=== PATIENT | male | born 1955 | race African-American/Black ===

== ENCOUNTER 2016-07-21 15:50 | Inpatient (IN) | payer OTHER ==
[~2016-07-21] VITALS: Ht 165.1 cm; Wt 71.5 kg
[~2016-07-21 15:50] MED LIST: ASPI-1093 PO; AUD NEB; BECL8.7A5 IH; BISA10S PR; CHOL400D8 PO; DEXT15SY3 PO; ESCI10TA PO; FOLI1 PO; HEPA500015 SQ; IPRA0.2S54 NEB; LEVE500T53 PO; LISI-662 PO; MOM30 PO; MULT-1203 PO; OMEP20CA4 PO; PHEN32.43 PO; THIA100 PO; TIOT185 IH
[2016-07-21] MEDS ORDERED: KETOROLAC TROMETHAMINE 30 MG/ML VIAL IVP ONE (17:30)
[2016-07-21] MEDS ORDERED: SODIUM CHLORIDE 0.9% 1,000 ML IV ONE ×2 (17:30→21:15)
[2016-07-21 17:58] LABS: BASOPHILS % (AUTO) 0.2 % (0.0-2.0); EOSINOPHILS % (AUTO) 0.2 % (1.0-6.0); HEMATOCRIT 45.1 % (41-53); HEMOGLOBIN 14.9 g/dL (13.5-17.5); LYMPHOCYTES # (AUTO) 5.6 K/uL (1.0-4.8); LYMPHOCYTES % (AUTO) 46.1 % (22.0-44.0); MEAN CORPUSCULAR HEMOGLOBIN 30.8 pg (26.0-34.0); MEAN CORPUSCULAR HGB CONC 33.1 G/dL (31.0-37.0); MEAN CORPUSCULAR VOLUME 93 fL (80-100); MONOCYTES # (AUTO) 0.9 K/uL (0.1-1.0); MONOCYTES % (AUTO) 7.7 % (2.0-9.0); NEUTROPHILS # (AUTO) 5.6 K/uL (1.8-7.7); NEUTROPHILS % (AUTO) 45.8 % (40.0-70.0); PLATELET COUNT (AUTO) 174 K/uL (150-450); RED BLOOD CELL COUNT(AUTO) 4.84 MIL/uL (4.50-5.90); RED CELL DISTRIBUTION WIDTH 15.8 % (11.5-14.5); WHITE BLOOD COUNT (AUTO) 12.2 K/uL (4.5-11.0)
[2016-07-21 18:17] LABS: ANION GAP 15 mmol/L (8-16); CALCIUM, TOTAL 8.7 mg/dL (8.8-10.5); CARBON DIOXIDE 22 mmol/L (22-29); CHLORIDE 102 mmol/L (98-107); CREATININE 1.66 mg/dL (0.60-1.30); GLOMERULAR FILTR. RATE CALC 52 mL/min (>60); POTASSIUM 4.3 mmol/L (3.5-5.1); SODIUM SERUM 139 mmol/L (136-145); UREA NITROGEN, BLOOD 42 mg/dL (7-18)
[2016-07-21 18:24] LABS: ALANINE AMINOTRANSFERASE 63 U/L (12-78); ALBUMIN 3.7 g/dL (3.4-5.0); ASPARTATE AMINOTRANSFERASE 64 U/L (15-37); BILIRUBIN,TOTAL 0.4 mg/dL (0.1-1.0); CREATINE KINASE, TOTAL 160 U/L (39-308); TOTAL PROTEIN, SERUM 9.1 g/dL (6.4-8.2)
[2016-07-21 18:45] LABS: CREATINE KINASE MB 1.9 ng/mL (0-5)
[2016-07-21] MEDS ORDERED: MORPHINE SULFATE 4 MG/ML SYRINGE IVP ONE (22:30)
[2016-07-21 23:20] VITALS: BP 130/76
[2016-07-22] VITALS (7 sets, daily range): BP systolic 90–128; BP diastolic 52–83
[2016-07-22] MEDS ORDERED: SODIUM CHLORIDE 0.9% 1,000 ML IV SCH ×2 (00:54→17:30)
[2016-07-22] MEDS ORDERED: ONDANSETRON HCL 4 MG/2 ML VIAL IVP PRN ×3 (01:00→10:15)
[2016-07-22] MEDS ORDERED: ChlordiazePOXIDE HCL 25 MG CAPSULE PO PRN (01:00)
[2016-07-22] MEDS ORDERED: 0.9% SODIUM CHLORIDE 10 ML SYRINGE IVP PRN (01:00)
[2016-07-22] MEDS: BECLOMETHASONE DIPR 80 MCG/PUFF 8.7 GM INHALER IH SCH ×3 (01:00→21:06)
[2016-07-22] MEDS ORDERED: MORPHINE SULFATE 4 MG/ML SYRINGE IVP PRN ×2 (01:30→10:15)
[2016-07-22] MEDS: DOCUSATE SODIUM 100 MG CAPSULE PO SCH ×3 (01:32→21:04)
[2016-07-22] MEDS: LevETIRAcetam 500 MG TABLET PO SCH ×3 (01:32→21:04)
[2016-07-22] MEDS: THIAMINE HCL 100 MG TABLET PO SCH ×3 (01:32→21:04)
[2016-07-22] MEDS: ChlordiazePOXIDE HCL 25 MG CAPSULE PO PRN ×4 (01:32→09:16)
[2016-07-22] MEDS: PHENobarbital 30 MG TABLET PO SCH ×3 (01:32→21:04)
[2016-07-22] MEDS: SODIUM CHLORIDE 0.9% 1,000 ML IV SCH ×3 (01:59→21:05)
[2016-07-22] MEDS: ALBUTEROL SULFATE 2.5 MG/0.5 ML NEB SOLUTION NEB SCH ×4 (02:00→20:45)
[2016-07-22] MEDS: OxyCODONE HCL/ACETAMINOPHEN 5-325 MG TABLET PO PRN ×2 (05:56→12:14)
[2016-07-22 06:06] LABS: BASOPHILS % (AUTO) 0.6 % (0.0-2.0); EOSINOPHILS % (AUTO) 3.6 % (1.0-6.0); HEMATOCRIT 37.6 % (41-53); HEMOGLOBIN 12.3 g/dL (13.5-17.5); LYMPHOCYTES # (AUTO) 3.6 K/uL (1.0-4.8); LYMPHOCYTES % (AUTO) 46.3 % (22.0-44.0); MEAN CORPUSCULAR HEMOGLOBIN 30.6 pg (26.0-34.0); MEAN CORPUSCULAR HGB CONC 32.7 G/dL (31.0-37.0); MEAN CORPUSCULAR VOLUME 94 fL (80-100); MONOCYTES # (AUTO) 0.8 K/uL (0.1-1.0); MONOCYTES % (AUTO) 9.6 % (2.0-9.0); NEUTROPHILS # (AUTO) 3.1 K/uL (1.8-7.7); NEUTROPHILS % (AUTO) 39.9 % (40.0-70.0); PLATELET COUNT (AUTO) 136 K/uL (150-450); RED BLOOD CELL COUNT(AUTO) 4.01 MIL/uL (4.50-5.90); WHITE BLOOD COUNT (AUTO) 7.8 K/uL (4.5-11.0)
[2016-07-22 06:23] LABS: ANION GAP 9 mmol/L (8-16); CALCIUM, TOTAL 7.7 mg/dL (8.8-10.5); CARBON DIOXIDE 24 mmol/L (22-29); CHLORIDE 108 mmol/L (98-107); CREATININE 0.97 mg/dL (0.60-1.30); GLOMERULAR FILTR. RATE CALC > 60 mL/min (>60); POTASSIUM 4.4 mmol/L (3.5-5.1); SODIUM SERUM 141 mmol/L (136-145); UREA NITROGEN, BLOOD 32 mg/dL (7-18)
[2016-07-22] MEDS ORDERED: KETOROLAC TROMETHAMINE 30 MG/ML VIAL IVP ONE (07:30)
[2016-07-22] MEDS ORDERED: ONDANSETRON HCL 4 MG/2 ML VIAL IVP ONE (07:30)
[2016-07-22] MEDS ORDERED: SODIUM CHLORIDE 0.9% 1,000 ML IV ONE ×2 (07:30→10:15)
[2016-07-22] MEDS ORDERED: PANTOPRAZOLE SODIUM 40 MG/VIAL IVP SCH (09:00)
[2016-07-22] MEDS ORDERED: MULTIVITAMINS, THERAPEUTIC TABLET PO SCH (09:00)
[2016-07-22] MEDS ORDERED: FOLIC ACID 1 MG TABLET PO SCH (09:00)
[2016-07-22] MEDS ORDERED: BISACODYL 10 MG RECTAL RECTAL SUPPOSITORY PR SCH (09:00)
[2016-07-22] MEDS ORDERED: LISINOPRIL 20 MG TABLET PO SCH (09:00)
[2016-07-22] MEDS ORDERED: THIAMINE HCL 100 MG/ML 2ML VIAL IM SCH (09:00)
[2016-07-22] MEDS ORDERED: CALCIUM GLUCONATE 1,000 MG in DEXTROSE 5%-WATER 50 ML IV ONE (09:15)
[2016-07-22] MEDS: ASPIRIN 81 MG EC TABLET PO SCH (09:16)
[2016-07-22] MEDS: FOLIC ACID 1 MG TABLET PO SCH (09:17)
[2016-07-22] MEDS: PANTOPRAZOLE SODIUM 40 MG/VIAL IVP SCH (09:17)
[2016-07-22] MEDS: MULTIVITAMINS, THERAPEUTIC TABLET PO SCH (09:17)
[2016-07-22] MEDS: CHOLECALCIFEROL (VIT D3) 1,000 UNITS TABLET PO SCH (09:17)
[2016-07-22] MEDS: TIOTROPIUM BROMIDE 18 MCG/INH HANDIHALER [5] IH SCH (09:18)
[2016-07-22] MEDS ORDERED: 0.9% SODIUM CHLORIDE 5 ML NEB SOLUTION NEB ONE ×4 (09:26→20:45)
[2016-07-22] MEDS ORDERED: LORazepam 2 MG/ML VIAL IVP PRN (11:00)
[2016-07-22] MEDS ORDERED: MAGNESIUM SULFATE 2 GM in DEXTROSE 5%-WATER 50 ML IV PRN (11:00)
[2016-07-22] MEDS ORDERED: MAGNESIUM OXIDE 400 MG TABLET PO PRN (11:00)
[2016-07-22] MEDS ORDERED: MAGNESIUM SULFATE 4 GM/WATER 100 ML IV PRN (11:00)
[2016-07-22 11:10] LABS: ALBUMIN 2.9 g/dL (3.4-5.0)
[2016-07-22] MEDS ORDERED: SODIUM CHLORIDE 0.9% 500 ML IV ONE ×3 (15:45→20:00)
[2016-07-22] MEDS ORDERED: VITAD1000 PO (15:45)
[2016-07-22] MEDS: ESCITALOPRAM OXALATE 10 MG TABLET PO SCH (16:39)
[2016-07-22] MEDS ORDERED: INFLUENZA VIRUS VACCINE QVS 2016-17 (3YR+)/PF 60 MCG/0.5 ML SYRINGE IM ONE (18:30)
[2016-07-22] MEDS ORDERED: ACETAMINOPHEN 325 MG TABLET PO PRN (20:00)
[2016-07-23] MEDS: ALBUTEROL SULFATE 2.5 MG/0.5 ML NEB SOLUTION NEB SCH ×2 (02:16→09:23)
[2016-07-23] MEDS ORDERED: 0.9% SODIUM CHLORIDE 5 ML NEB SOLUTION NEB ONE ×3 (02:17→14:09)
[2016-07-23] MEDS: OxyCODONE HCL/ACETAMINOPHEN 5-325 MG TABLET PO PRN ×3 (05:09→13:10)
[2016-07-23 05:12] VITALS: BP 143/96
[2016-07-23 06:13] LABS: BASOPHILS % (AUTO) 0.4 % (0.0-2.0); EOSINOPHILS % (AUTO) 3.3 % (1.0-6.0); HEMATOCRIT 43.2 % (41-53); HEMOGLOBIN 13.9 g/dL (13.5-17.5); LYMPHOCYTES # (AUTO) 2.5 K/uL (1.0-4.8); LYMPHOCYTES % (AUTO) 51.7 % (22.0-44.0); MEAN CORPUSCULAR HEMOGLOBIN 30.8 pg (26.0-34.0); MEAN CORPUSCULAR HGB CONC 32.3 G/dL (31.0-37.0); MEAN CORPUSCULAR VOLUME 95 fL (80-100); MONOCYTES # (AUTO) 0.5 K/uL (0.1-1.0); MONOCYTES % (AUTO) 9.7 % (2.0-9.0); NEUTROPHILS # (AUTO) 1.7 K/uL (1.8-7.7); NEUTROPHILS % (AUTO) 34.9 % (40.0-70.0); PLATELET COUNT (AUTO) 123 K/uL (150-450); RED BLOOD CELL COUNT(AUTO) 4.53 MIL/uL (4.50-5.90); RED CELL DISTRIBUTION WIDTH 16.2 % (11.5-14.5); WHITE BLOOD COUNT (AUTO) 4.8 K/uL (4.5-11.0)
[2016-07-23 06:29] LABS: ANION GAP 6 mmol/L (8-16); CALCIUM, TOTAL 7.8 mg/dL (8.8-10.5); CARBON DIOXIDE 25 mmol/L (22-29); CHLORIDE 111 mmol/L (98-107); CREATININE 0.75 mg/dL (0.60-1.30); GLOMERULAR FILTR. RATE CALC > 60 mL/min (>60); POTASSIUM 4.4 mmol/L (3.5-5.1); SODIUM SERUM 142 mmol/L (136-145); UREA NITROGEN, BLOOD 16 mg/dL (7-18)
[2016-07-23] MEDS ORDERED: ChlordiazePOXIDE HCL 25 MG CAPSULE PO PRN ×2 (07:00)
[2016-07-23] MEDS: SODIUM CHLORIDE 0.9% 1,000 ML IV SCH (07:07)
[2016-07-23 07:20] VITALS: BP 142/87
[2016-07-23] MEDS: LevETIRAcetam 500 MG TABLET PO SCH (08:41)
[2016-07-23] MEDS: CHOLECALCIFEROL (VIT D3) 1,000 UNITS TABLET PO SCH (08:41)
[2016-07-23] MEDS: PANTOPRAZOLE SODIUM 40 MG/VIAL IVP SCH (08:41)
[2016-07-23] MEDS: FOLIC ACID 1 MG TABLET PO SCH (08:41)
[2016-07-23] MEDS: THIAMINE HCL 100 MG TABLET PO SCH (08:41)
[2016-07-23] MEDS: PHENobarbital 30 MG TABLET PO SCH (08:41)
[2016-07-23] MEDS: DOCUSATE SODIUM 100 MG CAPSULE PO SCH (08:42)
[2016-07-23] MEDS: ASPIRIN 81 MG EC TABLET PO SCH (08:42)
[2016-07-23] MEDS: MULTIVITAMINS, THERAPEUTIC TABLET PO SCH (08:42)
[2016-07-23] MEDS: ESCITALOPRAM OXALATE 10 MG TABLET PO SCH (08:43)
[2016-07-23] MEDS: TIOTROPIUM BROMIDE 18 MCG/INH HANDIHALER [5] IH SCH (08:43)
[2016-07-23] MEDS: BECLOMETHASONE DIPR 80 MCG/PUFF 8.7 GM INHALER IH SCH (08:43)
[2016-07-23] MEDS ORDERED: ChlordiazePOXIDE HCL 25 MG CAPSULE PO SCH ×2 (09:00)
[2016-07-23 11:52] VITALS: BP 123/72
[2016-07-25] MEDS ORDERED: ChlordiazePOXIDE HCL 10 MG CAPSULE PO PRN ×2 (07:00)
[2016-07-25] MEDS ORDERED: ChlordiazePOXIDE HCL 10 MG CAPSULE PO SCH ×2 (09:00)
[2016-07-26] MEDS ORDERED: ChlordiazePOXIDE HCL 10 MG CAPSULE PO PRN ×2 (07:00)
== END 2016-07-23 14:15 | disposition home or self-care (01) | DRG 775 ==
LOC: EMS 15:52 → 6N 22:09
PROVIDERS: ADMIT Internal Medicine; ATTEND Internal Medicine
PROC: 3E0234Z Introduction of Serum, Toxoid and Vaccine into Muscle, Percutaneous Approach (ICD-10-PCS; principal; 2016-07-22)
DX: F10.229 Alcohol dependence with intoxication, unspecified (principal); N17.9 Acute kidney failure, unspecified; E44.0 Moderate protein-calorie malnutrition; J44.9 Chronic obstructive pulmonary disease, unspecified; I10 Essential (primary) hypertension; E11.9 Type 2 diabetes mellitus without complications; E78.5 Hyperlipidemia, unspecified; G40.909 Epilepsy, unspecified, not intractable, without status epilepticus; B19.20 Unspecified viral hepatitis C without hepatic coma; F17.200 Nicotine dependence, unspecified, uncomplicated; E86.0 Dehydration; Z53.29 Procedure and treatment not carried out because of patient's decision for other reasons; M19.011 Primary osteoarthritis, right shoulder; F19.10 Other psychoactive substance abuse, uncomplicated; Y90.6 Blood alcohol level of 120-199 mg/100 ml; Z68.26 Body mass index [BMI] 26.0-26.9, adult; Z79.82 Long term (current) use of aspirin; Z91.19 Patient's noncompliance with other medical treatment and regimen; Z79.899 Other long term (current) drug therapy; Z23 Encounter for immunization
CPT/HCPCS: 83735; 94640; 96361; 96374; 96375; 99285; C9113; G0480; J1885; J2270; J3535; J7030; J7040

== ENCOUNTER 2016-07-24 03:17 | Emergency (ER) | payer OTHER ==
[~2016-07-24] VITALS: Ht 177.8 cm; Wt 76.0 kg
[~2016-07-24 03:17] MED LIST changes: -CHOL400D8 PO; -DEXT15SY3 PO; -HEPA500015 SQ; -IPRA0.2S54 NEB; -LISI-662 PO; -MOM30 PO; -OMEP20CA4 PO; +VITAD1000 PO
[2016-07-24 04:43] LABS: BASOPHILS # (AUTO) 0.18 K/uL (0.00-0.20); BASOPHILS % (AUTO) 2.4 % (0.0-2.0); EOSINOPHILS # (AUTO) 0.18 K/uL (0.00-0.70); EOSINOPHILS % (AUTO) 2.36 % (1.0-6.0); HEMATOCRIT 36.6 % (41-53); HEMOGLOBIN 12.3 g/dL (13.5-17.5); LYMPHOCYTES % (AUTO) 39.5 % (22.0-44.0); MEAN CORPUSCULAR HEMOGLOBIN 31.3 pg (26.0-34.0); MEAN CORPUSCULAR HGB CONC 33.7 G/dL (31.0-37.0); MEAN CORPUSCULAR VOLUME 93 fL (80-100); MONOCYTES # (AUTO) 0.8 K/uL (0.1-1.0); NEUTROPHILS # (AUTO) 3.4 K/uL (1.8-7.7); NEUTROPHILS % (AUTO) 44.8 % (40.0-70.0); PLATELET COUNT (AUTO) 130 K/uL (150-450); RED BLOOD CELL COUNT(AUTO) 3.94 MIL/uL (4.50-5.90); RED CELL DISTRIBUTION WIDTH 16.9 % (11.5-14.5); WHITE BLOOD COUNT (AUTO) 7.5 K/uL (4.5-11.0)
[2016-07-24 04:48] LABS: ANION GAP 10 mmol/L (8-16); CALCIUM, TOTAL 8.2 mg/dL (8.8-10.5); CARBON DIOXIDE 23 mmol/L (22-29); CHLORIDE 110 mmol/L (98-107); CREATININE 0.76 mg/dL (0.60-1.30); GLOMERULAR FILTR. RATE CALC > 60 mL/min (>60); POTASSIUM 4.1 mmol/L (3.5-5.1); SODIUM SERUM 143 mmol/L (136-145); UREA NITROGEN, BLOOD 10 mg/dL (7-18)
[2016-07-24 04:53] LABS: ALANINE AMINOTRANSFERASE 73 U/L (12-78); ASPARTATE AMINOTRANSFERASE 82 U/L (15-37); BILIRUBIN,TOTAL 0.2 mg/dL (0.1-1.0); TOTAL PROTEIN, SERUM 7.4 g/dL (6.4-8.2)
[2016-07-24 06:14] VITALS: BP 125/88
== END 2016-07-24 06:28 | disposition home or self-care (01) ==
LOC: EMS 03:20
DX: F10.229 Alcohol dependence with intoxication, unspecified (principal); E78.00 Pure hypercholesterolemia, unspecified; J44.9 Chronic obstructive pulmonary disease, unspecified; I10 Essential (primary) hypertension; E11.9 Type 2 diabetes mellitus without complications; Z79.82 Long term (current) use of aspirin; Y90.6 Blood alcohol level of 120-199 mg/100 ml
CPT/HCPCS: 36415; 80053; 80307; 84484; 85025; 99284; G0480

== ENCOUNTER 2016-10-29 03:48 | Emergency (ER) | payer OTHER ==
[~2016-10-29] VITALS: Ht 165.1 cm; Wt 75.0 kg
[2016-10-29] MEDS ORDERED: ACETAMINOPHEN 500 MG TABLET PO ONE (04:30)
[2016-10-29 04:55] LABS: BASOPHILS % (AUTO) 0.3 % (0.0-2.0); HEMATOCRIT 39.6 % (41-53); HEMOGLOBIN 13.2 g/dL (13.5-17.5); LYMPHOCYTES # (AUTO) 3.5 K/uL (1.0-4.8); LYMPHOCYTES % (AUTO) 54.3 % (22.0-44.0); MEAN CORPUSCULAR HEMOGLOBIN 30.8 pg (26.0-34.0); MEAN CORPUSCULAR HGB CONC 33.5 G/dL (31.0-37.0); MEAN CORPUSCULAR VOLUME 92 fL (80-100); MONOCYTES # (AUTO) 0.5 K/uL (0.1-1.0); MONOCYTES % (AUTO) 7.5 % (2.0-9.0); NEUTROPHILS # (AUTO) 2.2 K/uL (1.8-7.7); NEUTROPHILS % (AUTO) 33.9 % (40.0-70.0); PLATELET COUNT (AUTO) 192 K/uL (150-450); RED BLOOD CELL COUNT(AUTO) 4.31 MIL/uL (4.50-5.90); RED CELL DISTRIBUTION WIDTH 14.7 % (11.5-14.5); WHITE BLOOD COUNT (AUTO) 6.4 K/uL (4.5-11.0)
[2016-10-29 05:05] LABS: ANION GAP 13 mmol/L (8-16); CALCIUM, TOTAL 8.6 mg/dL (8.8-10.5); CARBON DIOXIDE 28 mmol/L (22-29); CHLORIDE 104 mmol/L (98-107); CREATININE 0.93 mg/dL (0.60-1.30); GLOMERULAR FILTR. RATE CALC > 60 mL/min (>60); POTASSIUM 3.4 mmol/L (3.5-5.1); SODIUM SERUM 145 mmol/L (136-145); UREA NITROGEN, BLOOD 9 mg/dL (7-18)
[2016-10-29 05:11] LABS: ALANINE AMINOTRANSFERASE 165 U/L (12-78); ALBUMIN 3.7 g/dL (3.4-5.0); ASPARTATE AMINOTRANSFERASE 221 U/L (15-37); BILIRUBIN,TOTAL 0.7 mg/dL (0.1-1.0); PHENOBARBITAL 1 mcg/mL (15-40); TOTAL PROTEIN, SERUM 8.5 g/dL (6.4-8.2)
[2016-10-29] MEDS ORDERED: ASPIRIN 81 MG CHEWABLE TABLET PO ONE (06:00)
[2016-10-29] MEDS ORDERED: LORazepam 1 MG TABLET PO ONE (08:45)
[2016-10-29 11:04] VITALS: BP 136/80
== END 2016-10-29 11:34 | disposition home or self-care (01) ==
LOC: EMS 03:49
DX: G40.909 Epilepsy, unspecified, not intractable, without status epilepticus (principal); K70.10 Alcoholic hepatitis without ascites; R07.89 Other chest pain; Z76.5 Malingerer [conscious simulation]; J44.9 Chronic obstructive pulmonary disease, unspecified; E11.9 Type 2 diabetes mellitus without complications; E78.00 Pure hypercholesterolemia, unspecified; I10 Essential (primary) hypertension; B19.20 Unspecified viral hepatitis C without hepatic coma
CPT/HCPCS: 36415; 70450; 80053; 80184; 80307; 83880; 84484; 85025; 93005; 99285; G0480

== ENCOUNTER 2016-11-06 05:26 | Emergency (ER) | payer OTHER ==
[~2016-11-06] VITALS: Ht 172.7 cm; Wt 100.0 kg
[2016-11-06] MEDS ORDERED: LORazepam 1 MG TABLET PO ONE (06:30)
[2016-11-06] MEDS ORDERED: KETOROLAC TROMETHAMINE 60 MG/2 ML VIAL IM ONE (06:30)
[2016-11-06 07:04] VITALS: BP 125/78
== END 2016-11-06 07:52 | disposition home or self-care (01) ==
LOC: EMS 05:28
DX: K62.3 Rectal prolapse (principal); F10.229 Alcohol dependence with intoxication, unspecified; B19.20 Unspecified viral hepatitis C without hepatic coma; E11.9 Type 2 diabetes mellitus without complications; E78.00 Pure hypercholesterolemia, unspecified; I10 Essential (primary) hypertension; J44.9 Chronic obstructive pulmonary disease, unspecified; R56.9 Unspecified convulsions; K76.9 Liver disease, unspecified
CPT/HCPCS: 96372; 99283; J1885

== ENCOUNTER 2016-12-03 00:56 | Emergency (ER) | payer OTHER ==
[~2016-12-03] VITALS: Ht 167.6 cm; Wt 72.6 kg
[2016-12-03] MEDS ORDERED: AMIT10TA6 PO (01:11)
[2016-12-03] MEDS ORDERED: LEVE250T55 PO (01:11)
[2016-12-03] MEDS ORDERED: ALBU8HFA IH (01:11)
[2016-12-03] MEDS ORDERED: BECL8.7A7 IH (01:11)
[2016-12-03] MEDS ORDERED: AMLO-343 PO (01:11)
[2016-12-03] MEDS ORDERED: ASPI-556 PO (01:11)
[2016-12-03] MEDS ORDERED: MULT-1203 PO (01:11)
[2016-12-03] MEDS ORDERED: VIT1TABL95 PO (01:11)
[2016-12-03] MEDS ORDERED: THIA100 PO (01:11)
[2016-12-03] MEDS ORDERED: LIDO700A30 TP (01:11)
[2016-12-03] MEDS ORDERED: IBUP-1506 PO (01:11)
[2016-12-03] MEDS ORDERED: FOLI1 PO (01:11)
[2016-12-03] MEDS ORDERED: LevETIRAcetam 1,000 MG in DEXTROSE 5%-WATER 100 ML IV ONE (01:45)
[2016-12-03] MEDS ORDERED: SODIUM CHLORIDE 0.9% 1,000 ML IV ONE (02:00)
[2016-12-03 02:04] LABS: BASOPHILS % (AUTO) 0.4 % (0.0-2.0); EOSINOPHILS % (AUTO) 3.5 % (1.0-6.0); HEMATOCRIT 35.1 % (41-53); HEMOGLOBIN 11.5 g/dL (13.5-17.5); LYMPHOCYTES # (AUTO) 4.8 K/uL (1.0-4.8); LYMPHOCYTES % (AUTO) 50.6 % (22.0-44.0); MEAN CORPUSCULAR HEMOGLOBIN 30.5 pg (26.0-34.0); MEAN CORPUSCULAR HGB CONC 32.7 G/dL (31.0-37.0); MEAN CORPUSCULAR VOLUME 93 fL (80-100); MONOCYTES # (AUTO) 0.7 K/uL (0.1-1.0); MONOCYTES % (AUTO) 7.1 % (2.0-9.0); NEUTROPHILS # (AUTO) 3.6 K/uL (1.8-7.7); NEUTROPHILS % (AUTO) 38.4 % (40.0-70.0); PLATELET COUNT (AUTO) 223 K/uL (150-450); RED BLOOD CELL COUNT(AUTO) 3.78 MIL/uL (4.50-5.90); RED CELL DISTRIBUTION WIDTH 16.5 % (11.5-14.5); WHITE BLOOD COUNT (AUTO) 9.5 K/uL (4.5-11.0)
[2016-12-03 02:11] LABS: ANION GAP 9 mmol/L (8-16); CALCIUM, TOTAL 8.5 mg/dL (8.8-10.5); CARBON DIOXIDE 28 mmol/L (22-29); CHLORIDE 106 mmol/L (98-107); CREATININE 1.13 mg/dL (0.60-1.30); GLOMERULAR FILTR. RATE CALC > 60 mL/min (>60); POTASSIUM 4.1 mmol/L (3.5-5.1); SODIUM SERUM 143 mmol/L (136-145); UREA NITROGEN, BLOOD 24 mg/dL (7-18)
[2016-12-03 02:17] LABS: ALANINE AMINOTRANSFERASE 237 U/L (12-78); ALBUMIN 3.2 g/dL (3.4-5.0); ASPARTATE AMINOTRANSFERASE 205 U/L (15-37); BILIRUBIN,TOTAL 0.6 mg/dL (0.1-1.0); TOTAL PROTEIN, SERUM 8.3 g/dL (6.4-8.2)
[2016-12-03 09:14] VITALS: BP 133/79
== END 2016-12-03 09:50 | disposition home or self-care (01) ==
LOC: EMS 00:57
DX: T51.91XA Toxic effect of unspecified alcohol, accidental (unintentional), initial encounter (principal); G40.909 Epilepsy, unspecified, not intractable, without status epilepticus; D64.9 Anemia, unspecified; F10.229 Alcohol dependence with intoxication, unspecified; J44.9 Chronic obstructive pulmonary disease, unspecified; E11.9 Type 2 diabetes mellitus without complications; I10 Essential (primary) hypertension; E78.00 Pure hypercholesterolemia, unspecified; Z79.82 Long term (current) use of aspirin; Y90.8 Blood alcohol level of 240 mg/100 ml or more; Y92.89 Other specified places as the place of occurrence of the external cause
CPT/HCPCS: 36415; 70450; 71010; 80053; 80307; 85025; 93005; 96365; 99291; G0480; J0712; J7030; J7060; 99285

== ENCOUNTER 2016-12-08 21:50 | Emergency (ER) | payer OTHER ==
[~2016-12-08] VITALS: Ht 175.3 cm; Wt 95.0 kg
[~2016-12-08 21:50] MED LIST changes: +ALBU8HFA IH; +AMIT10TA6 PO; -ASPI-1093 PO; +ASPI-556 PO; -AUD NEB; -BISA10S PR; -ESCI10TA PO; +IBUP-1546 PO; +LEVE250T55 PO; -LEVE500T53 PO; +LIDO700A30 TP; -PHEN32.43 PO; -TIOT185 IH; +VIT1TABL95 PO; -VITAD1000 PO; +[UNRECOGNIZED DRUG - CODE] PO
[2016-12-08 22:26] LABS: BASOPHILS % (AUTO) 1.1 % (0.0-2.0); EOSINOPHILS % (AUTO) 3.4 % (1.0-6.0); HEMATOCRIT 34.7 % (41-53); HEMOGLOBIN 11.6 g/dL (13.5-17.5); LYMPHOCYTES # (AUTO) 5.3 K/uL (1.0-4.8); LYMPHOCYTES % (AUTO) 58.3 % (22.0-44.0); MEAN CORPUSCULAR HEMOGLOBIN 30.2 pg (26.0-34.0); MEAN CORPUSCULAR HGB CONC 33.3 G/dL (31.0-37.0); MEAN CORPUSCULAR VOLUME 91 fL (80-100); MONOCYTES # (AUTO) 0.6 K/uL (0.1-1.0); MONOCYTES % (AUTO) 6.3 % (2.0-9.0); NEUTROPHILS # (AUTO) 2.8 K/uL (1.8-7.7); NEUTROPHILS % (AUTO) 30.9 % (40.0-70.0); PLATELET COUNT (AUTO) 192 K/uL (150-450); RED BLOOD CELL COUNT(AUTO) 3.83 MIL/uL (4.50-5.90); RED CELL DISTRIBUTION WIDTH 16.8 % (11.5-14.5); WHITE BLOOD COUNT (AUTO) 9.1 K/uL (4.5-11.0)
[2016-12-08 22:37] LABS: ANION GAP 12 mmol/L (8-16); CALCIUM, TOTAL 8.7 mg/dL (8.8-10.5); CARBON DIOXIDE 24 mmol/L (22-29); CHLORIDE 108 mmol/L (98-107); CREATININE 1.19 mg/dL (0.60-1.30); GLOMERULAR FILTR. RATE CALC > 60 mL/min (>60); POTASSIUM 3.1 mmol/L (3.5-5.1); SODIUM SERUM 144 mmol/L (136-145); UREA NITROGEN, BLOOD 16 mg/dL (7-18)
[2016-12-08 22:43] LABS: ALANINE AMINOTRANSFERASE 217 U/L (12-78); ALBUMIN 3.5 g/dL (3.4-5.0); ASPARTATE AMINOTRANSFERASE 302 U/L (15-37); BILIRUBIN,TOTAL 0.6 mg/dL (0.1-1.0); TOTAL PROTEIN, SERUM 8.6 g/dL (6.4-8.2)
[2016-12-08] MEDS ORDERED: ALBUTEROL SULFATE 2.5 MG/0.5 ML NEB SOLUTION NEB ONE (23:45)
[2016-12-08] MEDS ORDERED: ALBUTEROL SULFATE 5 MG/ML 20 ML NEB SOLN [BULK] NEB ONE (23:45)
[2016-12-08] MEDS ORDERED: IPRATROPIUM BROMIDE 0.5 MG/2.5 ML NEB SOLUTION NEB ONE (23:45)
[2016-12-09] MEDS ORDERED: POTASSIUM CHLORIDE 20 MEQ ER TABLET PO ONE
[2016-12-09] MEDS ORDERED: IPRATROPIUM BROMIDE 0.5 MG/2.5 ML NEB SOLUTION NEB ONE (01:15)
[2016-12-09] MEDS ORDERED: ALBUTEROL SULFATE 5 MG/ML 20 ML NEB SOLN [BULK] NEB ONE (01:15)
[2016-12-09] MEDS ORDERED: 0.9% SODIUM CHLORIDE 15 ML NEB SOLUTION NEB ONE (01:37)
[2016-12-09 02:58] VITALS: BP 138/88
== END 2016-12-09 03:00 | disposition home or self-care (01) ==
LOC: EMS 22:02
DX: J44.1 Chronic obstructive pulmonary disease with (acute) exacerbation (principal); E11.9 Type 2 diabetes mellitus without complications; I10 Essential (primary) hypertension; E78.00 Pure hypercholesterolemia, unspecified; Z88.5 Allergy status to narcotic agent
CPT/HCPCS: 93005; 94644; 94645; 99285

== ENCOUNTER 2017-01-31 03:19 | Inpatient (IN) | payer OTHER ==
[~2017-01-31] VITALS: Ht 167.6 cm; Wt 72.6 kg
[~2017-01-31 03:19] MED LIST changes: +AMLO-343 PO; -BECL8.7A5 IH; +BECL8.7A7 IH; +IBUP-1506 PO; -IBUP-1546 PO; -[UNRECOGNIZED DRUG - CODE] PO
[2017-01-31] MEDS ORDERED: NALOXONE HCL 1 MG/ML 2 ML SYG IVP ONE (03:30)
[2017-01-31] MEDS ORDERED: PROPOFOL 1000 MG/ISO-OSM 100 ML IV ONE ×2 (03:43→15:50)
[2017-01-31] MEDS ORDERED: LACTULOSE 20 GM/30 ML SOLUTION UDCUP NG ONE (03:45)
[2017-01-31] MEDS ORDERED: VECURONIUM BROMIDE 10 MG/VIAL IVP ONE (03:45)
[2017-01-31] MEDS: PROPOFOL 1000 MG/ISO-OSM 100 ML IV PRN ×4 (03:45→21:23)
[2017-01-31 04:19] LABS: INFLUENZA TYPE A NEGATIVE FOR TYPE A (NEGATIVE)
[2017-01-31 04:20] LABS: INFLUENZA TYPE B NEGATIVE FOR TYPE B (NEGATIVE)
[2017-01-31 04:37] LABS: HEMATOCRIT 34.7 % (41-53); HEMOGLOBIN 11.2 g/dL (13.5-17.5); MEAN CORPUSCULAR HEMOGLOBIN 29.4 pg (26.0-34.0); MEAN CORPUSCULAR HGB CONC 32.4 G/dL (31.0-37.0); MEAN CORPUSCULAR VOLUME 91 fL (80-100); PLATELET COUNT (AUTO) 131 K/uL (150-450); RED BLOOD CELL COUNT(AUTO) 3.82 MIL/uL (4.50-5.90); RED CELL DISTRIBUTION WIDTH 19.8 % (11.5-14.5)
[2017-01-31 04:46] LABS: INR 1.2 (0.9-1.1); PROTHROMBIN TIME 12.6 SEC (9.4-11.6)
[2017-01-31 04:52] LABS: AMMONIA 57 umol/L (11-32); LACTIC ACID 1.4 mmol/L (0.4-2.0)
[2017-01-31 05:01] LABS: TROPONIN I < 0.02 ng/mL (0.00-0.05)
[2017-01-31 05:10] LABS: ALANINE AMINOTRANSFERASE 263 U/L (12-78); ALBUMIN 3.5 g/dL (3.4-5.0); ALKALINE PHOSPHATASE 125 U/L (46-116); ANION GAP 9 mmol/L (8-16); ASPARTATE AMINOTRANSFERASE 387 U/L (15-37); BILIRUBIN,TOTAL 1.6 mg/dL (0.1-1.0); CALCIUM, TOTAL 8.5 mg/dL (8.8-10.5); CARBON DIOXIDE 28 mmol/L (22-29); CHLORIDE 103 mmol/L (98-107); CREATINE KINASE, TOTAL 101 U/L (39-308); CREATININE 0.67 mg/dL (0.60-1.30); GLOMERULAR FILTR. RATE CALC > 60 mL/min (>60); GLUCOSE,RANDOM 130 mg/dL (70-110); LIPASE 139 U/L (73-393); SODIUM SERUM 140 mmol/L (136-145); TOTAL PROTEIN, SERUM 8.2 g/dL (6.4-8.2); UREA NITROGEN, BLOOD 10 mg/dL (7-18)
[2017-01-31 05:14] LABS: POTASSIUM 2.9 mmol/L (3.5-5.1)
[2017-01-31 05:15] LABS: B-TYPE NATRIURETIC PEPTIDE 28 pg/mL (0-100)
[2017-01-31 05:16] LABS: ACETAMINOPHEN < 2 mcg/mL (10-30); PHENYTOIN (DILANTIN) < 0.5 mcg/mL (10.0-20.0)
[2017-01-31 05:18] LABS: EOSINOPHILS % (MANUAL) 4 % (1-6); LYMPHOCYTES % (MANUAL) 61 % (22-44); MONOCYTES % (MANUAL) 2 % (2-9); SEGMENTED NEUTROPHILS % 33 % (40-70)
[2017-01-31 05:22] LABS: ABG A-A DIFF O2 155.9 mmHg (10-20.0); ABG BASE EXCESS 1.8 mmol/L (-2.0-3.0); ABG CARBOXYHEMOGLOBIN 1.3 % (0.0-1.5); ABG HCO3 25.6 mmol/L (22.0-26.0); ABG METHEMOGLOBIN 0.4 % (0.0-1.5); ABG OXYGEN CONTENT 18.9 mL/dL (15.0-23.0); ABG OXYGEN SATURATION 99.7 % (95.0-98.0); ABG PCO2 46 mmHg (35-45); ABG PH 7.382 (7.35-7.450); ABG TOTAL HEMOGLOBIN 12.7 G/dL (12.0-18.0); PO2, ARTERIAL BG 514.1 mmHg (79.0-87.0); SOURCE, BLOOD GAS ARTERIAL; TEMPERATURE, FAHRENHEIT, BG 96.5 FAHREN (96.0-98.6)
[2017-01-31 05:23] LABS: O2 DEVICE,BLOOD GAS VENTILATOR (ROOM AIR); PEEP,BG 5 cm H2O; SITE, BLOOD GAS RT RADIAL; SPONTANEOUS VT, BG 596 ml; VT, ABG 600 ml
[2017-01-31] MEDS ORDERED: 0.9% SODIUM CHLORIDE 10 ML SYRINGE IVP PRN ×2 (05:30→20:00)
[2017-01-31] MEDS ORDERED: ONDANSETRON HCL 4 MG/2 ML VIAL IVP PRN (05:30)
[2017-01-31] MEDS ORDERED: POTASSIUM CHL 10 MEQ/WATER 50 ML IV ONE (05:45)
[2017-01-31] MEDS ORDERED: SODIUM CHLORIDE 0.9% 250 ML IV ONE (05:59)
[2017-01-31 06:27] LABS: APPEARANCE,URINE CLOUDY (CLEAR); BILIRUBIN,URINE NEGATIVE (NEGATIVE); GLUCOSE, URINE (UA) NEGATIVE (NEGATIVE); KETONES,URINE NEGATIVE (NEGATIVE); LEUKOCYTE ESTERASE ,URINE NEGATIVE (NEGATIVE); NITRATE,URINE NEGATIVE (NEGATIVE); OCCULT BLOOD,URINE TRACE (NEGATIVE); PROTEIN,URINE NEGATIVE (NEGATIVE)
[2017-01-31 06:35] LABS: AMPHET/METH SCREEN,URINE NEGATIVE (NEGATIVE); BARBITURATE SCREEN, URINE NEGATIVE (NEGATIVE); BENZODIAZEPINES SCREEN,URINE NEGATIVE (NEGATIVE); CANNABINOID SCREEN,URINE NEGATIVE (NEGATIVE); COCAINE SCREEN,URINE NEGATIVE (NEGATIVE); METHADONE SCREEN, URINE NEGATIVE (NEGATIVE); OPIATE SCREEN,URINE NEGATIVE (NEGATIVE)
[2017-01-31 06:47] LABS: BACTERIA,URINE Rare /HPF (None Seen); SQUAMOUS EPITHELIAL CELL,UR Rare /LPF (None Seen); WBC,URINE 0-2 /HPF (0-5)
[2017-01-31 06:49] LABS: PHENCYCLIDINE SCREEN,URINE NEGATIVE (NEGATIVE)
[2017-01-31] MEDS: LORazepam 2 MG/ML VIAL IVP PRN ×8 (08:00→22:57)
[2017-01-31] MEDS: LevETIRAcetam 500 MG in DEXTROSE 5%-WATER 100 ML IV SCH ×3 (08:30→20:52)
[2017-01-31 09:17] LABS: GLUCOSE,POINT OF CARE 103 MG/DL (70-110)
[2017-01-31 12:18] LABS: GLUCOSE,POINT OF CARE 102 MG/DL (70-110)
[2017-01-31 17:23] LABS: GLUCOSE,POINT OF CARE 89 MG/DL (70-110)
[2017-01-31] MEDS: PANTOPRAZOLE SODIUM 40 MG/VIAL IVP SCH (20:03)
[2017-02-01] VITALS (13 sets, daily range): BP systolic 111–187; BP diastolic 72–105
[2017-02-01] MEDS: LORazepam 2 MG/ML VIAL IVP PRN ×6 (00:13→16:55)
[2017-02-01] MEDS: PROPOFOL 1000 MG/ISO-OSM 100 ML IV PRN ×4 (02:19→20:04)
[2017-02-01 07:20] LABS: ANION GAP 8 mmol/L (8-16); CALCIUM, TOTAL 8.4 mg/dL (8.8-10.5); CARBON DIOXIDE 27 mmol/L (22-29); CHLORIDE 106 mmol/L (98-107); CREATININE 0.69 mg/dL (0.60-1.30); GLOMERULAR FILTR. RATE CALC > 60 mL/min (>60); GLUCOSE,RANDOM 106 mg/dL (70-110); SODIUM SERUM 141 mmol/L (136-145); UREA NITROGEN, BLOOD 9 mg/dL (7-18)
[2017-02-01 07:41] LABS: HEMATOCRIT 35.2 % (41-53); HEMOGLOBIN 11.6 g/dL (13.5-17.5); MEAN CORPUSCULAR HEMOGLOBIN 30.3 pg (26.0-34.0); MEAN CORPUSCULAR VOLUME 92 fL (80-100); PLATELET COUNT (AUTO) 110 K/uL (150-450); RED BLOOD CELL COUNT(AUTO) 3.84 MIL/uL (4.50-5.90); RED CELL DISTRIBUTION WIDTH 19.5 % (11.5-14.5)
[2017-02-01 09:32] LABS: EOSINOPHILS % (MANUAL) 7 % (1-6); LYMPHOCYTES % (MANUAL) 42 % (22-44); MONOCYTES % (MANUAL) 2 % (2-9); SEGMENTED NEUTROPHILS % 49 % (40-70)
[2017-02-01] MEDS: LevETIRAcetam 500 MG in DEXTROSE 5%-WATER 100 ML IV SCH ×2 (09:44→20:54)
[2017-02-01] MEDS: PANTOPRAZOLE SODIUM 40 MG/VIAL IVP SCH (09:48)
[2017-02-01] MEDS ORDERED: INFLUENZA VIRUS VACCINE QVS 2017-18 (3YR+)/PF 60 MCG/0.5 ML SYRINGE IM ONE (10:45)
[2017-02-01] MEDS ORDERED: POTASSIUM CHLORIDE 20 MEQ ER TABLET PO PRN (19:30)
[2017-02-01] MEDS: ACETAMINOPHEN 325 MG TABLET PO PRN (20:05)
[2017-02-01] MEDS ORDERED: SODIUM CHLORIDE 0.9% 250 ML IV ONE (20:26)
[2017-02-02] VITALS: BP 109/73
[2017-02-02] MEDS: POTASSIUM CHL 10 MEQ/WATER 50 ML IV PRN ×3 (01:00→03:07)
[2017-02-02] MEDS: PROPOFOL 1000 MG/ISO-OSM 100 ML IV PRN ×6 (01:26→23:55)
[2017-02-02] MEDS: ACETAMINOPHEN 325 MG TABLET PO PRN ×2 (02:23→11:46)
[2017-02-02 04:00] VITALS: BP 107/70
[2017-02-02] MEDS: LORazepam 2 MG/ML VIAL IVP PRN ×3 (04:45→22:56)
[2017-02-02 05:44] LABS: BASOPHILS % (AUTO) 0.5 % (0.0-2.0); EOSINOPHILS % (AUTO) 2.5 % (1.0-6.0); HEMATOCRIT 34.9 % (41-53); HEMOGLOBIN 11.6 g/dL (13.5-17.5); LYMPHOCYTES # (AUTO) 1.9 K/uL (1.0-4.8); LYMPHOCYTES % (AUTO) 24.7 % (22.0-44.0); MEAN CORPUSCULAR HEMOGLOBIN 30.2 pg (26.0-34.0); MEAN CORPUSCULAR HGB CONC 33.2 G/dL (31.0-37.0); MEAN CORPUSCULAR VOLUME 91 fL (80-100); MONOCYTES # (AUTO) 1.4 K/uL (0.1-1.0); NEUTROPHILS # (AUTO) 4.1 K/uL (1.8-7.7); NEUTROPHILS % (AUTO) 54.3 % (40.0-70.0); RED BLOOD CELL COUNT(AUTO) 3.83 MIL/uL (4.50-5.90); RED CELL DISTRIBUTION WIDTH 20.1 % (11.5-14.5)
[2017-02-02 06:00] LABS: ANION GAP 7 mmol/L (8-16); CALCIUM, TOTAL 8.3 mg/dL (8.8-10.5); CARBON DIOXIDE 27 mmol/L (22-29); CHLORIDE 103 mmol/L (98-107); CREATININE 0.81 mg/dL (0.60-1.30); GLOMERULAR FILTR. RATE CALC > 60 mL/min (>60); GLUCOSE,RANDOM 116 mg/dL (70-110); SODIUM SERUM 137 mmol/L (136-145); UREA NITROGEN, BLOOD 8 mg/dL (7-18)
[2017-02-02 08:00] VITALS: BP 147/72
[2017-02-02] MEDS: PANTOPRAZOLE SODIUM 40 MG/VIAL IVP SCH (08:27)
[2017-02-02] MEDS: LevETIRAcetam 500 MG in DEXTROSE 5%-WATER 100 ML IV SCH ×2 (08:27→20:44)
[2017-02-02 09:46] LABS: PLATELET COUNT (AUTO) 112 K/uL (150-450)
[2017-02-02 09:51] LABS: PLATELET MORPHOLOGY COMMENT GIANT PLTS PRESENT
[2017-02-02] MEDS ORDERED: DEXTROSE 50%-WATER 25 GM/50 ML SYRINGE IVP PRN (10:30)
[2017-02-02 12:00] VITALS: BP 159/89
[2017-02-02 16:00] VITALS: BP 101/56
[2017-02-02 16:48] LABS: GLUCOSE,POINT OF CARE 128 MG/DL (70-110)
[2017-02-02] MEDS ORDERED: ETOMIDATE 2 MG/ML 10 ML VIAL IVP ONE (17:44)
[2017-02-02] MEDS ORDERED: VECURONIUM BROMIDE 10 MG/VIAL IVP ONE (17:44)
[2017-02-02 19:19] LABS: GLUCOSE,POINT OF CARE 132 MG/DL (70-110)
[2017-02-02 20:00] VITALS: BP 134/74
[2017-02-02] MEDS: LORazepam 2 MG/ML VIAL IVP SCH (23:55)
[2017-02-03] VITALS: BP 144/94
[2017-02-03 04:00] VITALS: BP 166/92
[2017-02-03] MEDS: PROPOFOL 1000 MG/ISO-OSM 100 ML IV PRN ×4 (04:44→21:52)
[2017-02-03] MEDS: INSULIN REGULAR, HUMAN 100 UNITS/ML SQ PRN ×2 (05:41→18:25)
[2017-02-03 06:02] LABS: BASOPHILS % (AUTO) 0.1 % (0.0-2.0); EOSINOPHILS % (AUTO) 2.5 % (1.0-6.0); HEMATOCRIT 37.9 % (41-53); HEMOGLOBIN 12.3 g/dL (13.5-17.5); LYMPHOCYTES # (AUTO) 2.5 K/uL (1.0-4.8); LYMPHOCYTES % (AUTO) 30.7 % (22.0-44.0); MEAN CORPUSCULAR HEMOGLOBIN 30.1 pg (26.0-34.0); MEAN CORPUSCULAR HGB CONC 32.5 G/dL (31.0-37.0); MEAN CORPUSCULAR VOLUME 92 fL (80-100); MONOCYTES # (AUTO) 0.9 K/uL (0.1-1.0); MONOCYTES % (AUTO) 11.5 % (2.0-9.0); NEUTROPHILS # (AUTO) 4.5 K/uL (1.8-7.7); NEUTROPHILS % (AUTO) 55.2 % (40.0-70.0); PLATELET COUNT (AUTO) 119 K/uL (150-450); RED CELL DISTRIBUTION WIDTH 19.7 % (11.5-14.5)
[2017-02-03 06:15] LABS: ANION GAP 7 mmol/L (8-16); CALCIUM, TOTAL 8.8 mg/dL (8.8-10.5); CARBON DIOXIDE 26 mmol/L (22-29); CHLORIDE 105 mmol/L (98-107); CREATININE 0.74 mg/dL (0.60-1.30); GLOMERULAR FILTR. RATE CALC > 60 mL/min (>60); GLUCOSE,RANDOM 177 mg/dL (70-110); POTASSIUM 3.7 mmol/L (3.5-5.1); SODIUM SERUM 138 mmol/L (136-145); UREA NITROGEN, BLOOD 7 mg/dL (7-18)
[2017-02-03] MEDS ORDERED: SODIUM CHLORIDE 0.9% 250 ML IV ONE ×2 (06:22→14:05)
[2017-02-03] MEDS: LORazepam 2 MG/ML VIAL IVP SCH (07:55)
[2017-02-03 08:00] VITALS: BP 182/95
[2017-02-03 08:30] LABS: PLATELET MORPHOLOGY COMMENT GIANT PLTS PRESENT
[2017-02-03] MEDS: PANTOPRAZOLE SODIUM 40 MG/VIAL IVP SCH (08:43)
[2017-02-03] MEDS: LevETIRAcetam 500 MG in DEXTROSE 5%-WATER 100 ML IV SCH ×2 (09:29→20:44)
[2017-02-03 09:35] LABS: ABG A-A DIFF O2 82.4 mmHg (10-20.0); ABG BASE EXCESS -0.3 mmol/L (-2.0-3.0); ABG HCO3 24.4 mmol/L (22.0-26.0); ABG METHEMOGLOBIN 0.2 % (0.0-1.5); ABG OXYGEN CONTENT 17.4 mL/dL (15.0-23.0); ABG OXYHEMOGLOBIN 95.8 % (94.0-100.0); ABG PCO2 38 mmHg (35-45); ABG PH 7.419 (7.35-7.450); ABG TOTAL HEMOGLOBIN 12.9 G/dL (12.0-18.0); PO2, ARTERIAL BG 86.5 mmHg (79.0-87.0); SOURCE, BLOOD GAS ARTERIAL; TEMPERATURE, FAHRENHEIT, BG 98.6 FAHREN (96.0-98.6)
[2017-02-03 09:41] LABS: O2 DEVICE,BLOOD GAS VENTILATOR (ROOM AIR); PEEP,BG 5 cm H2O; SITE, BLOOD GAS RT RADIAL; VT, ABG 600 ml
[2017-02-03] MEDS: AmLODIPine BESYLATE 10 MG TABLET PO SCH (09:47)
[2017-02-03] MEDS: LORazepam 2 MG/ML VIAL IVP PRN ×3 (11:55→22:02)
[2017-02-03 12:00] VITALS: BP 135/93
[2017-02-03 16:00] VITALS: BP 137/68
[2017-02-03] MEDS: ACETAMINOPHEN 325 MG TABLET PO PRN (16:29)
[2017-02-03 20:00] VITALS: BP 119/80
[2017-02-04] VITALS: BP 96/58
[2017-02-04] MEDS: PROPOFOL 1000 MG/ISO-OSM 100 ML IV PRN ×2 (02:09→06:19)
[2017-02-04] MEDS: LORazepam 2 MG/ML VIAL IVP PRN ×4 (03:53→20:42)
[2017-02-04 04:00] VITALS: BP 139/82
[2017-02-04 05:48] LABS: EOSINOPHILS % (AUTO) 2.6 % (1.0-6.0); HEMATOCRIT 36.4 % (41-53); HEMOGLOBIN 11.8 g/dL (13.5-17.5); LYMPHOCYTES # (AUTO) 2.5 K/uL (1.0-4.8); LYMPHOCYTES % (AUTO) 21.6 % (22.0-44.0); MEAN CORPUSCULAR HEMOGLOBIN 29.6 pg (26.0-34.0); MEAN CORPUSCULAR HGB CONC 32.5 G/dL (31.0-37.0); MEAN CORPUSCULAR VOLUME 91 fL (80-100); MONOCYTES # (AUTO) 1.1 K/uL (0.1-1.0); MONOCYTES % (AUTO) 9.9 % (2.0-9.0); NEUTROPHILS # (AUTO) 7.6 K/uL (1.8-7.7); NEUTROPHILS % (AUTO) 65.9 % (40.0-70.0); PLATELET COUNT (AUTO) 125 K/uL (150-450); RED CELL DISTRIBUTION WIDTH 19.9 % (11.5-14.5)
[2017-02-04 05:49] LABS: ANION GAP 6 mmol/L (8-16); CALCIUM, TOTAL 8.8 mg/dL (8.8-10.5); CARBON DIOXIDE 27 mmol/L (22-29); CHLORIDE 104 mmol/L (98-107); CREATININE 0.69 mg/dL (0.60-1.30); GLOMERULAR FILTR. RATE CALC > 60 mL/min (>60); GLUCOSE,RANDOM 134 mg/dL (70-110); POTASSIUM 3.5 mmol/L (3.5-5.1); SODIUM SERUM 137 mmol/L (136-145); UREA NITROGEN, BLOOD 8 mg/dL (7-18)
[2017-02-04] MEDS: POTASSIUM CHL 10 MEQ/WATER 50 ML IV PRN ×3 (06:53→09:21)
[2017-02-04] MEDS: AmLODIPine BESYLATE 10 MG TABLET PO SCH (08:15)
[2017-02-04] MEDS: PANTOPRAZOLE SODIUM 40 MG/VIAL IVP SCH (08:15)
[2017-02-04] MEDS: LevETIRAcetam 500 MG in DEXTROSE 5%-WATER 100 ML IV SCH ×2 (08:18→20:41)
[2017-02-04 08:34] LABS: GLUCOSE,POINT OF CARE 154 MG/DL (70-110)
[2017-02-04 08:34] LABS: GLUCOSE,POINT OF CARE 120 MG/DL (70-110)
[2017-02-04 08:34] LABS: GLUCOSE,POINT OF CARE 121 MG/DL (70-110)
[2017-02-04 08:34] LABS: GLUCOSE,POINT OF CARE 141 MG/DL (70-110)
[2017-02-04 08:34] LABS: GLUCOSE,POINT OF CARE 125 MG/DL (70-110)
[2017-02-04 08:37] LABS: GLUCOSE,POINT OF CARE 134 MG/DL (70-110)
[2017-02-04] MEDS ORDERED: SODIUM CHLORIDE 0.9% 250 ML IV ONE (08:38)
[2017-02-04] MEDS: AMINO ACIDS/PROTEIN HYDROLYS 30 ML TUBE PO SCH ×2 (10:00→14:00)
[2017-02-04 11:57] LABS: ABG A-A DIFF O2 80.9 mmHg (10-20.0); ABG BASE EXCESS -1.9 mmol/L (-2.0-3.0); ABG HCO3 23.4 mmol/L (22.0-26.0); ABG METHEMOGLOBIN 0.4 % (0.0-1.5); ABG OXYGEN CONTENT 17.7 mL/dL (15.0-23.0); ABG OXYGEN SATURATION 97.1 % (95.0-98.0); ABG OXYHEMOGLOBIN 95.7 % (94.0-100.0); ABG PCO2 36 mmHg (35-45); ABG PH 7.417 (7.35-7.450); ABG TOTAL HEMOGLOBIN 13.1 G/dL (12.0-18.0); PO2, ARTERIAL BG 90.2 mmHg (79.0-87.0); SOURCE, BLOOD GAS ARTERIAL; TEMPERATURE, FAHRENHEIT, BG 100.1 FAHREN (96.0-98.6)
[2017-02-04 11:58] LABS: CPAP, BG 0 cm H2O; O2 DEVICE,BLOOD GAS VENTILATOR (ROOM AIR); PRESSURE SUPPORT, BG 8 cm H2O; SITE, BLOOD GAS RT RADIAL; VENT MODE, BG CPAP (ROOM AIR)
[2017-02-04 13:54] VITALS: BP 186/84
[2017-02-04] MEDS ORDERED: ALBUMIN HUMAN 25%-25GM/100ML 100 ML IV SCH (14:00)
[2017-02-04 15:15] LABS: ABG A-A DIFF O2 118.2 mmHg (10-20.0); ABG BASE EXCESS 0.4 mmol/L (-2.0-3.0); ABG CARBOXYHEMOGLOBIN 1.2 % (0.0-1.5); ABG METHEMOGLOBIN 0.3 % (0.0-1.5); ABG OXYGEN CONTENT 16.7 mL/dL (15.0-23.0); ABG OXYGEN SATURATION 91.9 % (95.0-98.0); ABG OXYHEMOGLOBIN 90.5 % (94.0-100.0); ABG PCO2 38 mmHg (35-45); ABG PH 7.429 (7.35-7.450); ABG TOTAL HEMOGLOBIN 13.1 G/dL (12.0-18.0); PO2, ARTERIAL BG 64.3 mmHg (79.0-87.0); SOURCE, BLOOD GAS ARTERIAL; TEMPERATURE, FAHRENHEIT, BG 100.8 FAHREN (96.0-98.6)
[2017-02-04 15:16] LABS: O2 DEVICE,BLOOD GAS ROOM AIR (ROOM AIR); SITE, BLOOD GAS RT RADIAL
[2017-02-04] MEDS: ACETAMINOPHEN 325 MG TABLET PO PRN ×2 (16:43→22:37)
[2017-02-04 17:40] VITALS: BP 127/88
[2017-02-04] MEDS: MORPHINE SULFATE 2 MG/ML SYRINGE IVP PRN (18:14)
[2017-02-04] MEDS: IPRATROPIUM BROMIDE 0.5 MG/2.5 ML NEB SOLUTION NEB PRN ×2 (19:09→22:44)
[2017-02-04] MEDS: ALBUTEROL SULFATE 2.5 MG/0.5 ML NEB SOLUTION NEB PRN ×2 (19:10→22:44)
[2017-02-04 20:00] VITALS: BP 186/120
[2017-02-04] MEDS ORDERED: HydrALAZINE HCL 20 MG/ML VIAL IVP SCH (20:00)
[2017-02-04 22:08] LABS: GLUCOSE,POINT OF CARE 106 MG/DL (70-110)
[2017-02-04] MEDS ORDERED: HydrALAZINE HCL 20 MG/ML VIAL IVP PRN (22:15)
[2017-02-05] VITALS: BP 131/82
[2017-02-05] MEDS: ALBUTEROL SULFATE 2.5 MG/0.5 ML NEB SOLUTION NEB PRN ×4 (03:25→19:57)
[2017-02-05] MEDS: IPRATROPIUM BROMIDE 0.5 MG/2.5 ML NEB SOLUTION NEB PRN ×4 (03:25→19:57)
[2017-02-05 04:50] VITALS: BP 141/95
[2017-02-05 07:43] LABS: GLUCOSE,POINT OF CARE 102 MG/DL (70-110)
[2017-02-05 07:46] VITALS: BP 115/74
[2017-02-05] MEDS: PANTOPRAZOLE SODIUM 40 MG/VIAL IVP SCH (09:01)
[2017-02-05] MEDS: AMINO ACIDS/PROTEIN HYDROLYS 30 ML TUBE PO SCH ×2 (10:00→15:18)
[2017-02-05 11:16] VITALS: BP 102/70
[2017-02-05] MEDS: LevETIRAcetam 500 MG in DEXTROSE 5%-WATER 100 ML IV SCH ×2 (11:46→20:52)
[2017-02-05 15:11] VITALS: BP 117/74
[2017-02-05] MEDS: MORPHINE SULFATE 2 MG/ML SYRINGE IVP PRN (15:17)
[2017-02-05] MEDS: AmLODIPine BESYLATE 10 MG TABLET PO SCH (15:19)
[2017-02-05 17:58] LABS: GLUCOMETER DEV NAME(LOC) 5N 1M; GLUCOSE,POINT OF CARE 102 MG/DL (70-110)
[2017-02-05 19:26] VITALS: BP 132/83
[2017-02-05] MEDS ORDERED: 0.9% SODIUM CHLORIDE 5 ML NEB SOLUTION NEB ONE (19:52)
[2017-02-05] MEDS: ACETAMINOPHEN 325 MG TABLET PO PRN (20:50)
[2017-02-05] MEDS: LORazepam 2 MG/ML VIAL IVP PRN (20:51)
[2017-02-06] VITALS (7 sets, daily range): BP systolic 113–139; BP diastolic 59–84
[2017-02-06] MEDS: MORPHINE SULFATE 2 MG/ML SYRINGE IVP PRN ×3 (00:33→14:45)
[2017-02-06] MEDS: ALBUTEROL SULFATE 2.5 MG/0.5 ML NEB SOLUTION NEB PRN ×3 (01:02→17:24)
[2017-02-06] MEDS: IPRATROPIUM BROMIDE 0.5 MG/2.5 ML NEB SOLUTION NEB PRN ×3 (01:02→17:24)
[2017-02-06] MEDS: GuaiFENesin/D-METHORPHAN [SUGAR-FREE] 200-20MG/10 ML SYRUP UDCUP PO PRN ×4 (01:13→17:54)
[2017-02-06 06:08] LABS: GLUCOMETER DEV NAME(LOC) 5S 2N; GLUCOSE,POINT OF CARE 105 MG/DL (70-110)
[2017-02-06 06:08] LABS: GLUCOMETER DEV NAME(LOC) 5S 2N; GLUCOSE,POINT OF CARE 100 MG/DL (70-110)
[2017-02-06 06:09] LABS: GLUCOMETER DEV NAME(LOC) 5S 2N; GLUCOSE,POINT OF CARE 91 MG/DL (70-110)
[2017-02-06 06:09] LABS: GLUCOMETER DEV NAME(LOC) 5N 2R; GLUCOSE,POINT OF CARE 101 MG/DL (70-110)
[2017-02-06 07:56] LABS: ANION GAP 9 mmol/L (8-16); CALCIUM, TOTAL 8.9 mg/dL (8.8-10.5); CARBON DIOXIDE 27 mmol/L (22-29); CHLORIDE 100 mmol/L (98-107); GLOMERULAR FILTR. RATE CALC > 60 mL/min (>60); GLUCOSE,RANDOM 97 mg/dL (70-110); POTASSIUM 3.6 mmol/L (3.5-5.1); SODIUM SERUM 136 mmol/L (136-145); UREA NITROGEN, BLOOD 10 mg/dL (7-18)
[2017-02-06 07:57] LABS: BASOPHILS % (AUTO) 0.6 % (0.0-2.0); EOSINOPHILS % (AUTO) 1.2 % (1.0-6.0); HEMATOCRIT 32.9 % (41-53); LYMPHOCYTES # (AUTO) 2.9 K/uL (1.0-4.8); LYMPHOCYTES % (AUTO) 29.6 % (22.0-44.0); MEAN CORPUSCULAR HEMOGLOBIN 30.4 pg (26.0-34.0); MEAN CORPUSCULAR HGB CONC 33.4 G/dL (31.0-37.0); MEAN CORPUSCULAR VOLUME 91 fL (80-100); MONOCYTES # (AUTO) 1.2 K/uL (0.1-1.0); MONOCYTES % (AUTO) 12.7 % (2.0-9.0); NEUTROPHILS # (AUTO) 5.5 K/uL (1.8-7.7); NEUTROPHILS % (AUTO) 55.9 % (40.0-70.0); PLATELET COUNT (AUTO) 149 K/uL (150-450); RED BLOOD CELL COUNT(AUTO) 3.61 MIL/uL (4.50-5.90); RED CELL DISTRIBUTION WIDTH 19.2 % (11.5-14.5)
[2017-02-06] MEDS: LevETIRAcetam 500 MG in DEXTROSE 5%-WATER 100 ML IV SCH ×2 (08:36→20:30)
[2017-02-06] MEDS: AmLODIPine BESYLATE 10 MG TABLET PO SCH (08:36)
[2017-02-06] MEDS: PANTOPRAZOLE SODIUM 40 MG/VIAL IVP SCH (08:36)
[2017-02-06] MEDS: AMINO ACIDS/PROTEIN HYDROLYS 30 ML TUBE PO SCH ×2 (11:13→14:00)
[2017-02-06 14:33] LABS: GLUCOMETER DEV NAME(LOC) 5S 2N; GLUCOSE,POINT OF CARE 133 MG/DL (70-110)
[2017-02-06] MEDS ORDERED: ONDANSETRON HCL 4 MG/2 ML VIAL IVP PRN (19:00)
[2017-02-06] MEDS: DOCUSATE SODIUM 100 MG CAPSULE PO SCH (20:29)
[2017-02-06] MEDS: LORazepam 2 MG/ML VIAL IVP PRN (21:37)
[2017-02-06] MEDS: ACETAMINOPHEN 325 MG TABLET PO PRN (22:25)
[2017-02-07] VITALS (7 sets, daily range): BP systolic 109–132; BP diastolic 60–92
[2017-02-07] MEDS: GuaiFENesin/D-METHORPHAN [SUGAR-FREE] 200-20MG/10 ML SYRUP UDCUP PO PRN ×4 (00:06→23:48)
[2017-02-07 03:57] LABS: GLUCOMETER DEV NAME(LOC) 5S 2N; GLUCOSE,POINT OF CARE 102 MG/DL (70-110)
[2017-02-07 03:57] LABS: GLUCOMETER DEV NAME(LOC) 5S 2N; GLUCOSE,POINT OF CARE 112 MG/DL (70-110)
[2017-02-07] MEDS: IPRATROPIUM BROMIDE 0.5 MG/2.5 ML NEB SOLUTION NEB PRN ×2 (05:51→07:30)
[2017-02-07] MEDS: ALBUTEROL SULFATE 2.5 MG/0.5 ML NEB SOLUTION NEB PRN ×2 (05:51→07:30)
[2017-02-07 07:27] LABS: GLUCOMETER DEV NAME(LOC) 5N 1M; GLUCOSE,POINT OF CARE 155 MG/DL (70-110)
[2017-02-07] MEDS: OXYGEN THERAPY IH SCH ×2 (07:49→19:10)
[2017-02-07] MEDS: DOCUSATE SODIUM 100 MG CAPSULE PO SCH ×2 (08:30→19:54)
[2017-02-07] MEDS: ASPIRIN 81 MG CHEWABLE TABLET PO SCH (08:30)
[2017-02-07] MEDS: PANTOPRAZOLE SODIUM 40 MG/VIAL IVP SCH (08:30)
[2017-02-07] MEDS: AmLODIPine BESYLATE 10 MG TABLET PO SCH (08:31)
[2017-02-07] MEDS: MORPHINE SULFATE 2 MG/ML SYRINGE IVP PRN ×4 (08:32→22:01)
[2017-02-07] MEDS: LevETIRAcetam 500 MG in DEXTROSE 5%-WATER 100 ML IV SCH ×2 (08:39→19:54)
[2017-02-07] MEDS: AMINO ACIDS/PROTEIN HYDROLYS 30 ML TUBE PO SCH ×2 (10:00→14:00)
[2017-02-07] MEDS: ALBUTEROL SULFATE 2.5 MG/0.5 ML NEB SOLUTION NEB SCH ×5 (10:47→23:08)
[2017-02-07] MEDS: IPRATROPIUM BROMIDE 0.5 MG/2.5 ML NEB SOLUTION NEB SCH ×5 (10:47→23:08)
[2017-02-07 19:32] LABS: GLUCOMETER DEV NAME(LOC) 5S 2N; GLUCOSE,POINT OF CARE 90 MG/DL (70-110)
[2017-02-07 19:33] LABS: GLUCOMETER DEV NAME(LOC) 5N 1M; GLUCOSE,POINT OF CARE 121 MG/DL (70-110)
[2017-02-07] MEDS: LORazepam 2 MG/ML VIAL IVP PRN (19:55)
[2017-02-07] MEDS: INSULIN REGULAR, HUMAN 100 UNITS/ML SQ PRN (22:04)
[2017-02-08] VITALS (7 sets, daily range): BP systolic 117–132; BP diastolic 52–96
[2017-02-08] MEDS: MORPHINE SULFATE 2 MG/ML SYRINGE IVP PRN ×4 (02:01→15:46)
[2017-02-08 02:58] LABS: GLUCOMETER DEV NAME(LOC) 5S 1L; GLUCOSE,POINT OF CARE 65 MG/DL (70-110)
[2017-02-08 02:58] LABS: GLUCOMETER DEV NAME(LOC) 5S 1L; GLUCOSE,POINT OF CARE 159 MG/DL (70-110)
[2017-02-08] MEDS: IPRATROPIUM BROMIDE 0.5 MG/2.5 ML NEB SOLUTION NEB SCH ×6 (02:58→23:16)
[2017-02-08] MEDS: ALBUTEROL SULFATE 2.5 MG/0.5 ML NEB SOLUTION NEB SCH ×6 (02:58→23:16)
[2017-02-08] MEDS: LORazepam 2 MG/ML VIAL IVP PRN (03:15)
[2017-02-08] MEDS: GuaiFENesin/D-METHORPHAN [SUGAR-FREE] 200-20MG/10 ML SYRUP UDCUP PO PRN ×3 (05:50→10:48)
[2017-02-08 06:52] LABS: GLUCOMETER DEV NAME(LOC) 5S 1L; GLUCOSE,POINT OF CARE 134 MG/DL (70-110)
[2017-02-08] MEDS: OXYGEN THERAPY IH SCH ×2 (08:10→19:37)
[2017-02-08] MEDS: ASPIRIN 81 MG CHEWABLE TABLET PO SCH (08:45)
[2017-02-08] MEDS: DOCUSATE SODIUM 100 MG CAPSULE PO SCH ×2 (08:45→20:17)
[2017-02-08] MEDS: AmLODIPine BESYLATE 10 MG TABLET PO SCH (08:46)
[2017-02-08] MEDS: PANTOPRAZOLE SODIUM 40 MG/VIAL IVP SCH (08:46)
[2017-02-08] MEDS: LevETIRAcetam 500 MG in DEXTROSE 5%-WATER 100 ML IV SCH ×2 (08:47→21:00)
[2017-02-08] MEDS: AMINO ACIDS/PROTEIN HYDROLYS 30 ML TUBE PO SCH ×2 (10:47→15:00)
[2017-02-08 19:02] LABS: GLUCOMETER DEV NAME(LOC) 5S 2N; GLUCOSE,POINT OF CARE 98 MG/DL (70-110)
[2017-02-09] VITALS: BP 132/72
[2017-02-09] MEDS: ALBUTEROL SULFATE 2.5 MG/0.5 ML NEB SOLUTION NEB SCH ×2 (03:29→08:06)
[2017-02-09] MEDS: IPRATROPIUM BROMIDE 0.5 MG/2.5 ML NEB SOLUTION NEB SCH ×2 (03:29→08:06)
[2017-02-09 05:10] VITALS: BP 121/79
[2017-02-09] MEDS: GuaiFENesin/D-METHORPHAN [SUGAR-FREE] 200-20MG/10 ML SYRUP UDCUP PO PRN (05:19)
[2017-02-09] MEDS: MethylPREDNISolone SOD SUCC 125 MG/2 ML VIAL IVP SCH ×2 (05:21)
[2017-02-09] MEDS: ACETAMINOPHEN 325 MG TABLET PO PRN (06:06)
[2017-02-09 07:55] VITALS: BP 137/64
[2017-02-09] MEDS: OXYGEN THERAPY IH SCH (08:00)
[2017-02-09] MEDS: ASPIRIN 81 MG CHEWABLE TABLET PO SCH (08:52)
[2017-02-09] MEDS: AmLODIPine BESYLATE 10 MG TABLET PO SCH (08:52)
[2017-02-09] MEDS: DOCUSATE SODIUM 100 MG CAPSULE PO SCH (08:52)
[2017-02-09] MEDS: PANTOPRAZOLE SODIUM 40 MG/VIAL IVP SCH (09:00)
[2017-02-09] MEDS: LevETIRAcetam 500 MG in DEXTROSE 5%-WATER 100 ML IV SCH (09:00)
[2017-02-09] MEDS ORDERED: LEVE500T53 PO (09:53)
[2017-02-09] MEDS ORDERED: PRED20 PO (09:56)
[2017-02-09] MEDS ORDERED: AMLO-512 PO (09:56)
[2017-02-09] MEDS ORDERED: IPRA4AER IH (09:57)
[2017-02-09] MEDS: AMINO ACIDS/PROTEIN HYDROLYS 30 ML TUBE PO SCH (10:00)
[2017-02-12 19:49] LABS: GLUCOMETER DEV NAME(LOC) 5S 1L; GLUCOSE,POINT OF CARE 109 MG/DL (70-110)
[2017-02-12 19:49] LABS: GLUCOMETER DEV NAME(LOC) 5S 1L; GLUCOSE,POINT OF CARE 100 MG/DL (70-110)
== END 2017-02-09 10:55 | disposition home or self-care (01) | DRG 130 ==
LOC: EDUNIT# 03:19 → EMS 03:22 → ICU 02-01 03:30 → 5S 02-05 04:30
PROVIDERS: ADMIT Hospitalist; ATTEND Hospitalist
PROC: 5A1955Z Respiratory Ventilation, Greater than 96 Consecutive Hours (ICD-10-PCS; principal; 2017-02-01)
PROC: 0BH17EZ Insertion of Endotracheal Airway into Trachea, Via Natural or Artificial Opening (ICD-10-PCS; 2017-02-01)
PROC: 3E0234Z Introduction of Serum, Toxoid and Vaccine into Muscle, Percutaneous Approach (ICD-10-PCS; 2017-02-01)
DX: J96.00 Acute respiratory failure, unspecified whether with hypoxia or hypercapnia (principal); G92 Toxic encephalopathy; N17.9 Acute kidney failure, unspecified; G31.2 Degeneration of nervous system due to alcohol; J44.9 Chronic obstructive pulmonary disease, unspecified; F10.129 Alcohol abuse with intoxication, unspecified; B19.20 Unspecified viral hepatitis C without hepatic coma; E11.9 Type 2 diabetes mellitus without complications; I10 Essential (primary) hypertension; E87.6 Hypokalemia; K72.90 Hepatic failure, unspecified without coma; T51.0X1A Toxic effect of ethanol, accidental (unintentional), initial encounter; R74.0 Nonspecific elevation of levels of transaminase and lactic acid dehydrogenase [LDH]; Z23 Encounter for immunization
CPT/HCPCS: 31500; 36556; 51702; 70450; 82805; 82962; 83605; 84132; 87040; 87081; 87804; 90471; 92526; 92610; 93005; 94002; 94003; 94640; 95816; 96365; 96366; 96375; 97110; 97116; 97163; 97166; 97530; 97535; 99291; C9113; G0480; G0481; J0360; J0712; J2060; J2270; J2704; J3480; J3490; J7050; J7060; P9046

== ENCOUNTER 2017-03-04 16:11 | Inpatient (IN) | payer OTHER ==
[~2017-03-04] VITALS: Ht 167.6 cm; Wt 68.0 kg
[~2017-03-04 16:11] MED LIST changes: +AMLO-512 PO; -IBUP-1506 PO; +IPRA4AER IH; -LEVE250T55 PO; +LEVE500T53 PO; -LIDO700A30 TP; +PRED20 PO
[2017-03-04] MEDS ORDERED: 0.9% SODIUM CHLORIDE 5 ML NEB SOLUTION NEB ONE (16:23)
[2017-03-04] MEDS ORDERED: ALBUTEROL SULFATE 2.5 MG/0.5 ML NEB SOLUTION NEB ONE (16:30)
[2017-03-04] MEDS ORDERED: IPRATROPIUM BROMIDE 0.5 MG/2.5 ML NEB SOLUTION NEB ONE ×2 (16:30→17:00)
[2017-03-04] MEDS ORDERED: MethylPREDNISolone SOD SUCC 125 MG/2 ML VIAL IVP ONE (16:30)
[2017-03-04] MEDS ORDERED: 0.9% SODIUM CHLORIDE 15 ML NEB SOLUTION NEB ONE ×2 (16:46→16:55)
[2017-03-04] MEDS ORDERED: LORazepam 2 MG/ML VIAL ONE (16:51)
[2017-03-04 16:57] LABS: HEMATOCRIT 34.2 % (41-53); HEMOGLOBIN 11.5 g/dL (13.5-17.5); MEAN CORPUSCULAR HEMOGLOBIN 29.3 pg (26.0-34.0); MEAN CORPUSCULAR HGB CONC 33.5 G/dL (31.0-37.0); MEAN CORPUSCULAR VOLUME 88 fL (80-100); PLATELET COUNT (AUTO) 129 K/uL (150-450); RED BLOOD CELL COUNT(AUTO) 3.91 MIL/uL (4.50-5.90); RED CELL DISTRIBUTION WIDTH 19.1 % (11.5-14.5); WHITE BLOOD COUNT (AUTO) 7.8 K/uL (4.5-11.0)
[2017-03-04] MEDS ORDERED: LevETIRAcetam 1,000 MG in DEXTROSE 5%-WATER 100 ML IV ONE (17:00)
[2017-03-04] MEDS ORDERED: ALBUTEROL SULFATE 5 MG/ML 20 ML NEB SOLN [BULK] NEB ONE (17:00)
[2017-03-04] MEDS ORDERED: LORazepam 2 MG/ML VIAL IVP ONE (17:00)
[2017-03-04 17:05] LABS: INR 1.1 (0.9-1.1)
[2017-03-04 17:06] LABS: ANION GAP 9 mmol/L (8-16); CALCIUM, TOTAL 8.5 mg/dL (8.8-10.5); CARBON DIOXIDE 29 mmol/L (22-29); CHLORIDE 103 mmol/L (98-107); CREATININE 0.88 mg/dL (0.60-1.30); GLOMERULAR FILTR. RATE CALC > 60 mL/min (>60); POTASSIUM 3.4 mmol/L (3.5-5.1); SODIUM SERUM 141 mmol/L (136-145); UREA NITROGEN, BLOOD 10 mg/dL (7-18)
[2017-03-04 17:21] LABS: B-TYPE NATRIURETIC PEPTIDE 185 pg/mL (0-100)
[2017-03-04 17:23] LABS: BAND NEUTROPHILS % (MANUAL) 2 % (1-5); LYMPHOCYTES % (MANUAL) 43 % (22-44); RBC MORPHOLOGY COMMENT ABNORMAL RBC MORPH; TOTAL CELLS COUNTED 100
[2017-03-04 17:59] LABS: ALANINE AMINOTRANSFERASE 219 U/L (12-78); ALBUMIN 3.3 g/dL (3.4-5.0); ASPARTATE AMINOTRANSFERASE 336 U/L (15-37); BILIRUBIN,TOTAL 0.9 mg/dL (0.1-1.0); CREATINE KINASE MB 0.5 ng/mL (0-5); CREATINE KINASE, TOTAL 79 U/L (39-308); TOTAL PROTEIN, SERUM 9.1 g/dL (6.4-8.2)
[2017-03-04 20:15] VITALS: BP 106/64
[2017-03-04] MEDS ORDERED: -PHARMACY VACCINE NOTE- MISC ONE ×2 (22:30)
[2017-03-04 23:54] VITALS: BP 122/75
[2017-03-05] MEDS ORDERED: LORazepam 2 MG/ML VIAL IVP PRN (00:30)
[2017-03-05] MEDS ORDERED: DEXTROSE 50%-WATER 25 GM/50 ML SYRINGE IVP PRN (00:30)
[2017-03-05] MEDS ORDERED: POTASSIUM CHLORIDE 20 MEQ ER TABLET PO PRN (00:30)
[2017-03-05] MEDS ORDERED: POTASSIUM CHL 10 MEQ/WATER 50 ML IV PRN (00:30)
[2017-03-05 04:28] VITALS: BP 135/71
[2017-03-05] MEDS: ALBUTEROL SULFATE 2.5 MG/0.5 ML NEB SOLUTION NEB PRN ×3 (04:54→19:27)
[2017-03-05] MEDS: IPRATROPIUM BROMIDE 0.5 MG/2.5 ML NEB SOLUTION NEB PRN ×3 (04:54→19:27)
[2017-03-05] MEDS ORDERED: SODIUM CHLORIDE 0.9% 50 ML ONE (05:31)
[2017-03-05] MEDS: LevETIRAcetam 500 MG in DEXTROSE 5%-WATER 100 ML IV SCH ×2 (05:39→16:37)
[2017-03-05] MEDS: INSULIN ASPART 100 UNITS/ML SQ PRN ×3 (05:55→20:55)
[2017-03-05 06:01] LABS: EOSINOPHILS # (AUTO) 0.01 K/uL (0.00-0.70); EOSINOPHILS % (AUTO) 0.31 % (1.0-6.0); HEMATOCRIT 32.1 % (41-53); HEMOGLOBIN 10.3 g/dL (13.5-17.5); LYMPHOCYTES # (AUTO) 0.5 K/uL (1.0-4.8); LYMPHOCYTES % (AUTO) 14.4 % (22.0-44.0); MEAN CORPUSCULAR HEMOGLOBIN 28.6 pg (26.0-34.0); MEAN CORPUSCULAR HGB CONC 32.1 G/dL (31.0-37.0); MEAN CORPUSCULAR VOLUME 89 fL (80-100); MONOCYTES # (AUTO) 0.1 K/uL (0.1-1.0); NEUTROPHILS # (AUTO) 2.9 K/uL (1.8-7.7); NEUTROPHILS % (AUTO) 81.3 % (40.0-70.0); PLATELET COUNT (AUTO) 121 K/uL (150-450); RED BLOOD CELL COUNT(AUTO) 3.61 MIL/uL (4.50-5.90); RED CELL DISTRIBUTION WIDTH 18.4 % (11.5-14.5); WHITE BLOOD COUNT (AUTO) 3.5 K/uL (4.5-11.0)
[2017-03-05 07:56] VITALS: BP 114/68
[2017-03-05 08:18] LABS: GLUCOSE COMMENT 1 Received Meds; GLUCOSE,POINT OF CARE 217 MG/DL (70-110)
[2017-03-05 08:18] LABS: GLUCOSE,POINT OF CARE 207 MG/DL (70-110)
[2017-03-05] MEDS: THIAMINE HCL 100 MG TABLET PO SCH (08:53)
[2017-03-05] MEDS: ENOXAPARIN SODIUM 40 MG/0.4 ML PF SYRINGE SQ SCH (08:53)
[2017-03-05] MEDS: MULTIVITAMINS, THERAPEUTIC TABLET PO SCH (08:53)
[2017-03-05] MEDS: FOLIC ACID 1 MG TABLET PO SCH (08:53)
[2017-03-05] MEDS: MethylPREDNISolone SOD SUCC 40 MG/ML VIAL IVP SCH (09:57)
[2017-03-05 10:57] LABS: ANION GAP 11 mmol/L (8-16); CALCIUM, TOTAL 8.2 mg/dL (8.8-10.5); CARBON DIOXIDE 25 mmol/L (22-29); CHLORIDE 104 mmol/L (98-107); CREATININE 0.83 mg/dL (0.60-1.30); GLOMERULAR FILTR. RATE CALC > 60 mL/min (>60); POTASSIUM 3.9 mmol/L (3.5-5.1); SODIUM SERUM 140 mmol/L (136-145); UREA NITROGEN, BLOOD 8 mg/dL (7-18)
[2017-03-05 11:17] VITALS: BP 137/86
[2017-03-05] MEDS: LEVOFLOXACIN 750 MG/D5% WATER 150 ML IV SCH (11:26)
[2017-03-05] MEDS: MORPHINE SULFATE 2 MG/ML SYRINGE IVP PRN ×2 (11:29→20:07)
[2017-03-05] MEDS: GuaiFENesin/CODEINE [SUGAR FREE] 200-20MG/10 ML SYRUP UDCUP PO PRN ×2 (12:00→23:43)
[2017-03-05] MEDS ORDERED: 0.9% SODIUM CHLORIDE 5 ML NEB SOLUTION NEB ONE (12:29)
[2017-03-05 15:26] VITALS: BP 134/52
[2017-03-05] MEDS: ACETAMINOPHEN 325 MG TABLET PO PRN (16:36)
[2017-03-05] MEDS ORDERED: SODIUM CHLORIDE 0.9% 250 ML IV ONE (17:34)
[2017-03-05 19:41] VITALS: BP 144/79
[2017-03-05 20:12] LABS: INFLUENZA TYPE B NEGATIVE FOR TYPE B (NEGATIVE)
[2017-03-05] MEDS: ZOLPIDEM TARTRATE 10 MG TABLET PO PRN (20:54)
[2017-03-05 23:52] VITALS: BP 151/78
[2017-03-06 03:58] VITALS: BP 130/86
[2017-03-06] MEDS: MORPHINE SULFATE 2 MG/ML SYRINGE IVP PRN ×3 (04:01→17:19)
[2017-03-06] MEDS: LevETIRAcetam 500 MG in DEXTROSE 5%-WATER 100 ML IV SCH ×2 (04:01→16:45)
[2017-03-06] MEDS: IPRATROPIUM BROMIDE 0.5 MG/2.5 ML NEB SOLUTION NEB PRN ×2 (04:30→09:04)
[2017-03-06] MEDS: ALBUTEROL SULFATE 2.5 MG/0.5 ML NEB SOLUTION NEB PRN ×2 (04:30→09:04)
[2017-03-06] MEDS: GuaiFENesin/CODEINE [SUGAR FREE] 200-20MG/10 ML SYRUP UDCUP PO PRN ×2 (05:54→23:03)
[2017-03-06 07:01] VITALS: BP 129/77
[2017-03-06 07:53] LABS: GLUCOSE,POINT OF CARE 128 MG/DL (70-110)
[2017-03-06 07:53] LABS: GLUCOSE,POINT OF CARE 109 MG/DL (70-110)
[2017-03-06] MEDS: MethylPREDNISolone SOD SUCC 40 MG/ML VIAL IVP SCH (09:18)
[2017-03-06] MEDS: THIAMINE HCL 100 MG TABLET PO SCH (09:29)
[2017-03-06] MEDS: MULTIVITAMINS, THERAPEUTIC TABLET PO SCH (09:29)
[2017-03-06] MEDS: FOLIC ACID 1 MG TABLET PO SCH (09:29)
[2017-03-06] MEDS: ENOXAPARIN SODIUM 40 MG/0.4 ML PF SYRINGE SQ SCH (09:31)
[2017-03-06] MEDS: LEVOFLOXACIN 750 MG/D5% WATER 150 ML IV SCH (09:35)
[2017-03-06 11:09] VITALS: BP 128/79
[2017-03-06] MEDS: INSULIN ASPART 100 UNITS/ML SQ PRN ×3 (11:43→21:06)
[2017-03-06] MEDS ORDERED: IPRATROPIUM BROMIDE 0.5 MG/2.5 ML NEB SOLUTION NEB PRN (12:00)
[2017-03-06] MEDS ORDERED: HYDROCODONE/CHLORPHEN POLIS 10-8 MG/5 ML ORAL.SYG PO PRN (12:00)
[2017-03-06] MEDS ORDERED: ALBUTEROL SULFATE 2.5 MG/0.5 ML NEB SOLUTION NEB PRN (12:00)
[2017-03-06] MEDS ORDERED: MethylPREDNISolone SOD SUCC 40 MG/ML VIAL IVP SCH (12:00)
[2017-03-06] MEDS: MethylPREDNISolone SOD SUCC 125 MG/2 ML VIAL IVP SCH ×2 (12:08→17:15)
[2017-03-06] MEDS: ALBUTEROL SULFATE 2.5 MG/0.5 ML NEB SOLUTION NEB SCH ×2 (12:14→19:32)
[2017-03-06] MEDS: HYDROCODONE/CHLORPHEN POLIS 10-8 MG/5 ML ORAL.SYG PO SCH ×2 (12:14→17:15)
[2017-03-06] MEDS: IPRATROPIUM BROMIDE 0.5 MG/2.5 ML NEB SOLUTION NEB SCH ×2 (12:15→19:32)
[2017-03-06] MEDS: CefTRIAXone 1 GM/DEXTROSE 50 ML IV SCH (12:16)
[2017-03-06 15:19] VITALS: BP 130/86
[2017-03-06 15:19] LABS: TEMPERATURE, FAHRENHEIT, BG 98.6 FAHREN (96.0-98.6)
[2017-03-06 15:22] LABS: ABG A-A DIFF O2 62.6 mmHg (10-20.0); ABG BASE EXCESS 1.7 mmol/L (-2.0-3.0); ABG OXYHEMOGLOBIN 66.4 % (94.0-100.0); ABG PCO2 43 mmHg (35-45); ABG PH 7.408 (7.35-7.450)
[2017-03-06 15:26] LABS: ALLEN TEST, BLOOD GAS Positive
[2017-03-06] MEDS ORDERED: BENZONATATE 100 MG CAPSULE PO SCH (16:00)
[2017-03-06] MEDS: BENZONATATE 100 MG CAPSULE PO SCH ×2 (16:45→20:48)
[2017-03-06 19:40] VITALS: BP 156/89
[2017-03-06] MEDS: ZOLPIDEM TARTRATE 10 MG TABLET PO PRN (20:47)
[2017-03-06] MEDS: FLUTICASONE/VILANTEROL 200-25 MCG/INH INHALER [14] IH SCH (20:48)
[2017-03-06] MEDS: GuaiFENesin SR 600 MG ER TABLET PO SCH (20:48)
[2017-03-06] MEDS: HYDROCODONE/ACETAMINOPHEN 5-325 MG TABLET PO PRN (20:48)
[2017-03-06 23:08] LABS: GLUCOSE COMMENT 1 Received Meds; GLUCOSE,POINT OF CARE 177 MG/DL (70-110)
[2017-03-06 23:09] LABS: GLUCOSE COMMENT 1 Received Meds; GLUCOSE,POINT OF CARE 184 MG/DL (70-110)
[2017-03-06 23:09] LABS: GLUCOSE COMMENT 1 Received Meds; GLUCOSE,POINT OF CARE 233 MG/DL (70-110)
[2017-03-06 23:09] LABS: GLUCOSE COMMENT 1 Received Meds; GLUCOSE,POINT OF CARE 186 MG/DL (70-110)
[2017-03-06 23:09] LABS: GLUCOSE,POINT OF CARE 147 MG/DL (70-110)
[2017-03-07 00:07] VITALS: BP 156/64
[2017-03-07] MEDS: HYDROCODONE/CHLORPHEN POLIS 10-8 MG/5 ML ORAL.SYG PO SCH ×5 (00:45→23:26)
[2017-03-07] MEDS: MethylPREDNISolone SOD SUCC 125 MG/2 ML VIAL IVP SCH ×3 (00:46→11:56)
[2017-03-07] MEDS: IPRATROPIUM BROMIDE 0.5 MG/2.5 ML NEB SOLUTION NEB SCH ×4 (02:15→19:19)
[2017-03-07] MEDS: ALBUTEROL SULFATE 2.5 MG/0.5 ML NEB SOLUTION NEB SCH ×4 (02:15→19:19)
[2017-03-07 04:52] LABS: APPEARANCE,URINE CLEAR (CLEAR); GLUCOSE, URINE (UA) 100 mg/dL (NEGATIVE); KETONES,URINE NEGATIVE (NEGATIVE); LEUKOCYTE ESTERASE ,URINE NEGATIVE (NEGATIVE); OCCULT BLOOD,URINE NEGATIVE (NEGATIVE); PH,URINE 7.5 (5.0-8.0); PROTEIN,URINE NEGATIVE (NEGATIVE)
[2017-03-07 04:58] VITALS: BP 144/85
[2017-03-07 04:58] LABS: ADD UA MICROSCOPIC YES
[2017-03-07] MEDS: LevETIRAcetam 500 MG in DEXTROSE 5%-WATER 100 ML IV SCH ×2 (05:01→16:20)
[2017-03-07] MEDS: HYDROCODONE/ACETAMINOPHEN 5-325 MG TABLET PO PRN ×2 (05:08→21:13)
[2017-03-07 05:13] LABS: RBC,URINE 0-2 /HPF (0-2); SQUAMOUS EPITHELIAL CELL,UR Rare /LPF (None Seen); WBC,URINE 0-2 /HPF (0-5)
[2017-03-07] MEDS: INSULIN ASPART 100 UNITS/ML SQ PRN ×4 (06:29→21:09)
[2017-03-07] MEDS: FOLIC ACID 1 MG TABLET PO SCH (08:24)
[2017-03-07] MEDS: MULTIVITAMINS, THERAPEUTIC TABLET PO SCH (08:24)
[2017-03-07] MEDS: THIAMINE HCL 100 MG TABLET PO SCH (08:24)
[2017-03-07] MEDS: BENZONATATE 100 MG CAPSULE PO SCH ×3 (08:24→21:07)
[2017-03-07] MEDS: GuaiFENesin SR 600 MG ER TABLET PO SCH ×2 (08:25→21:07)
[2017-03-07] MEDS: ENOXAPARIN SODIUM 40 MG/0.4 ML PF SYRINGE SQ SCH (08:25)
[2017-03-07 09:00] VITALS: BP 147/95
[2017-03-07 10:07] LABS: ANION GAP 9 mmol/L (8-16); CALCIUM, TOTAL 9.2 mg/dL (8.8-10.5); CARBON DIOXIDE 28 mmol/L (22-29); CHLORIDE 95 mmol/L (98-107); CREATININE 0.91 mg/dL (0.60-1.30); GLOMERULAR FILTR. RATE CALC > 60 mL/min (>60); POTASSIUM 4.3 mmol/L (3.5-5.1); SODIUM SERUM 132 mmol/L (136-145); UREA NITROGEN, BLOOD 15 mg/dL (7-18)
[2017-03-07 10:10] LABS: PHOSPHORUS 3.5 mg/dL (2.5-4.9)
[2017-03-07 11:20] VITALS: BP 148/82
[2017-03-07] MEDS: CefTRIAXone 1 GM/DEXTROSE 50 ML IV SCH (11:56)
[2017-03-07] MEDS ORDERED: MAGNESIUM SULFATE 4 GM/WATER 100 ML IV PRN (13:45)
[2017-03-07] MEDS ORDERED: MAGNESIUM SULFATE 2 GM in DEXTROSE 5%-WATER 50 ML IV PRN (13:45)
[2017-03-07] MEDS: MAGNESIUM OXIDE 400 MG TABLET PO PRN ×3 (14:16→21:14)
[2017-03-07] MEDS: MORPHINE SULFATE 2 MG/ML SYRINGE IVP PRN (14:17)
[2017-03-07 15:47] LABS: GLUCOSE COMMENT 1 Received Meds; GLUCOSE,POINT OF CARE 172 MG/DL (70-110)
[2017-03-07 16:20] VITALS: BP 150/87
[2017-03-07] MEDS: MethylPREDNISolone SOD SUCC 40 MG/ML VIAL IVP SCH ×2 (17:30→23:26)
[2017-03-07 19:29] VITALS: BP 146/86
[2017-03-07 20:07] LABS: GLUCOSE COMMENT 1 Received Meds; GLUCOSE,POINT OF CARE 240 MG/DL (70-110)
[2017-03-07] MEDS: FLUTICASONE/VILANTEROL 200-25 MCG/INH INHALER [14] IH SCH (21:07)
[2017-03-07] MEDS: GuaiFENesin/CODEINE [SUGAR FREE] 200-20MG/10 ML SYRUP UDCUP PO PRN (23:26)
[2017-03-08 00:47] VITALS: BP 151/87
[2017-03-08] MEDS: IPRATROPIUM BROMIDE 0.5 MG/2.5 ML NEB SOLUTION NEB SCH ×4 (01:22→19:26)
[2017-03-08] MEDS: ALBUTEROL SULFATE 2.5 MG/0.5 ML NEB SOLUTION NEB SCH ×4 (01:22→19:26)
[2017-03-08] MEDS: HYDROCODONE/ACETAMINOPHEN 5-325 MG TABLET PO PRN (04:56)
[2017-03-08] MEDS: LevETIRAcetam 500 MG in DEXTROSE 5%-WATER 100 ML IV SCH ×2 (04:56→18:12)
[2017-03-08 05:00] VITALS: BP 158/91
[2017-03-08] MEDS: MethylPREDNISolone SOD SUCC 40 MG/ML VIAL IVP SCH ×2 (05:16→12:41)
[2017-03-08] MEDS: HYDROCODONE/CHLORPHEN POLIS 10-8 MG/5 ML ORAL.SYG PO SCH ×4 (05:16→23:48)
[2017-03-08] MEDS: INSULIN ASPART 100 UNITS/ML SQ PRN ×4 (06:17→20:41)
[2017-03-08] MEDS: ACETAMINOPHEN 325 MG TABLET PO PRN (07:39)
[2017-03-08 08:08] VITALS: BP 163/92
[2017-03-08] MEDS: ENOXAPARIN SODIUM 40 MG/0.4 ML PF SYRINGE SQ SCH (09:07)
[2017-03-08] MEDS: MULTIVITAMINS, THERAPEUTIC TABLET PO SCH (09:08)
[2017-03-08] MEDS: THIAMINE HCL 100 MG TABLET PO SCH (09:08)
[2017-03-08] MEDS: FOLIC ACID 1 MG TABLET PO SCH (09:08)
[2017-03-08] MEDS: BENZONATATE 100 MG CAPSULE PO SCH ×3 (09:08→20:38)
[2017-03-08] MEDS: GuaiFENesin SR 600 MG ER TABLET PO SCH ×2 (09:08→20:38)
[2017-03-08] MEDS: MORPHINE SULFATE 2 MG/ML SYRINGE IVP PRN ×3 (09:15→21:48)
[2017-03-08 11:47] VITALS: BP 136/93
[2017-03-08] MEDS: CefTRIAXone 1 GM/DEXTROSE 50 ML IV SCH (12:42)
[2017-03-08 15:50] VITALS: BP 150/90
[2017-03-08] MEDS ORDERED: SODIUM CHLORIDE 0.9% 500 ML IV ONE (17:54)
[2017-03-08] MEDS: PredniSONE 20 MG TABLET PO SCH (19:00)
[2017-03-08 19:07] LABS: GLUCOSE COMMENT 1 Received Meds; GLUCOSE,POINT OF CARE 227 MG/DL (70-110)
[2017-03-08] MEDS: FLUTICASONE/VILANTEROL 200-25 MCG/INH INHALER [14] IH SCH (20:39)
[2017-03-08 20:44] VITALS: BP 144/95
[2017-03-08] MEDS: ZOLPIDEM TARTRATE 10 MG TABLET PO PRN (21:48)
[2017-03-08] MEDS: GuaiFENesin/CODEINE [SUGAR FREE] 200-20MG/10 ML SYRUP UDCUP PO PRN (22:13)
[2017-03-09 00:08] VITALS: BP 157/97
[2017-03-09] MEDS: ALBUTEROL SULFATE 2.5 MG/0.5 ML NEB SOLUTION NEB SCH ×4 (02:13→15:17)
[2017-03-09] MEDS: IPRATROPIUM BROMIDE 0.5 MG/2.5 ML NEB SOLUTION NEB SCH ×4 (02:13→15:17)
[2017-03-09 04:07] VITALS: BP 150/98
[2017-03-09] MEDS: LevETIRAcetam 500 MG in DEXTROSE 5%-WATER 100 ML IV SCH (05:56)
[2017-03-09] MEDS: HYDROCODONE/CHLORPHEN POLIS 10-8 MG/5 ML ORAL.SYG PO SCH ×2 (05:56→11:58)
[2017-03-09] MEDS: MORPHINE SULFATE 2 MG/ML SYRINGE IVP PRN ×2 (05:56→10:45)
[2017-03-09 07:29] VITALS: BP 160/90
[2017-03-09 08:17] LABS: GLUCOSE,POINT OF CARE 144 MG/DL (70-110)
[2017-03-09 08:17] LABS: GLUCOSE,POINT OF CARE 245 MG/DL (70-110)
[2017-03-09] MEDS: ENOXAPARIN SODIUM 40 MG/0.4 ML PF SYRINGE SQ SCH (08:49)
[2017-03-09] MEDS: BENZONATATE 100 MG CAPSULE PO SCH (08:49)
[2017-03-09] MEDS: GuaiFENesin SR 600 MG ER TABLET PO SCH (08:49)
[2017-03-09] MEDS: PredniSONE 20 MG TABLET PO SCH (08:49)
[2017-03-09] MEDS: THIAMINE HCL 100 MG TABLET PO SCH (08:49)
[2017-03-09] MEDS: FOLIC ACID 1 MG TABLET PO SCH (08:49)
[2017-03-09] MEDS: MULTIVITAMINS, THERAPEUTIC TABLET PO SCH (08:49)
[2017-03-09 11:44] VITALS: BP 134/82
[2017-03-09] MEDS: CefTRIAXone 1 GM/DEXTROSE 50 ML IV SCH (11:58)
[2017-03-09 12:03] LABS: GLUCOSE,POINT OF CARE 128 MG/DL (70-110)
[2017-03-09] MEDS: ACETAMINOPHEN 325 MG TABLET PO PRN (13:41)
[2017-03-09 23:17] LABS: GLUCOSE COMMENT 1 Received Meds; GLUCOSE,POINT OF CARE 183 MG/DL (70-110)
[2017-03-09 23:22] LABS: GLUCOSE,POINT OF CARE 182 MG/DL (70-110)
[2017-03-09 23:22] LABS: GLUCOSE,POINT OF CARE 215 MG/DL (70-110)
[2017-03-10 05:33] LABS: GLUCOSE COMMENT 1 Received Meds; GLUCOSE,POINT OF CARE 172 MG/DL (70-110)
== END 2017-03-09 15:33 | disposition home or self-care (01) | DRG 140 ==
LOC: EMS 16:14 → 5S 18:57 → 6N 03-08 15:10
PROVIDERS: ADMIT Hospitalist; ATTEND Hospitalist
DX: J44.1 Chronic obstructive pulmonary disease with (acute) exacerbation (principal); J96.00 Acute respiratory failure, unspecified whether with hypoxia or hypercapnia; I47.2 Ventricular tachycardia; I10 Essential (primary) hypertension; F10.239 Alcohol dependence with withdrawal, unspecified; B19.20 Unspecified viral hepatitis C without hepatic coma; E11.9 Type 2 diabetes mellitus without complications; F19.10 Other psychoactive substance abuse, uncomplicated; E78.5 Hyperlipidemia, unspecified; F17.200 Nicotine dependence, unspecified, uncomplicated; G40.909 Epilepsy, unspecified, not intractable, without status epilepticus; Z86.73 Personal history of transient ischemic attack (TIA), and cerebral infarction without residual deficits; Z91.19 Patient's noncompliance with other medical treatment and regimen; Z71.6 Tobacco abuse counseling; Z88.8 Allergy status to other drugs, medicaments and biological substances; Z79.82 Long term (current) use of aspirin; Z79.899 Other long term (current) drug therapy
CPT/HCPCS: 71020; 82805; 82962; 83735; 84100; 84146; 87040; 87070; 87081; 87205; 87804; 93005; 93306; 94640; 94644; 96365; 96375; 99285; G0480; J0696; J0712; J1650; J1956; J2060; J2270; J2920; J2930; J7040; J7050; J7060

== ENCOUNTER 2017-09-12 20:53 | Inpatient (IN) | payer OTHER ==
[~2017-09-12] VITALS: Ht 167.6 cm; Wt 63.8 kg
[~2017-09-12 20:53] MED LIST changes: -AMIT10TA6 PO; -AMLO-343 PO; -AMLO-512 PO; -FOLI1 PO; -IPRA4AER IH; +LACT30L PO; +METO25 PO; -MULT-1203 PO; +OMEP20 PO; -PRED20 PO; -THIA100 PO; -VIT1TABL95 PO
[2017-09-12 21:41] LABS: BASOPHILS % (AUTO) 1.9 % (0.0-2.0); EOSINOPHILS % (AUTO) 2.6 % (1.0-6.0); HEMATOCRIT 36.9 % (41-53); HEMOGLOBIN 12.4 g/dL (13.5-17.5); LYMPHOCYTES # (AUTO) 2.7 K/uL (1.0-4.8); MEAN CORPUSCULAR HEMOGLOBIN 29.4 pg (26.0-34.0); MEAN CORPUSCULAR HGB CONC 33.5 G/dL (31.0-37.0); MEAN CORPUSCULAR VOLUME 88 fL (80-100); MONOCYTES # (AUTO) 0.3 K/uL (0.1-1.0); MONOCYTES % (AUTO) 5.8 % (2.0-9.0); NEUTROPHILS # (AUTO) 1.4 K/uL (1.8-7.7); NEUTROPHILS % (AUTO) 30.7 % (40.0-70.0); RED CELL DISTRIBUTION WIDTH 17.8 % (11.5-14.5)
[2017-09-12 21:51] LABS: ANION GAP 13 mmol/L (8-16); CALCIUM, TOTAL 8.6 mg/dL (8.8-10.5); CARBON DIOXIDE 25 mmol/L (22-29); CHLORIDE 107 mmol/L (98-107); CREATININE 0.96 mg/dL (0.60-1.30); GLOMERULAR FILTR. RATE CALC > 60 mL/min (>60); GLUCOSE,RANDOM 105 mg/dL (70-110); POTASSIUM 3.2 mmol/L (3.5-5.1); SODIUM SERUM 145 mmol/L (136-145); UREA NITROGEN, BLOOD 12 mg/dL (7-18)
[2017-09-12 21:57] LABS: ALANINE AMINOTRANSFERASE 251 U/L (12-78); ALBUMIN 3.5 g/dL (3.4-5.0); ALKALINE PHOSPHATASE 178 U/L (46-116); ASPARTATE AMINOTRANSFERASE 391 U/L (15-37); BILIRUBIN,TOTAL 1.2 mg/dL (0.1-1.0); TOTAL PROTEIN, SERUM 8.7 g/dL (6.4-8.2)
[2017-09-12 22:18] LABS: PLATELET COUNT (AUTO) 91 K/uL (150-450); PLATELET MORPHOLOGY COMMENT GIANT PLTS PRESENT
[2017-09-12] MEDS ORDERED: LACTULOSE 20 GM/30 ML SOLUTION UDCUP PO ONE (23:45)
[2017-09-12 23:47] LABS: APPEARANCE,URINE CLEAR (CLEAR); BILIRUBIN,URINE NEGATIVE (NEGATIVE); GLUCOSE, URINE (UA) NEGATIVE (NEGATIVE); KETONES,URINE 15 mg/dL (NEGATIVE); LEUKOCYTE ESTERASE ,URINE NEGATIVE (NEGATIVE); NITRATE,URINE NEGATIVE (NEGATIVE); OCCULT BLOOD,URINE TRACE (NEGATIVE); PROTEIN,URINE POS 1+ (NEGATIVE)
[2017-09-12 23:49] LABS: AMPHET/METH SCREEN,URINE NEGATIVE (NEGATIVE); BARBITURATE SCREEN, URINE NEGATIVE (NEGATIVE); BENZODIAZEPINES SCREEN,URINE POSITIVE (NEGATIVE); CANNABINOID SCREEN,URINE NEGATIVE (NEGATIVE); COCAINE SCREEN,URINE NEGATIVE (NEGATIVE); METHADONE SCREEN, URINE NEGATIVE (NEGATIVE); OPIATE SCREEN,URINE NEGATIVE (NEGATIVE)
[2017-09-12 23:50] LABS: PHENCYCLIDINE SCREEN,URINE NEGATIVE (NEGATIVE)
[2017-09-12 23:58] LABS: BACTERIA,URINE Rare /HPF (None Seen); RBC,URINE 0-2 /HPF (0-2); WBC,URINE 0-2 /HPF (0-5)
[2017-09-13] MEDS ORDERED: LevETIRAcetam 500 MG TABLET PO ONE (02:15)
[2017-09-13] MEDS ORDERED: ACETAMINOPHEN 325 MG TABLET PO PRN ×2 (02:45→04:45)
[2017-09-13] MEDS ORDERED: 0.9% SODIUM CHLORIDE 10 ML SYRINGE IVP PRN (02:45)
[2017-09-13] MEDS ORDERED: ONDANSETRON HCL 4 MG/2 ML VIAL IVP PRN ×2 (02:45→04:45)
[2017-09-13 04:15] VITALS: BP 151/84
[2017-09-13] MEDS ORDERED: ALBUTEROL SULFATE 2.5 MG/0.5 ML NEB SOLUTION NEB PRN (04:45)
[2017-09-13] MEDS ORDERED: BISACODYL 10 MG RECTAL RECTAL SUPPOSITORY PR PRN (04:45)
[2017-09-13] MEDS ORDERED: IPRATROPIUM BROMIDE 0.5 MG/2.5 ML NEB SOLUTION NEB PRN (04:45)
[2017-09-13] MEDS ORDERED: MAGNESIUM HYDROXIDE SUSPENSION 30 ML UDCUP PO PRN (04:45)
[2017-09-13] MEDS ORDERED: POTASSIUM CHL 10 MEQ/WATER 50 ML IV PRN (05:30)
[2017-09-13] MEDS ORDERED: MAGNESIUM SULFATE 4 GM/WATER 100 ML IV PRN (05:30)
[2017-09-13] MEDS ORDERED: MAGNESIUM SULFATE 2 GM in DEXTROSE 5%-WATER 50 ML IV PRN (05:30)
[2017-09-13] MEDS: POTASSIUM CHLORIDE 20 MEQ ER TABLET PO PRN (05:45)
[2017-09-13 07:30] VITALS: BP 158/57
[2017-09-13] MEDS: HEPARIN SODIUM,PORCINE 5,000 UNITS/ML VIAL SQ SCH ×2 (08:58→20:28)
[2017-09-13] MEDS: BECLOMETHASONE DIPR HFA 40 MCG/PUFF 10.6 GM INHALER IH SCH ×2 (08:58→20:27)
[2017-09-13] MEDS: METOPROLOL TARTRATE 25 MG TABLET PO SCH ×2 (08:59→20:28)
[2017-09-13] MEDS: ASPIRIN 81 MG EC TABLET PO SCH (08:59)
[2017-09-13] MEDS: LevETIRAcetam 500 MG TABLET PO SCH ×3 (08:59→20:27)
[2017-09-13] MEDS: PANTOPRAZOLE SODIUM 40 MG DR TABLET PO SCH (08:59)
[2017-09-13] MEDS: LACTULOSE 20 GM/30 ML SOLUTION UDCUP PO SCH ×3 (09:00→20:27)
[2017-09-13 09:44] LABS: ALBUMIN 3.4 g/dL (3.4-5.0); MAGNESIUM 1.4 mg/dL (1.80-2.40)
[2017-09-13 11:13] VITALS: BP 151/90
[2017-09-13 16:01] VITALS: BP 152/98
[2017-09-13 19:55] VITALS: BP 128/92
[2017-09-13] MEDS: IBUPROFEN 600 MG TABLET PO PRN (20:28)
[2017-09-13] MEDS: MAGNESIUM OXIDE 400 MG TABLET PO PRN (22:28)
[2017-09-13 23:22] VITALS: BP 143/95
[2017-09-14] MEDS: ChlordiazePOXIDE HCL 25 MG CAPSULE PO SCH ×4 (00:51→23:19)
[2017-09-14 04:39] VITALS: BP 144/86
[2017-09-14] MEDS: MAGNESIUM OXIDE 400 MG TABLET PO PRN (06:33)
[2017-09-14 07:11] VITALS: BP 128/80
[2017-09-14 07:38] LABS: EOSINOPHILS % (AUTO) 4.1 % (1.0-6.0); HEMOGLOBIN 13.4 g/dL (13.5-17.5); LYMPHOCYTES # (AUTO) 1.7 K/uL (1.0-4.8); LYMPHOCYTES % (AUTO) 42.7 % (22.0-44.0); MEAN CORPUSCULAR HEMOGLOBIN 29.8 pg (26.0-34.0); MEAN CORPUSCULAR HGB CONC 34.4 G/dL (31.0-37.0); MEAN CORPUSCULAR VOLUME 87 fL (80-100); MONOCYTES # (AUTO) 0.5 K/uL (0.1-1.0); MONOCYTES % (AUTO) 12.3 % (2.0-9.0); NEUTROPHILS # (AUTO) 1.6 K/uL (1.8-7.7); NEUTROPHILS % (AUTO) 39.9 % (40.0-70.0); PLATELET COUNT (AUTO) 61 K/uL (150-450); RED BLOOD CELL COUNT(AUTO) 4.51 MIL/uL (4.50-5.90); RED CELL DISTRIBUTION WIDTH 18.1 % (11.5-14.5)
[2017-09-14 07:50] LABS: INR 1.1 (0.9-1.1); PROTHROMBIN TIME 11.3 SEC (9.4-11.6)
[2017-09-14 07:56] LABS: ALANINE AMINOTRANSFERASE 233 U/L (12-78); ALBUMIN 3.5 g/dL (3.4-5.0); ALKALINE PHOSPHATASE 196 U/L (46-116); ANION GAP 10 mmol/L (8-16); ASPARTATE AMINOTRANSFERASE 349 U/L (15-37); BILIRUBIN,TOTAL 2.6 mg/dL (0.1-1.0); CALCIUM, TOTAL 9.2 mg/dL (8.8-10.5); CARBON DIOXIDE 28 mmol/L (22-29); CHLORIDE 97 mmol/L (98-107); CHOL/HDL RATIO 2.2 (4.2-7.3); CHOLESTEROL 225 mg/dL (131-200); CREATININE 0.73 mg/dL (0.60-1.30); GLOMERULAR FILTR. RATE CALC > 60 mL/min (>60); GLUCOSE,RANDOM 81 mg/dL (70-110); HDL CHOLESTEROL 104 mg/dL (40-60); LDL CHOL (CALC.) 102 mg/dL (0-130); PHOSPHORUS 2.9 mg/dL (2.5-4.9); POTASSIUM 3.8 mmol/L (3.5-5.1); SODIUM SERUM 135 mmol/L (136-145); TRIGLYCERIDES 93 mg/dL (15-150); UREA NITROGEN, BLOOD 9 mg/dL (7-18)
[2017-09-14 08:19] LABS: HEMOGLOBIN A1C 6.2 % (4.5-6.2)
[2017-09-14 08:35] LABS: THYROID STIMULATING HORMONE 2.03 uIU/mL (0.36-3.74)
[2017-09-14] MEDS: BECLOMETHASONE DIPR HFA 40 MCG/PUFF 10.6 GM INHALER IH SCH ×3 (09:00→20:14)
[2017-09-14] MEDS: LevETIRAcetam 500 MG TABLET PO SCH ×3 (09:42→23:19)
[2017-09-14] MEDS: PANTOPRAZOLE SODIUM 40 MG DR TABLET PO SCH (09:42)
[2017-09-14] MEDS: METOPROLOL TARTRATE 25 MG TABLET PO SCH ×2 (09:42→20:19)
[2017-09-14] MEDS: ASPIRIN 81 MG EC TABLET PO SCH (09:43)
[2017-09-14] MEDS: LACTULOSE 20 GM/30 ML SOLUTION UDCUP PO SCH ×3 (09:43→23:19)
[2017-09-14 10:22] LABS: PLATELET MORPHOLOGY COMMENT GIANT PLTS PRESENT
[2017-09-14 11:07] VITALS: BP 156/93
[2017-09-14 14:56] VITALS: BP 134/89
[2017-09-14] MEDS ORDERED: IOVERSOL 350 MG/ML 100 ML VIAL ONE (17:14)
[2017-09-14] MEDS: IBUPROFEN 600 MG TABLET PO PRN (18:16)
[2017-09-14 19:28] VITALS: BP 130/88
[2017-09-14] MEDS: ZOLPIDEM TARTRATE 5 MG TABLET PO PRN (20:19)
[2017-09-14] MEDS ORDERED: SODIUM CHLORIDE 0.9% 100 ML ONE (21:57)
[2017-09-14 23:17] VITALS: BP 105/71
[2017-09-15 04:35] VITALS: BP 121/84
[2017-09-15 06:13] LABS: BASOPHILS % (AUTO) 1.3 % (0.0-2.0); HEMATOCRIT 36.3 % (41-53); HEMOGLOBIN 12.2 g/dL (13.5-17.5); LYMPHOCYTES # (AUTO) 1.4 K/uL (1.0-4.8); MEAN CORPUSCULAR HEMOGLOBIN 29.7 pg (26.0-34.0); MEAN CORPUSCULAR HGB CONC 33.7 G/dL (31.0-37.0); MEAN CORPUSCULAR VOLUME 88 fL (80-100); MONOCYTES # (AUTO) 0.6 K/uL (0.1-1.0); MONOCYTES % (AUTO) 14.9 % (2.0-9.0); NEUTROPHILS # (AUTO) 1.7 K/uL (1.8-7.7); NEUTROPHILS % (AUTO) 42.8 % (40.0-70.0); PLATELET COUNT (AUTO) 51 K/uL (150-450); RED BLOOD CELL COUNT(AUTO) 4.11 MIL/uL (4.50-5.90); RED CELL DISTRIBUTION WIDTH 18.5 % (11.5-14.5)
[2017-09-15 06:32] LABS: ANION GAP 4 mmol/L (8-16); CALCIUM, TOTAL 9.1 mg/dL (8.8-10.5); CARBON DIOXIDE 30 mmol/L (22-29); CHLORIDE 100 mmol/L (98-107); CREATININE 1.02 mg/dL (0.60-1.30); GLOMERULAR FILTR. RATE CALC > 60 mL/min (>60); GLUCOSE,RANDOM 99 mg/dL (70-110); POTASSIUM 3.3 mmol/L (3.5-5.1); SODIUM SERUM 134 mmol/L (136-145); UREA NITROGEN, BLOOD 10 mg/dL (7-18)
[2017-09-15 06:38] LABS: ALANINE AMINOTRANSFERASE 222 U/L (12-78); ALBUMIN 3.2 g/dL (3.4-5.0); ALKALINE PHOSPHATASE 185 U/L (46-116); ASPARTATE AMINOTRANSFERASE 352 U/L (15-37); BILIRUBIN,TOTAL 2.3 mg/dL (0.1-1.0); PLATELET MORPHOLOGY COMMENT GIANT PLTS PRESENT; TOTAL PROTEIN, SERUM 8.2 g/dL (6.4-8.2)
[2017-09-15 07:20] VITALS: BP 126/69
[2017-09-15] MEDS: LACTULOSE 20 GM/30 ML SOLUTION UDCUP PO SCH ×3 (08:19→20:31)
[2017-09-15] MEDS: LevETIRAcetam 500 MG TABLET PO SCH ×3 (08:19→20:31)
[2017-09-15] MEDS: ASPIRIN 81 MG EC TABLET PO SCH (08:20)
[2017-09-15] MEDS: PANTOPRAZOLE SODIUM 40 MG DR TABLET PO SCH (08:20)
[2017-09-15] MEDS: MULTIVITAMINS, THERAPEUTIC TABLET PO SCH (08:20)
[2017-09-15] MEDS: METOPROLOL TARTRATE 25 MG TABLET PO SCH ×2 (08:20→20:32)
[2017-09-15] MEDS: POTASSIUM CHLORIDE 20 MEQ ER TABLET PO PRN (08:22)
[2017-09-15] MEDS: BECLOMETHASONE DIPR HFA 40 MCG/PUFF 10.6 GM INHALER IH SCH ×2 (08:23→20:33)
[2017-09-15 11:11] VITALS: BP 117/77
[2017-09-15 15:05] VITALS: BP 125/72
[2017-09-15 19:53] VITALS: BP 110/76
[2017-09-15] MEDS: ZOLPIDEM TARTRATE 5 MG TABLET PO PRN (20:33)
[2017-09-15] MEDS ORDERED: MIRTAZAPINE 15 MG TABLET PO SCH (21:00)
[2017-09-15] MEDS: IBUPROFEN 600 MG TABLET PO PRN (21:53)
[2017-09-15 23:51] VITALS: BP 126/70
[2017-09-16 04:57] VITALS: BP 126/79
[2017-09-16 06:24] LABS: BASOPHILS % (AUTO) 0.4 % (0.0-2.0); HEMATOCRIT 35.2 % (41-53); HEMOGLOBIN 11.7 g/dL (13.5-17.5); LYMPHOCYTES # (AUTO) 2.2 K/uL (1.0-4.8); LYMPHOCYTES % (AUTO) 42.6 % (22.0-44.0); MEAN CORPUSCULAR HEMOGLOBIN 29.6 pg (26.0-34.0); MEAN CORPUSCULAR HGB CONC 33.4 G/dL (31.0-37.0); MEAN CORPUSCULAR VOLUME 89 fL (80-100); MONOCYTES # (AUTO) 0.7 K/uL (0.1-1.0); MONOCYTES % (AUTO) 13.5 % (2.0-9.0); NEUTROPHILS % (AUTO) 38.5 % (40.0-70.0); RED BLOOD CELL COUNT(AUTO) 3.96 MIL/uL (4.50-5.90); RED CELL DISTRIBUTION WIDTH 18.7 % (11.5-14.5)
[2017-09-16 06:51] LABS: ALANINE AMINOTRANSFERASE 210 U/L (12-78); ALBUMIN 3.2 g/dL (3.4-5.0); ALKALINE PHOSPHATASE 176 U/L (46-116); ANION GAP 6 mmol/L (8-16); ASPARTATE AMINOTRANSFERASE 292 U/L (15-37); BILIRUBIN,TOTAL 1.8 mg/dL (0.1-1.0); CALCIUM, TOTAL 9.6 mg/dL (8.8-10.5); CARBON DIOXIDE 26 mmol/L (22-29); CHLORIDE 104 mmol/L (98-107); CREATININE 0.89 mg/dL (0.60-1.30); GLOMERULAR FILTR. RATE CALC > 60 mL/min (>60); GLUCOSE,RANDOM 98 mg/dL (70-110); POTASSIUM 4.7 mmol/L (3.5-5.1); SODIUM SERUM 136 mmol/L (136-145); TOTAL PROTEIN, SERUM 8.1 g/dL (6.4-8.2); UREA NITROGEN, BLOOD 16 mg/dL (7-18)
[2017-09-16] MEDS: LACTULOSE 20 GM/30 ML SOLUTION UDCUP PO SCH (07:56)
[2017-09-16] MEDS: MULTIVITAMINS, THERAPEUTIC TABLET PO SCH (07:56)
[2017-09-16] MEDS: ASPIRIN 81 MG EC TABLET PO SCH (07:57)
[2017-09-16] MEDS: METOPROLOL TARTRATE 25 MG TABLET PO SCH (07:57)
[2017-09-16] MEDS: LevETIRAcetam 500 MG TABLET PO SCH (07:57)
[2017-09-16] MEDS: PANTOPRAZOLE SODIUM 40 MG DR TABLET PO SCH (07:57)
[2017-09-16] MEDS: BECLOMETHASONE DIPR HFA 40 MCG/PUFF 10.6 GM INHALER IH SCH (08:03)
[2017-09-16 08:08] LABS: PLATELET COUNT (AUTO) 44 K/uL (150-450)
[2017-09-16 08:09] LABS: PLATELET MORPHOLOGY COMMENT GIANT PLTS PRESENT
[2017-09-16 08:35] VITALS: BP 102/66
[2017-09-16 12:21] VITALS: BP 112/71
[2017-09-16] MEDS ORDERED: LACT30L PO (15:04)
[2017-09-16] MEDS ORDERED: MIRT15 PO (15:04)
== END 2017-09-16 15:40 | disposition home or self-care (01) | DRG 279 ==
LOC: EMS 20:55 → 5N 09-13 02:30
PROVIDERS: ADMIT Internal Medicine; ATTEND Internal Medicine
DX: K72.90 Hepatic failure, unspecified without coma (principal); R45.851 Suicidal ideations; D69.6 Thrombocytopenia, unspecified; F33.2 Major depressive disorder, recurrent severe without psychotic features; J44.1 Chronic obstructive pulmonary disease with (acute) exacerbation; I10 Essential (primary) hypertension; E11.9 Type 2 diabetes mellitus without complications; D64.9 Anemia, unspecified; F25.9 Schizoaffective disorder, unspecified; E78.00 Pure hypercholesterolemia, unspecified; Z99.81 Dependence on supplemental oxygen; F10.229 Alcohol dependence with intoxication, unspecified; G40.909 Epilepsy, unspecified, not intractable, without status epilepticus; B18.2 Chronic viral hepatitis C; E87.6 Hypokalemia; F17.200 Nicotine dependence, unspecified, uncomplicated; E78.5 Hyperlipidemia, unspecified; K21.9 Gastro-esophageal reflux disease without esophagitis; Z91.19 Patient's noncompliance with other medical treatment and regimen; Z88.5 Allergy status to narcotic agent; Z79.82 Long term (current) use of aspirin; Z79.899 Other long term (current) drug therapy; Z91.5 Personal history of self-harm; Z86.73 Personal history of transient ischemic attack (TIA), and cerebral infarction without residual deficits; Z71.6 Tobacco abuse counseling; Z71.41 Alcohol abuse counseling and surveillance of alcoholic
CPT/HCPCS: 71260; 82306; 83036; 83735; 84100; 84132; 84443; 93005; 97116; 97162; 97535; 99285; G0480; G0482; J1644; J2405; J3475; J3535; J7050; J7060

== ENCOUNTER 2018-10-15 03:17 | Emergency (ER) | payer OTHER ==
[~2018-10-15] VITALS: Ht 165.1 cm; Wt 56.3 kg
[~2018-10-15 03:17] MED LIST changes: -LEVE500T53 PO; +MIRT15 PO
[2018-10-15 03:49] LABS: GLUCOSE,POINT OF CARE 120 MG/DL (70-110)
[2018-10-15] MEDS ORDERED: KETOROLAC TROMETHAMINE 60 MG/2 ML VIAL IM ONE (04:15)
[2018-10-15 04:17] LABS: BASOPHILS % (AUTO) 0.6 % (0.0-2.0); EOSINOPHILS % (AUTO) 0 % (1.0-6.0); HEMATOCRIT 36.7 % (41-53); HEMOGLOBIN 12.1 g/dL (13.5-17.5); LYMPHOCYTES # (AUTO) 2.1 K/uL (1.0-4.8); LYMPHOCYTES % (AUTO) 33.4 % (22.0-44.0); MEAN CORPUSCULAR HEMOGLOBIN 29.9 pg (26.0-34.0); MEAN CORPUSCULAR HGB CONC 32.9 G/dL (31.0-37.0); MEAN CORPUSCULAR VOLUME 91 fL (80-100); MONOCYTES # (AUTO) 0.5 K/uL (0.1-1.0); MONOCYTES % (AUTO) 7.4 % (2.0-9.0); NEUTROPHILS # (AUTO) 3.6 K/uL (1.8-7.7); NEUTROPHILS % (AUTO) 58.6 % (40.0-70.0); PLATELET COUNT (AUTO) 101 K/uL (150-450); RED BLOOD CELL COUNT(AUTO) 4.04 MIL/uL (4.50-5.90); RED CELL DISTRIBUTION WIDTH 16.3 % (11.5-14.5)
[2018-10-15 04:34] LABS: ANION GAP 15 mmol/L (8-16); CALCIUM, TOTAL 8.8 mg/dL (8.8-10.5); CARBON DIOXIDE 21 mmol/L (22-29); CHLORIDE 107 mmol/L (98-107); CREATININE 0.86 mg/dL (0.60-1.30); GLOMERULAR FILTR. RATE CALC > 60 mL/min (>60); GLUCOSE,RANDOM 121 mg/dL (70-110); POTASSIUM 3.9 mmol/L (3.5-5.1); SODIUM SERUM 143 mmol/L (136-145); UREA NITROGEN, BLOOD 18 mg/dL (7-18)
[2018-10-15 04:41] LABS: ALANINE AMINOTRANSFERASE 110 U/L (12-78); ALKALINE PHOSPHATASE 139 U/L (46-116); ASPARTATE AMINOTRANSFERASE 153 U/L (15-37); BILIRUBIN,TOTAL 1.5 mg/dL (0.1-1.0); TOTAL PROTEIN, SERUM 9.1 g/dL (6.4-8.2)
[2018-10-15 08:07] LABS: AMPHET/METH SCREEN,URINE NEGATIVE (NEGATIVE); BARBITURATE SCREEN, URINE NEGATIVE (NEGATIVE); BENZODIAZEPINES SCREEN,URINE NEGATIVE (NEGATIVE); CANNABINOID SCREEN,URINE NEGATIVE (NEGATIVE); COCAINE SCREEN,URINE NEGATIVE (NEGATIVE); METHADONE SCREEN, URINE NEGATIVE (NEGATIVE); OPIATE SCREEN,URINE NEGATIVE (NEGATIVE)
[2018-10-15 08:08] VITALS: BP 117/70
[2018-10-15 08:10] LABS: PHENCYCLIDINE SCREEN,URINE NEGATIVE (NEGATIVE)
[2018-10-15 08:15] LABS: APPEARANCE,URINE CLEAR (CLEAR); BILIRUBIN,URINE NEGATIVE (NEGATIVE); GLUCOSE, URINE (UA) NEGATIVE (NEGATIVE); KETONES,URINE NEGATIVE (NEGATIVE); LEUKOCYTE ESTERASE ,URINE NEGATIVE (NEGATIVE); NITRATE,URINE NEGATIVE (NEGATIVE); OCCULT BLOOD,URINE NEGATIVE (NEGATIVE); PROTEIN,URINE TRACE (NEGATIVE)
[2018-10-15 08:26] LABS: BACTERIA,URINE None Seen /HPF (None Seen); RBC,URINE None Seen /HPF (0-2); SQUAMOUS EPITHELIAL CELL,UR Rare /LPF (None Seen); WBC,URINE None Seen /HPF (0-5)
== END 2018-10-15 08:55 | disposition home or self-care (01) ==
LOC: EMS 03:17
DX: F10.129 Alcohol abuse with intoxication, unspecified (principal); E11.9 Type 2 diabetes mellitus without complications; J44.9 Chronic obstructive pulmonary disease, unspecified; E78.00 Pure hypercholesterolemia, unspecified; I10 Essential (primary) hypertension; Z79.82 Long term (current) use of aspirin; Z79.899 Other long term (current) drug therapy; Y90.8 Blood alcohol level of 240 mg/100 ml or more
CPT/HCPCS: 36415; 71045; 74018; 80053; 80307; 81001; 82962; 85025; 96372; 99284; G0480; J1885

== ENCOUNTER 2019-06-09 19:13 | Inpatient (IN) | payer OTHER ==
[~2019-06-09] VITALS: Ht 165.1 cm; Wt 58.7 kg
[~2019-06-09 19:13] MED LIST changes: -ASPI-556 PO; +MIRT-92 PO; -MIRT15 PO
[2019-06-09] MEDS ORDERED: ALBUTEROL SULFATE 5 MG/ML 20 ML NEB SOLN [BULK] NEB ONE (19:30)
[2019-06-09] MEDS ORDERED: 0.9% SODIUM CHLORIDE 10 ML SYRINGE IVP PRN (19:30)
[2019-06-09] MEDS ORDERED: IPRATROPIUM BROMIDE 0.5 MG/2.5 ML NEB SOLUTION NEB ONE (19:30)
[2019-06-09 20:16] LABS: BASOPHILS % (AUTO) 1.8 % (0.0-2.0); EOSINOPHILS % (AUTO) 7.3 % (1.0-6.0); HEMATOCRIT 32.5 % (41-53); HEMOGLOBIN 10.5 g/dL (13.5-17.5); LYMPHOCYTES # (AUTO) 3.3 K/uL (1.0-4.8); LYMPHOCYTES % (AUTO) 43.9 % (22.0-44.0); MEAN CORPUSCULAR HEMOGLOBIN 29.8 pg (26.0-34.0); MEAN CORPUSCULAR HGB CONC 32.3 G/dL (31.0-37.0); MEAN CORPUSCULAR VOLUME 92 fL (80-100); MONOCYTES # (AUTO) 0.7 K/uL (0.1-1.0); MONOCYTES % (AUTO) 9.4 % (2.0-9.0); NEUTROPHILS # (AUTO) 2.9 K/uL (1.8-7.7); NEUTROPHILS % (AUTO) 37.6 % (40.0-70.0); PLATELET COUNT (AUTO) 165 K/uL (150-450); RED BLOOD CELL COUNT(AUTO) 3.53 MIL/uL (4.50-5.90); RED CELL DISTRIBUTION WIDTH 18.9 % (11.5-14.5)
[2019-06-09 20:28] LABS: ANION GAP 5 mmol/L (8-16); CALCIUM, TOTAL 8.6 mg/dL (8.8-10.5); CARBON DIOXIDE 30 mmol/L (22-29); CHLORIDE 104 mmol/L (98-107); CREATININE 0.95 mg/dL (0.60-1.30); GLOMERULAR FILTR. RATE CALC > 60 mL/min (>60); GLUCOSE,RANDOM 142 mg/dL (70-110); POTASSIUM 3.3 mmol/L (3.5-5.1); SODIUM SERUM 139 mmol/L (136-145); UREA NITROGEN, BLOOD 12 mg/dL (7-18)
[2019-06-09] MEDS ORDERED: AZITHROMYCIN 500 MG/NS 250 ML IV ONE (20:30)
[2019-06-09] MEDS ORDERED: ALBUTEROL SULFATE 2.5 MG/0.5 ML NEB SOLUTION NEB PRN (20:30)
[2019-06-09] MEDS ORDERED: IPRATROPIUM BROMIDE 0.5 MG/2.5 ML NEB SOLUTION NEB PRN (20:30)
[2019-06-09] MEDS ORDERED: ACETAMINOPHEN 325 MG TABLET PO PRN (20:30)
[2019-06-09] MEDS ORDERED: CefTRIAXone 1 GM/DEXTROSE 50 ML IV ONE (20:30)
[2019-06-09] MEDS ORDERED: MAGNESIUM HYDROXIDE SUSPENSION 30 ML UDCUP PO PRN (20:30)
[2019-06-09 20:32] LABS: INR 1.5 (0.9-1.1)
[2019-06-09] MEDS ORDERED: BECL10.62 IH (20:35)
[2019-06-09 20:36] LABS: LACTIC ACID 1.5 mmol/L (0.4-2.0)
[2019-06-09 20:44] LABS: B-TYPE NATRIURETIC PEPTIDE 145 pg/mL (0-100)
[2019-06-09 20:44] LABS: INFLUENZA TYPE A NEGATIVE FOR TYPE A (NEGATIVE); INFLUENZA TYPE B NEGATIVE FOR TYPE B (NEGATIVE)
[2019-06-09] MEDS ORDERED: DEXTROSE 50%-WATER 25 GM/50 ML SYRINGE IVP PRN (20:45)
[2019-06-09] MEDS ORDERED: POTASSIUM CHL 10 MEQ/WATER 50 ML IV PRN (20:45)
[2019-06-09 20:53] LABS: ALANINE AMINOTRANSFERASE 97 U/L (12-78); ALBUMIN 2.2 g/dL (3.4-5.0); ALKALINE PHOSPHATASE 134 U/L (46-116); ASPARTATE AMINOTRANSFERASE 224 U/L (15-37); BILIRUBIN,TOTAL 1.3 mg/dL (0.1-1.0); CREATINE KINASE, TOTAL ONLY 113 U/L (39-308); TOTAL PROTEIN, SERUM 9.2 g/dL (6.4-8.2)
[2019-06-09] MEDS: DOCUSATE SODIUM 100 MG CAPSULE PO SCH (21:00)
[2019-06-09] MEDS: MONTELUKAST SODIUM 10 MG TABLET PO SCH (21:04)
[2019-06-09 21:14] LABS: APPEARANCE,URINE CLEAR (CLEAR); BILIRUBIN,URINE PRELIM. POSITIVE (NEGATIVE); GLUCOSE, URINE (UA) NEGATIVE (NEGATIVE); KETONES,URINE NEGATIVE (NEGATIVE); LEUKOCYTE ESTERASE ,URINE NEGATIVE (NEGATIVE); NITRATE,URINE NEGATIVE (NEGATIVE); OCCULT BLOOD,URINE NEGATIVE (NEGATIVE); PH,URINE 6.5 (5.0-8.0); PROTEIN,URINE NEGATIVE (NEGATIVE)
[2019-06-09] MEDS: POTASSIUM CHLORIDE 20 MEQ ER TABLET PO PRN ×2 (21:51→21:54)
[2019-06-09 22:38] LABS: GLUCOSE,POINT OF CARE 148 MG/DL (70-110)
[2019-06-09 23:52] VITALS: BP 102/88
[2019-06-10] MEDS: HEPARIN SODIUM,PORCINE 5,000 UNITS/ML VIAL SQ SCH ×3 (00:10→16:00)
[2019-06-10] MEDS: MethylPREDNISolone SOD SUCC 125 MG/2 ML VIAL IVP SCH ×4 (00:10→18:19)
[2019-06-10 05:40] VITALS: BP 119/65
[2019-06-10] MEDS: INSULIN LISPRO 100 UNITS/ML SQ PRN ×4 (05:51→22:05)
[2019-06-10 07:28] VITALS: BP 112/69
[2019-06-10 07:39] LABS: GLUCOMETER DEV NAME(LOC) 5S.1; GLUCOSE,POINT OF CARE 185 MG/DL (70-110)
[2019-06-10] MEDS: DOCUSATE SODIUM 100 MG CAPSULE PO SCH ×2 (08:55→20:09)
[2019-06-10] MEDS: FAMOTIDINE 20 MG TABLET PO SCH (08:55)
[2019-06-10] MEDS: ASPIRIN 81 MG CHEWABLE TABLET PO SCH (08:55)
[2019-06-10] MEDS: ATORVASTATIN CALCIUM 20 MG TABLET PO SCH (08:55)
[2019-06-10] MEDS: MULTIVITAMINS WITH MINERALS, THERAPEUTIC TABLET PO SCH (08:55)
[2019-06-10] MEDS: ALBUTEROL SULFATE 2.5 MG/0.5 ML NEB SOLUTION NEB PRN (11:48)
[2019-06-10] MEDS: IPRATROPIUM BROMIDE 0.5 MG/2.5 ML NEB SOLUTION NEB PRN (11:48)
[2019-06-10 11:51] VITALS: BP 128/84
[2019-06-10 15:25] VITALS: BP 147/67
[2019-06-10 19:53] VITALS: BP 154/85
[2019-06-10] MEDS: MONTELUKAST SODIUM 10 MG TABLET PO SCH (20:08)
[2019-06-10] MEDS ORDERED: SODIUM CHLORIDE 0.9% 250 ML IV ONE (20:33)
[2019-06-10] MEDS ORDERED: CefTRIAXone 1 GM/DEXTROSE 50 ML IV SCH (21:00)
[2019-06-10 21:58] LABS: GLUCOMETER DEV NAME(LOC) 5S.1; GLUCOSE,POINT OF CARE 267 MG/DL (70-110)
[2019-06-10 21:58] LABS: GLUCOMETER DEV NAME(LOC) 5S.1; GLUCOSE,POINT OF CARE 196 MG/DL (70-110)
[2019-06-10] MEDS ORDERED: AZITHROMYCIN 500 MG/NS 250 ML IV SCH (22:00)
[2019-06-10] MEDS ORDERED: TEMAZEPAM 7.5 MG CAPSULE PO PRN (22:15)
[2019-06-10 22:19] LABS: GLUCOMETER DEV NAME(LOC) 5S.1; GLUCOSE,POINT OF CARE 215 MG/DL (70-110)
[2019-06-11 00:03] VITALS: BP 147/85
[2019-06-11 04:56] VITALS: BP 138/78
[2019-06-11] MEDS: MethylPREDNISolone SOD SUCC 125 MG/2 ML VIAL IVP SCH ×4 (06:00→12:00)
[2019-06-11] MEDS: INSULIN LISPRO 100 UNITS/ML SQ PRN ×2 (06:15→12:40)
[2019-06-11 06:56] LABS: BASOPHILS % (AUTO) 0.1 % (0.0-2.0); EOSINOPHILS % (AUTO) 0 % (1.0-6.0); HEMATOCRIT 35.6 % (41-53); HEMOGLOBIN 11.9 g/dL (13.5-17.5); LYMPHOCYTES # (AUTO) 1.1 K/uL (1.0-4.8); LYMPHOCYTES % (AUTO) 13.2 % (22.0-44.0); MEAN CORPUSCULAR HEMOGLOBIN 30.4 pg (26.0-34.0); MEAN CORPUSCULAR HGB CONC 33.5 G/dL (31.0-37.0); MEAN CORPUSCULAR VOLUME 91 fL (80-100); MONOCYTES # (AUTO) 0.5 K/uL (0.1-1.0); MONOCYTES % (AUTO) 6.2 % (2.0-9.0); NEUTROPHILS % (AUTO) 80.5 % (40.0-70.0); PLATELET COUNT (AUTO) 145 K/uL (150-450); RED BLOOD CELL COUNT(AUTO) 3.93 MIL/uL (4.50-5.90); RED CELL DISTRIBUTION WIDTH 18.5 % (11.5-14.5)
[2019-06-11 07:16] LABS: ALANINE AMINOTRANSFERASE 80 U/L (12-78); ALBUMIN 2.2 g/dL (3.4-5.0); ALKALINE PHOSPHATASE 120 U/L (46-116); ANION GAP 9 mmol/L (8-16); ASPARTATE AMINOTRANSFERASE 141 U/L (15-37); BILIRUBIN,TOTAL 1.6 mg/dL (0.1-1.0); CALCIUM, TOTAL 9.1 mg/dL (8.8-10.5); CARBON DIOXIDE 27 mmol/L (22-29); CHLORIDE 97 mmol/L (98-107); CREATININE 0.86 mg/dL (0.60-1.30); GLOMERULAR FILTR. RATE CALC > 60 mL/min (>60); GLUCOSE,RANDOM 213 mg/dL (70-110); POTASSIUM 3.3 mmol/L (3.5-5.1); SODIUM SERUM 133 mmol/L (136-145); TOTAL PROTEIN, SERUM 9.3 g/dL (6.4-8.2); UREA NITROGEN, BLOOD 14 mg/dL (7-18)
[2019-06-11 07:42] VITALS: BP 151/78
[2019-06-11] MEDS: HEPARIN SODIUM,PORCINE 5,000 UNITS/ML VIAL SQ SCH ×2 (08:00)
[2019-06-11 08:38] LABS: GLUCOMETER DEV NAME(LOC) 5N.1; GLUCOSE,POINT OF CARE 220 MG/DL (70-110)
[2019-06-11] MEDS: ASPIRIN 81 MG CHEWABLE TABLET PO SCH (11:08)
[2019-06-11] MEDS: DOCUSATE SODIUM 100 MG CAPSULE PO SCH (11:09)
[2019-06-11] MEDS: POTASSIUM CHLORIDE 20 MEQ ER TABLET PO PRN (11:10)
[2019-06-11] MEDS: FAMOTIDINE 20 MG TABLET PO SCH (11:17)
[2019-06-11] MEDS: MULTIVITAMINS WITH MINERALS, THERAPEUTIC TABLET PO SCH (11:17)
[2019-06-11] MEDS: ATORVASTATIN CALCIUM 20 MG TABLET PO SCH (11:18)
[2019-06-11] MEDS: ALBUTEROL SULFATE 2.5 MG/0.5 ML NEB SOLUTION NEB PRN (11:52)
[2019-06-11] MEDS: IPRATROPIUM BROMIDE 0.5 MG/2.5 ML NEB SOLUTION NEB PRN (11:52)
[2019-06-11] MEDS ORDERED: PRED5 PO (11:53)
[2019-06-11] MEDS ORDERED: AZIT200S36 PO (11:57)
[2019-06-11 11:59] VITALS: BP 141/79
[2019-06-11 12:40] LABS: GLUCOMETER DEV NAME(LOC) 5N.1; GLUCOSE,POINT OF CARE 172 MG/DL (70-110)
== END 2019-06-11 15:30 | disposition home health service (06) | DRG 140 ==
LOC: EMS 19:13 → 5N 22:30
PROVIDERS: ADMIT Internal Medicine; ATTEND Internal Medicine
PROC: 5A09357 Assistance with Respiratory Ventilation, Less than 24 Consecutive Hours, Continuous Positive Airway Pressure (ICD-10-PCS; principal; 2019-06-09)
DX: J44.1 Chronic obstructive pulmonary disease with (acute) exacerbation (principal); J96.01 Acute respiratory failure with hypoxia; J18.9 Pneumonia, unspecified organism; E44.0 Moderate protein-calorie malnutrition; K70.9 Alcoholic liver disease, unspecified; J44.0 Chronic obstructive pulmonary disease with (acute) lower respiratory infection; F20.9 Schizophrenia, unspecified; F10.20 Alcohol dependence, uncomplicated; J20.9 Acute bronchitis, unspecified; E11.9 Type 2 diabetes mellitus without complications; E78.5 Hyperlipidemia, unspecified; B19.20 Unspecified viral hepatitis C without hepatic coma; E78.00 Pure hypercholesterolemia, unspecified; I10 Essential (primary) hypertension; F17.210 Nicotine dependence, cigarettes, uncomplicated; Z91.19 Patient's noncompliance with other medical treatment and regimen; Z86.73 Personal history of transient ischemic attack (TIA), and cerebral infarction without residual deficits; Z88.5 Allergy status to narcotic agent; Z79.899 Other long term (current) drug therapy; Z71.6 Tobacco abuse counseling; Z68.21 Body mass index [BMI] 21.0-21.9, adult
CPT/HCPCS: 71250; 83605; 84132; 84145; 87040; 87081; 87804; 93005; 93306; 94640; 94644; 94660; 97116; 97163; 97166; 97530; 97535; 99291; J0456; J0696; J1644; J2930; J7050

== ENCOUNTER 2019-06-25 11:02 | Inpatient (IN) | payer OTHER ==
[~2019-06-25] VITALS: Ht 170.2 cm; Wt 67.7 kg
[~2019-06-25 11:02] MED LIST changes: +AZIT200S36 PO; +BECL10.62 IH; -BECL8.7A7 IH; -LACT30L PO; -METO25 PO; -MIRT-92 PO; +PRED5 PO
[2019-06-25] MEDS ORDERED: MethylPREDNISolone SOD SUCC 125 MG/2 ML VIAL ONE (11:18)
[2019-06-25] MEDS ORDERED: ALBUTEROL SULFATE HFA 90 MCG/PUFF 8 GM INHALER IH ONE ×2 (11:19→11:30)
[2019-06-25] MEDS ORDERED: MethylPREDNISolone SOD SUCC 125 MG/2 ML VIAL IVP ONE ×2 (11:30→17:00)
[2019-06-25 12:18] LABS: ABG A-A DIFF O2 350.1 mmHg (10-20.0); ABG BASE EXCESS -1.5 mmol/L (-2.0-3.0); ABG CARBOXYHEMOGLOBIN 0.3 % (0.0-1.5); ABG HCO3 23.2 mmol/L (22.0-26.0); ABG METHEMOGLOBIN 0.4 % (0.0-1.5); ABG OXYGEN CONTENT 15.7 mL/dL (15.0-23.0); ABG OXYGEN SATURATION 99.7 % (95.0-98.0); ABG PCO2 44 mmHg (35-45); ABG PH 7.358 (7.35-7.450); ABG TOTAL HEMOGLOBIN 10.7 G/dL (12.0-18.0); PO2, ARTERIAL BG 320.7 mmHg (79.0-87.0); SOURCE, BLOOD GAS ARTERIAL; TEMPERATURE, FAHRENHEIT, BG 97.5 FAHREN (96.0-98.6)
[2019-06-25 12:27] LABS: INFLUENZA TYPE A NEGATIVE FOR TYPE A (NEGATIVE); INFLUENZA TYPE B NEGATIVE FOR TYPE B (NEGATIVE)
[2019-06-25 13:42] LABS: SITE, BLOOD GAS LFT RADIAL
[2019-06-25 13:43] LABS: O2 DEVICE,BLOOD GAS NON REBREATHER (ROOM AIR)
[2019-06-25] MEDS ORDERED: MORPHINE SULFATE 2 MG/ML SYRINGE IVP ONE ×2 (14:00→17:00)
[2019-06-25] MEDS ORDERED: ALBUTEROL SULFATE 2.5 MG/0.5 ML NEB SOLUTION NEB ONE (17:00)
[2019-06-25] MEDS ORDERED: PIPERACILLIN/TAZO 3.375 GM/D5W 50 ML IV ONE (17:00)
[2019-06-25] MEDS ORDERED: ONDANSETRON HCL 4 MG/2 ML VIAL IVP ONE (17:00)
[2019-06-25] MEDS ORDERED: IPRATROPIUM BROMIDE 0.5 MG/2.5 ML NEB SOLUTION NEB ONE (17:00)
[2019-06-25] MEDS ORDERED: ETOMIDATE 2 MG/ML 10 ML VIAL IV ONE (17:04)
[2019-06-25 17:41] LABS: EOSINOPHILS % (AUTO) 0.2 % (1.0-6.0); HEMATOCRIT 32.5 % (41-53); HEMOGLOBIN 10.6 g/dL (13.5-17.5); LYMPHOCYTES # (AUTO) 0.5 K/uL (1.0-4.8); LYMPHOCYTES % (AUTO) 18.6 % (22.0-44.0); MEAN CORPUSCULAR HEMOGLOBIN 29.5 pg (26.0-34.0); MEAN CORPUSCULAR HGB CONC 32.7 G/dL (31.0-37.0); MEAN CORPUSCULAR VOLUME 90 fL (80-100); MONOCYTES % (AUTO) 1.4 % (2.0-9.0); NEUTROPHILS # (AUTO) 2.2 K/uL (1.8-7.7); NEUTROPHILS % (AUTO) 77.8 % (40.0-70.0); RED CELL DISTRIBUTION WIDTH 18.4 % (11.5-14.5)
[2019-06-25 17:43] LABS: APPEARANCE,URINE CLEAR (CLEAR); BILIRUBIN,URINE NEGATIVE (NEGATIVE); GLUCOSE, URINE (UA) NEGATIVE (NEGATIVE); KETONES,URINE NEGATIVE (NEGATIVE); LEUKOCYTE ESTERASE ,URINE NEGATIVE (NEGATIVE); NITRATE,URINE NEGATIVE (NEGATIVE); OCCULT BLOOD,URINE NEGATIVE (NEGATIVE); PH,URINE 6.5 (5.0-8.0)
[2019-06-25 17:44] LABS: PROTEIN,URINE NEGATIVE (NEGATIVE)
[2019-06-25 17:51] LABS: ANION GAP 11 mmol/L (8-16); CALCIUM, TOTAL 8.5 mg/dL (8.8-10.5); CARBON DIOXIDE 23 mmol/L (22-29); CHLORIDE 105 mmol/L (98-107); CREATININE 0.82 mg/dL (0.60-1.30); GLOMERULAR FILTR. RATE CALC > 60 mL/min (>60); GLUCOSE,RANDOM 118 mg/dL (70-110); POTASSIUM 3.8 mmol/L (3.5-5.1); SODIUM SERUM 139 mmol/L (136-145); UREA NITROGEN, BLOOD 12 mg/dL (7-18)
[2019-06-25 17:58] LABS: ALANINE AMINOTRANSFERASE 115 U/L (12-78); ALBUMIN 2.6 g/dL (3.4-5.0); ALKALINE PHOSPHATASE 144 U/L (46-116); ASPARTATE AMINOTRANSFERASE 228 U/L (15-37); BILIRUBIN,TOTAL 3.1 mg/dL (0.1-1.0); LIPASE 181 U/L (73-393); TOTAL PROTEIN, SERUM 8.9 g/dL (6.4-8.2)
[2019-06-25 18:18] LABS: PLATELET COUNT (AUTO) 67 K/uL (150-450)
[2019-06-25 18:20] LABS: B-TYPE NATRIURETIC PEPTIDE 112 pg/mL (0-100)
[2019-06-25] MEDS ORDERED: PROPOFOL 1000 MG/ISO-OSM 0 ML IV ONE (18:29)
[2019-06-25] MEDS ORDERED: ACETAMINOPHEN 325 MG TABLET PO PRN (18:30)
[2019-06-25] MEDS ORDERED: 0.9% SODIUM CHLORIDE 10 ML SYRINGE IVP PRN (18:30)
[2019-06-25] MEDS ORDERED: ONDANSETRON HCL 4 MG/2 ML VIAL IVP PRN ×2 (18:30→21:45)
[2019-06-25] MEDS ORDERED: IPRATROPIUM BROMIDE 0.5 MG/2.5 ML NEB SOLUTION NEB SCH (19:00)
[2019-06-25] MEDS ORDERED: ALBUTEROL SULFATE 2.5 MG/0.5 ML NEB SOLUTION NEB SCH (19:00)
[2019-06-25] MEDS ORDERED: OXYGEN THERAPY IH SCH (20:00)
[2019-06-25] MEDS ORDERED: MAGNESIUM SULFATE 2 GM, MVI, ADULT NO.1 WITH VIT K 10 ML, THIAMINE HCL 100 MG, FOLIC AC... IV ONE ×5 (20:45)
[2019-06-25] MEDS ORDERED: MAGNESIUM HYDROXIDE SUSPENSION 30 ML UDCUP PO PRN (21:45)
[2019-06-25] MEDS ORDERED: ZOLPIDEM TARTRATE 5 MG TABLET PO PRN (21:45)
[2019-06-25] MEDS ORDERED: BISACODYL 10 MG RECTAL RECTAL SUPPOSITORY PR PRN (21:45)
[2019-06-25] MEDS ORDERED: 0.9% SODIUM CHLORIDE 5 ML NEB SOLUTION NEB ONE (23:00)
[2019-06-25] MEDS: ALBUTEROL SULFATE 2.5 MG/0.5 ML NEB SOLUTION NEB PRN (23:05)
[2019-06-25] MEDS: HEPARIN SODIUM,PORCINE 5,000 UNITS/ML VIAL SQ SCH (23:22)
[2019-06-26] MEDS ORDERED: 0.9% SODIUM CHLORIDE 5 ML NEB SOLUTION NEB ONE (05:45)
[2019-06-26] MEDS: ALBUTEROL SULFATE 2.5 MG/0.5 ML NEB SOLUTION NEB PRN ×2 (05:47→20:11)
[2019-06-26 07:50] VITALS: BP 155/88
[2019-06-26] MEDS: BENZONATATE 100 MG CAPSULE PO SCH ×3 (08:02→20:27)
[2019-06-26] MEDS: HEPARIN SODIUM,PORCINE 5,000 UNITS/ML VIAL SQ SCH ×3 (08:02→20:33)
[2019-06-26] MEDS: PANTOPRAZOLE SODIUM 40 MG DR TABLET PO SCH (08:02)
[2019-06-26] MEDS: DOCUSATE SODIUM 100 MG CAPSULE PO SCH ×2 (08:02→20:27)
[2019-06-26] MEDS: GuaiFENesin SR 600 MG ER TABLET PO SCH ×2 (08:03→20:27)
[2019-06-26] MEDS: BUDESONIDE 0.5 MG/2 ML NEB SOLUTION NEB SCH ×2 (08:53→20:11)
[2019-06-26] MEDS ORDERED: BENZONATATE 100 MG CAPSULE PO SCH (09:00)
[2019-06-26] MEDS ORDERED: BUDESONIDE 0.5 MG/2 ML NEB SOLUTION NEB SCH (09:00)
[2019-06-26] MEDS ORDERED: GuaiFENesin SR 600 MG ER TABLET PO SCH (09:00)
[2019-06-26] MEDS ORDERED: SODIUM CHLORIDE 0.9% 1,000 ML ONE ×2 (11:04→23:42)
[2019-06-26 11:10] VITALS: BP 126/63
[2019-06-26] MEDS ORDERED: DEXTROSE 50%-WATER 25 GM/50 ML SYRINGE IVP PRN (11:15)
[2019-06-26] MEDS: INSULIN LISPRO 100 UNITS/ML SQ PRN ×2 (11:50→20:33)
[2019-06-26] MEDS: ACETAMINOPHEN 325 MG TABLET PO PRN (11:51)
[2019-06-26 15:10] VITALS: BP 124/64
[2019-06-26] MEDS ORDERED: SODIUM CHLORIDE 0.9% 250 ML IV ONE (17:53)
[2019-06-26 18:21] LABS: GLUCOMETER DEV NAME(LOC) 6N.2; GLUCOSE,POINT OF CARE 166 MG/DL (70-110)
[2019-06-26 18:22] LABS: GLUCOMETER DEV NAME(LOC) 6N.2; GLUCOSE,POINT OF CARE 103 MG/DL (70-110)
[2019-06-26 20:37] VITALS: BP 139/77
[2019-06-26 23:03] LABS: GLUCOMETER DEV NAME(LOC) 6N.2; GLUCOSE,POINT OF CARE 156 MG/DL (70-110)
[2019-06-27] MEDS ORDERED: 0.9% SODIUM CHLORIDE 5 ML NEB SOLUTION NEB ONE (02:12)
[2019-06-27] MEDS: ALBUTEROL SULFATE 2.5 MG/0.5 ML NEB SOLUTION NEB PRN ×2 (02:19→08:43)
[2019-06-27 02:38] VITALS: BP 128/68
[2019-06-27] MEDS: INSULIN LISPRO 100 UNITS/ML SQ PRN ×4 (06:26→20:54)
[2019-06-27 08:24] VITALS: BP 130/72
[2019-06-27] MEDS: BUDESONIDE 0.5 MG/2 ML NEB SOLUTION NEB SCH ×2 (08:43→21:03)
[2019-06-27] MEDS: GuaiFENesin SR 600 MG ER TABLET PO SCH ×2 (09:54→20:48)
[2019-06-27] MEDS: DOCUSATE SODIUM 100 MG CAPSULE PO SCH ×2 (09:54→20:48)
[2019-06-27] MEDS: HEPARIN SODIUM,PORCINE 5,000 UNITS/ML VIAL SQ SCH ×3 (09:54→23:48)
[2019-06-27] MEDS: PANTOPRAZOLE SODIUM 40 MG DR TABLET PO SCH (09:54)
[2019-06-27] MEDS: BENZONATATE 100 MG CAPSULE PO SCH ×3 (09:54→20:48)
[2019-06-27 11:43] VITALS: BP 124/68
[2019-06-27 15:28] VITALS: BP 134/74
[2019-06-27 19:18] LABS: GLUCOMETER DEV NAME(LOC) 6N.2; GLUCOSE,POINT OF CARE 116 MG/DL (70-110)
[2019-06-27 19:18] LABS: GLUCOMETER DEV NAME(LOC) 6N.2; GLUCOSE,POINT OF CARE 111 MG/DL (70-110)
[2019-06-27 19:18] LABS: GLUCOMETER DEV NAME(LOC) 6N.2; GLUCOSE,POINT OF CARE 101 MG/DL (70-110)
[2019-06-27 20:15] VITALS: BP 119/62
[2019-06-28] VITALS: BP 132/79
[2019-06-28] MEDS ORDERED: 0.9% SODIUM CHLORIDE 5 ML NEB SOLUTION NEB ONE ×2 (01:12→14:24)
[2019-06-28] MEDS: ALBUTEROL SULFATE 2.5 MG/0.5 ML NEB SOLUTION NEB PRN ×2 (01:20→14:26)
[2019-06-28 04:10] LABS: GLUCOMETER DEV NAME(LOC) 6N.2; GLUCOSE,POINT OF CARE 165 MG/DL (70-110)
[2019-06-28] MEDS: ACETAMINOPHEN 325 MG TABLET PO PRN ×2 (06:06→12:04)
[2019-06-28 06:23] LABS: GLUCOMETER DEV NAME(LOC) 6N.2; GLUCOSE,POINT OF CARE 98 MG/DL (70-110)
[2019-06-28] MEDS: HEPARIN SODIUM,PORCINE 5,000 UNITS/ML VIAL SQ SCH (08:00)
[2019-06-28 08:19] VITALS: BP 120/74
[2019-06-28 08:41] LABS: BASOPHILS % (AUTO) 1.5 % (0.0-2.0); EOSINOPHILS % (AUTO) 2.5 % (1.0-6.0); HEMATOCRIT 34.3 % (41-53); HEMOGLOBIN 11.4 g/dL (13.5-17.5); LYMPHOCYTES # (AUTO) 1.9 K/uL (1.0-4.8); LYMPHOCYTES % (AUTO) 32.3 % (22.0-44.0); MEAN CORPUSCULAR HEMOGLOBIN 29.5 pg (26.0-34.0); MEAN CORPUSCULAR HGB CONC 33.1 G/dL (31.0-37.0); MEAN CORPUSCULAR VOLUME 89 fL (80-100); MONOCYTES # (AUTO) 0.7 K/uL (0.1-1.0); MONOCYTES % (AUTO) 12.1 % (2.0-9.0); NEUTROPHILS # (AUTO) 3.1 K/uL (1.8-7.7); NEUTROPHILS % (AUTO) 51.6 % (40.0-70.0); PLATELET COUNT (AUTO) 53 K/uL (150-450); RED BLOOD CELL COUNT(AUTO) 3.85 MIL/uL (4.50-5.90); RED CELL DISTRIBUTION WIDTH 18.4 % (11.5-14.5)
[2019-06-28] MEDS: BUDESONIDE 0.5 MG/2 ML NEB SOLUTION NEB SCH (08:53)
[2019-06-28 09:04] LABS: ALANINE AMINOTRANSFERASE 91 U/L (12-78); ALBUMIN 2.3 g/dL (3.4-5.0); ALKALINE PHOSPHATASE 142 U/L (46-116); ANION GAP 7 mmol/L (8-16); ASPARTATE AMINOTRANSFERASE 154 U/L (15-37); BILIRUBIN,TOTAL 3.4 mg/dL (0.1-1.0); CALCIUM, TOTAL 8.3 mg/dL (8.8-10.5); CARBON DIOXIDE 27 mmol/L (22-29); CHLORIDE 101 mmol/L (98-107); CREATININE 0.91 mg/dL (0.60-1.30); GLOMERULAR FILTR. RATE CALC > 60 mL/min (>60); GLUCOSE,RANDOM 108 mg/dL (70-110); POTASSIUM 3.3 mmol/L (3.5-5.1); SODIUM SERUM 135 mmol/L (136-145); TOTAL PROTEIN, SERUM 8.2 g/dL (6.4-8.2); UREA NITROGEN, BLOOD 13 mg/dL (7-18)
[2019-06-28] MEDS: DOCUSATE SODIUM 100 MG CAPSULE PO SCH (09:11)
[2019-06-28] MEDS: BENZONATATE 100 MG CAPSULE PO SCH (09:12)
[2019-06-28] MEDS: PANTOPRAZOLE SODIUM 40 MG DR TABLET PO SCH (09:12)
[2019-06-28] MEDS: GuaiFENesin SR 600 MG ER TABLET PO SCH (09:12)
[2019-06-28 10:03] LABS: PLATELET MORPHOLOGY COMMENT LARGE PLTS PRESENT
[2019-06-28 11:39] VITALS: BP 130/87
[2019-06-28] MEDS ORDERED: ALBU8HFA IH (13:37)
[2019-06-28] MEDS ORDERED: BENZ100C68 PO (13:37)
[2019-06-28 16:43] LABS: GLUCOMETER DEV NAME(LOC) 6N.2; GLUCOSE,POINT OF CARE 108 MG/DL (70-110)
== END 2019-06-28 16:26 | disposition home or self-care (01) | DRG 775 ==
LOC: EMS 11:03 → 6N 18:30
PROVIDERS: ADMIT Internal Medicine; ATTEND Internal Medicine
DX: F10.129 Alcohol abuse with intoxication, unspecified (principal); E43 Unspecified severe protein-calorie malnutrition; D61.818 Other pancytopenia; R65.10 Systemic inflammatory response syndrome (SIRS) of non-infectious origin without acute organ dysfunction; E11.9 Type 2 diabetes mellitus without complications; J44.9 Chronic obstructive pulmonary disease, unspecified; I10 Essential (primary) hypertension; E78.00 Pure hypercholesterolemia, unspecified; B19.20 Unspecified viral hepatitis C without hepatic coma; Z86.73 Personal history of transient ischemic attack (TIA), and cerebral infarction without residual deficits; Z87.891 Personal history of nicotine dependence; Z68.23 Body mass index [BMI] 23.0-23.9, adult
CPT/HCPCS: 36600; 74176; 76705; 82805; 87804; 93005; 94640; G0480; J1644; J2270; J2405; J2543; J2704; J2930; J3411; J3475; J3490; J3535; J7030; J7050

== ENCOUNTER 2019-09-26 12:43 | Emergency (ER) | payer OTHER ==
[~2019-09-26] VITALS: Ht 170.2 cm; Wt 65.9 kg
[~2019-09-26 12:43] MED LIST changes: -AZIT200S36 PO; +BENZ100C68 PO
[2019-09-26] MEDS ORDERED: MethylPREDNISolone SOD SUCC 125 MG/2 ML VIAL IVP ONE (13:45)
[2019-09-26 15:37] LABS: BASOPHILS % (AUTO) 1.4 % (0.0-2.0); EOSINOPHILS % (AUTO) 5.6 % (1.0-6.0); HEMATOCRIT 34.1 % (41-53); HEMOGLOBIN 11.3 g/dL (13.5-17.5); LYMPHOCYTES # (AUTO) 2.9 K/uL (1.0-4.8); LYMPHOCYTES % (AUTO) 51.9 % (22.0-44.0); MEAN CORPUSCULAR HEMOGLOBIN 29.9 pg (26.0-34.0); MEAN CORPUSCULAR HGB CONC 33.2 G/dL (31.0-37.0); MEAN CORPUSCULAR VOLUME 90 fL (80-100); MONOCYTES # (AUTO) 0.4 K/uL (0.1-1.0); MONOCYTES % (AUTO) 6.4 % (2.0-9.0); NEUTROPHILS % (AUTO) 34.7 % (40.0-70.0); PLATELET COUNT (AUTO) 111 K/uL (150-450); RED BLOOD CELL COUNT(AUTO) 3.79 MIL/uL (4.50-5.90); RED CELL DISTRIBUTION WIDTH 19.5 % (11.5-14.5)
[2019-09-26 15:54] LABS: ANION GAP 9 mmol/L (8-16); CARBON DIOXIDE 30 mmol/L (22-29); CHLORIDE 105 mmol/L (98-107); CREATININE 1.04 mg/dL (0.60-1.30); GLUCOSE,RANDOM 116 mg/dL (70-110); POTASSIUM 3.5 mmol/L (3.5-5.1); SODIUM SERUM 144 mmol/L (136-145); UREA NITROGEN, BLOOD 20 mg/dL (7-18)
[2019-09-26 15:55] LABS: CALCIUM, TOTAL 8.6 mg/dL (8.8-10.5); GLOMERULAR FILTR. RATE CALC > 60 mL/min (>60)
[2019-09-26 16:01] LABS: ALANINE AMINOTRANSFERASE 61 U/L (12-78); ALBUMIN 3.2 g/dL (3.4-5.0); ALKALINE PHOSPHATASE 123 U/L (46-116); ASPARTATE AMINOTRANSFERASE 120 U/L (15-37); TOTAL PROTEIN, SERUM 9.7 g/dL (6.4-8.2)
[2019-09-26 17:38] VITALS: BP 123/77
== END 2019-09-26 17:45 | disposition home or self-care (01) ==
LOC: EMS 12:47
DX: J44.1 Chronic obstructive pulmonary disease with (acute) exacerbation (principal); R74.0 Nonspecific elevation of levels of transaminase and lactic acid dehydrogenase [LDH]; F10.10 Alcohol abuse, uncomplicated; E11.9 Type 2 diabetes mellitus without complications; E78.00 Pure hypercholesterolemia, unspecified; I10 Essential (primary) hypertension; F17.210 Nicotine dependence, cigarettes, uncomplicated; Z20.828 Contact with and (suspected) exposure to other viral communicable diseases; Z86.73 Personal history of transient ischemic attack (TIA), and cerebral infarction without residual deficits; Z88.5 Allergy status to narcotic agent
CPT/HCPCS: 36415; 71045; 80053; 83880; 84484; 85025; 93005; 96374; 99285; G0480; J2930; U0003

== ENCOUNTER 2019-11-05 23:56 | Inpatient (IN) | payer OTHER ==
[~2019-11-05] VITALS: Ht 166.4 cm; Wt 57.8 kg
[2019-11-06] MEDS ORDERED: 0.9% SODIUM CHLORIDE 15 ML NEB SOLUTION NEB ONE (00:21)
[2019-11-06] MEDS ORDERED: ALBUTEROL SULFATE 5 MG/ML 20 ML NEB SOLN [BULK] NEB ONE (00:30)
[2019-11-06] MEDS ORDERED: MethylPREDNISolone SOD SUCC 125 MG/2 ML VIAL IVP ONE (00:30)
[2019-11-06 01:14] LABS: BASOPHILS % (AUTO) 0.8 % (0.0-2.0); HEMATOCRIT 35.2 % (41-53); HEMOGLOBIN 11.4 g/dL (13.5-17.5); LYMPHOCYTES # (AUTO) 2.7 K/uL (1.0-4.8); LYMPHOCYTES % (AUTO) 28.6 % (22.0-44.0); MEAN CORPUSCULAR HEMOGLOBIN 28.3 pg (26.0-34.0); MEAN CORPUSCULAR HGB CONC 32.4 G/dL (31.0-37.0); MEAN CORPUSCULAR VOLUME 88 fL (80-100); MONOCYTES # (AUTO) 1.2 K/uL (0.1-1.0); MONOCYTES % (AUTO) 12.4 % (2.0-9.0); NEUTROPHILS # (AUTO) 3.7 K/uL (1.8-7.7); NEUTROPHILS % (AUTO) 38.9 % (40.0-70.0); PLATELET COUNT (AUTO) 177 K/uL (150-450); RED BLOOD CELL COUNT(AUTO) 4.03 MIL/uL (4.50-5.90); RED CELL DISTRIBUTION WIDTH 19.6 % (11.5-14.5)
[2019-11-06 01:24] LABS: EOSINOPHILS % (AUTO) 19.3 % (1.0-6.0)
[2019-11-06] MEDS ORDERED: 0.9% SODIUM CHLORIDE 10 ML SYRINGE IVP PRN (02:45)
[2019-11-06] MEDS ORDERED: ONDANSETRON HCL 4 MG/2 ML VIAL IVP PRN ×2 (02:45→13:00)
[2019-11-06] MEDS ORDERED: ACETAMINOPHEN 325 MG TABLET PO PRN (02:45)
[2019-11-06 04:14] VITALS: BP 118/68
[2019-11-06 07:26] LABS: ALANINE AMINOTRANSFERASE 82 U/L (12-78); ALBUMIN 3.1 g/dL (3.4-5.0); ALKALINE PHOSPHATASE 108 U/L (46-116); ANION GAP 4 mmol/L (8-16); ASPARTATE AMINOTRANSFERASE 123 U/L (15-37); BILIRUBIN,TOTAL 2.4 mg/dL (0.1-1.0); CALCIUM, TOTAL 9.2 mg/dL (8.8-10.5); CARBON DIOXIDE 30 mmol/L (22-29); CHLORIDE 104 mmol/L (98-107); CREATINE KINASE, TOTAL ONLY 150 U/L (39-308); CREATININE 0.99 mg/dL (0.60-1.30); GLOMERULAR FILTR. RATE CALC > 60 mL/min (>60); GLUCOSE,RANDOM 136 mg/dL (70-110); SODIUM SERUM 138 mmol/L (136-145); TOTAL PROTEIN, SERUM 8.9 g/dL (6.4-8.2); UREA NITROGEN, BLOOD 11 mg/dL (7-18)
[2019-11-06 07:50] VITALS: BP 126/76
[2019-11-06 11:25] VITALS: BP 119/72
[2019-11-06] MEDS ORDERED: ZOLPIDEM TARTRATE 5 MG TABLET PO PRN (13:00)
[2019-11-06] MEDS ORDERED: IPRATROPIUM BROMIDE 0.5 MG/2.5 ML NEB SOLUTION NEB PRN (13:00)
[2019-11-06] MEDS ORDERED: MAGNESIUM HYDROXIDE SUSPENSION 30 ML UDCUP PO PRN (13:00)
[2019-11-06] MEDS ORDERED: ALBUTEROL SULFATE 2.5 MG/0.5 ML NEB SOLUTION NEB PRN (13:00)
[2019-11-06] MEDS ORDERED: BISACODYL 10 MG RECTAL RECTAL SUPPOSITORY PR PRN (13:00)
[2019-11-06] MEDS: ALBUTEROL SULFATE 2.5 MG/0.5 ML NEB SOLUTION NEB SCH ×3 (13:30→23:00)
[2019-11-06] MEDS: IPRATROPIUM BROMIDE 0.5 MG/2.5 ML NEB SOLUTION NEB SCH ×3 (13:30→23:00)
[2019-11-06] MEDS: HEPARIN SODIUM,PORCINE 5,000 UNITS/ML VIAL SQ SCH (16:00)
[2019-11-06 16:40] VITALS: BP 125/57
[2019-11-06] MEDS: MethylPREDNISolone SOD SUCC 125 MG/2 ML VIAL IVP SCH (17:05)
[2019-11-06 20:24] VITALS: BP 132/57
[2019-11-06] MEDS: DOCUSATE SODIUM 100 MG CAPSULE PO SCH ×2 (21:00→22:12)
[2019-11-07] VITALS (7 sets, daily range): BP systolic 129–145; BP diastolic 60–82
[2019-11-07] MEDS: MethylPREDNISolone SOD SUCC 125 MG/2 ML VIAL IVP SCH ×5 (00:59→23:51)
[2019-11-07] MEDS: HEPARIN SODIUM,PORCINE 5,000 UNITS/ML VIAL SQ SCH ×4 (01:00→23:51)
[2019-11-07] MEDS: ALBUTEROL SULFATE 2.5 MG/0.5 ML NEB SOLUTION NEB SCH ×6 (03:00→22:32)
[2019-11-07] MEDS: IPRATROPIUM BROMIDE 0.5 MG/2.5 ML NEB SOLUTION NEB SCH ×6 (03:00→22:32)
[2019-11-07] MEDS: ALBUTEROL SULFATE HFA 90 MCG/PUFF 8 GM INHALER IH PRN ×2 (04:31→11:50)
[2019-11-07] MEDS: PANTOPRAZOLE SODIUM 40 MG DR TABLET PO SCH (08:15)
[2019-11-07] MEDS: DOCUSATE SODIUM 100 MG CAPSULE PO SCH ×2 (08:27→19:45)
[2019-11-07] MEDS: ACETAMINOPHEN 325 MG TABLET PO PRN ×2 (19:45→23:50)
[2019-11-08] MEDS: IPRATROPIUM BROMIDE 0.5 MG/2.5 ML NEB SOLUTION NEB SCH ×6 (03:00→23:08)
[2019-11-08] MEDS: ALBUTEROL SULFATE 2.5 MG/0.5 ML NEB SOLUTION NEB SCH ×6 (03:00→23:08)
[2019-11-08 03:39] VITALS: BP 139/74
[2019-11-08] MEDS: MethylPREDNISolone SOD SUCC 125 MG/2 ML VIAL IVP SCH (06:02)
[2019-11-08 07:12] VITALS: BP 157/89
[2019-11-08] MEDS: DOCUSATE SODIUM 100 MG CAPSULE PO SCH ×2 (08:08→20:31)
[2019-11-08] MEDS: PANTOPRAZOLE SODIUM 40 MG DR TABLET PO SCH (08:08)
[2019-11-08] MEDS: HEPARIN SODIUM,PORCINE 5,000 UNITS/ML VIAL SQ SCH ×2 (08:08→17:18)
[2019-11-08 11:39] VITALS: BP 154/87
[2019-11-08 11:52] LABS: BASOPHILS % (AUTO) 0.2 % (0.0-2.0); EOSINOPHILS % (AUTO) 0 % (1.0-6.0); HEMATOCRIT 35.1 % (41-53); HEMOGLOBIN 11.3 g/dL (13.5-17.5); LYMPHOCYTES # (AUTO) 0.8 K/uL (1.0-4.8); MEAN CORPUSCULAR HEMOGLOBIN 27.9 pg (26.0-34.0); MEAN CORPUSCULAR HGB CONC 32.2 G/dL (31.0-37.0); MEAN CORPUSCULAR VOLUME 86 fL (80-100); MONOCYTES # (AUTO) 0.6 K/uL (0.1-1.0); MONOCYTES % (AUTO) 7.5 % (2.0-9.0); NEUTROPHILS # (AUTO) 6.5 K/uL (1.8-7.7); NEUTROPHILS % (AUTO) 82.3 % (40.0-70.0); PLATELET COUNT (AUTO) 157 K/uL (150-450); RED BLOOD CELL COUNT(AUTO) 4.06 MIL/uL (4.50-5.90); RED CELL DISTRIBUTION WIDTH 19.4 % (11.5-14.5)
[2019-11-08] MEDS ORDERED: MethylPREDNISolone SOD SUCC 125 MG/2 ML VIAL IVP SCH (12:00)
[2019-11-08 12:01] LABS: ANION GAP 5 mmol/L (8-16); CARBON DIOXIDE 30 mmol/L (22-29); CHLORIDE 101 mmol/L (98-107); GLOMERULAR FILTR. RATE CALC > 60 mL/min (>60); GLUCOSE,RANDOM 319 mg/dL (70-110); POTASSIUM 3.6 mmol/L (3.5-5.1); SODIUM SERUM 136 mmol/L (136-145); UREA NITROGEN, BLOOD 17 mg/dL (7-18)
[2019-11-08 12:05] LABS: ALANINE AMINOTRANSFERASE 65 U/L (12-78); ALBUMIN 2.6 g/dL (3.4-5.0); ALKALINE PHOSPHATASE 81 U/L (46-116); ASPARTATE AMINOTRANSFERASE 59 U/L (15-37); BILIRUBIN,TOTAL 1.7 mg/dL (0.1-1.0); TOTAL PROTEIN, SERUM 7.9 g/dL (6.4-8.2)
[2019-11-08] MEDS: THIAMINE 100 MG TABLET PO SCH (12:39)
[2019-11-08] MEDS: MULTIVITAMINS WITH MINERALS, THERAPEUTIC TABLET PO SCH (12:39)
[2019-11-08] MEDS: FOLIC ACID 1 MG TABLET PO SCH (12:39)
[2019-11-08] MEDS: PredniSONE 20 MG TABLET PO SCH (13:40)
[2019-11-08 15:10] VITALS: BP 131/75
[2019-11-08 20:03] VITALS: BP 149/71
[2019-11-08] MEDS: ACETAMINOPHEN 325 MG TABLET PO PRN (20:31)
[2019-11-09 00:14] VITALS: BP 140/71
[2019-11-09] MEDS: HEPARIN SODIUM,PORCINE 5,000 UNITS/ML VIAL SQ SCH ×2 (00:27→08:22)
[2019-11-09] MEDS: IPRATROPIUM BROMIDE 0.5 MG/2.5 ML NEB SOLUTION NEB SCH ×3 (02:41→10:49)
[2019-11-09] MEDS: ALBUTEROL SULFATE 2.5 MG/0.5 ML NEB SOLUTION NEB SCH ×3 (02:41→10:49)
[2019-11-09 04:26] VITALS: BP 102/53
[2019-11-09 07:22] VITALS: BP 130/74
[2019-11-09] MEDS: MULTIVITAMINS WITH MINERALS, THERAPEUTIC TABLET PO SCH (08:20)
[2019-11-09] MEDS: PANTOPRAZOLE SODIUM 40 MG DR TABLET PO SCH (08:21)
[2019-11-09] MEDS: PredniSONE 20 MG TABLET PO SCH (08:21)
[2019-11-09] MEDS: FOLIC ACID 1 MG TABLET PO SCH (08:21)
[2019-11-09] MEDS: DOCUSATE SODIUM 100 MG CAPSULE PO SCH (08:22)
[2019-11-09] MEDS: THIAMINE 100 MG TABLET PO SCH (08:28)
[2019-11-09 11:45] VITALS: BP 124/70
[2019-11-09] MEDS ORDERED: MULT-1119 PO (14:58)
[2019-11-09] MEDS ORDERED: FOLI-130 PO (14:58)
[2019-11-09] MEDS ORDERED: IPRA4AER IH (15:00)
[2019-11-09] MEDS ORDERED: PRED20 PO (15:05)
[2019-11-09] MEDS ORDERED: THIA100T80 PO (15:06)
== END 2019-11-09 15:25 | disposition home or self-care (01) | DRG 140 ==
LOC: EMS 23:58 → 5N 11-06 03:00 → 5S 11-07 16:50
PROVIDERS: ADMIT Hospitalist; ATTEND Hospitalist
DX: J44.1 Chronic obstructive pulmonary disease with (acute) exacerbation (principal); J96.21 Acute and chronic respiratory failure with hypoxia; F10.20 Alcohol dependence, uncomplicated; K21.9 Gastro-esophageal reflux disease without esophagitis; E78.00 Pure hypercholesterolemia, unspecified; Z88.8 Allergy status to other drugs, medicaments and biological substances; Z86.73 Personal history of transient ischemic attack (TIA), and cerebral infarction without residual deficits; I10 Essential (primary) hypertension; E11.9 Type 2 diabetes mellitus without complications; R56.9 Unspecified convulsions; B19.20 Unspecified viral hepatitis C without hepatic coma; K76.9 Liver disease, unspecified; Y90.9 Presence of alcohol in blood, level not specified; F17.210 Nicotine dependence, cigarettes, uncomplicated; Z20.828 Contact with and (suspected) exposure to other viral communicable diseases
CPT/HCPCS: 84145; 93005; 94640; 94644; 97162; 97530; 99291; J1644; J2930; J3535; 36415-L1; 36415-TC; 71045-TC; J7611; J7613; U0003-CS

== ENCOUNTER 2020-02-27 03:07 | Inpatient (IN) | payer OTHER ==
[~2020-02-27] VITALS: Ht 165.1 cm; Wt 71.0 kg
[~2020-02-27 03:07] MED LIST changes: -ALBU8HFA IH; -BENZ100C68 PO; +BENZ200C53 PO; +FOLI-130 PO; +GUAIF600 PO; +IPRA4AER IH; +MULT-1119 PO; +PRED10 PO; +PRED20 PO; -PRED5 PO; +THIA100T80 PO
[2020-02-27 04:17] LABS: ANION GAP 10 mmol/L (8-16); CALCIUM, TOTAL 8.6 mg/dL (8.8-10.5); CARBON DIOXIDE 25 mmol/L (22-29); CHLORIDE 109 mmol/L (98-107); CREATININE 0.65 mg/dL (0.60-1.30); GLOMERULAR FILTR. RATE CALC > 60 mL/min (>60); GLUCOSE,RANDOM 136 mg/dL (70-110); POTASSIUM 3.9 mmol/L (3.5-5.1); SODIUM SERUM 144 mmol/L (136-145); UREA NITROGEN, BLOOD 18 mg/dL (7-18)
[2020-02-27 04:21] LABS: EOSINOPHILS % (AUTO) 0.4 % (1.0-6.0); HEMATOCRIT 31.1 % (41-53); LYMPHOCYTES # (AUTO) 3.4 K/uL (1.0-4.8); LYMPHOCYTES % (AUTO) 34.3 % (22.0-44.0); MEAN CORPUSCULAR HEMOGLOBIN 27.2 pg (26.0-34.0); MEAN CORPUSCULAR HGB CONC 32.3 G/dL (31.0-37.0); MEAN CORPUSCULAR VOLUME 84 fL (80-100); MONOCYTES # (AUTO) 0.8 K/uL (0.1-1.0); MONOCYTES % (AUTO) 8.2 % (2.0-9.0); NEUTROPHILS # (AUTO) 5.6 K/uL (1.8-7.7); NEUTROPHILS % (AUTO) 56.1 % (40.0-70.0); PLATELET COUNT (AUTO) 159 K/uL (150-450); RED BLOOD CELL COUNT(AUTO) 3.69 MIL/uL (4.50-5.90); RED CELL DISTRIBUTION WIDTH 19.4 % (11.5-14.5)
[2020-02-27] MEDS ORDERED: SODIUM CHLORIDE 0.9% 0 ML ONE ×2 (04:37→08:06)
[2020-02-27] MEDS ORDERED: IOVERSOL 350 MG/ML 100 ML VIAL ONE ×2 (04:37→08:06)
[2020-02-27 04:40] LABS: ALANINE AMINOTRANSFERASE 106 U/L (12-78); ALBUMIN 2.9 g/dL (3.4-5.0); ALKALINE PHOSPHATASE 149 U/L (46-116); ASPARTATE AMINOTRANSFERASE 147 U/L (15-37); BILIRUBIN,TOTAL 1.4 mg/dL (0.1-1.0); CREATINE KINASE, TOTAL ONLY 283 U/L (39-308)
[2020-02-27] MEDS ORDERED: MORPHINE SULFATE 4 MG/ML SYRINGE IVP ONE (04:45)
[2020-02-27] MEDS ORDERED: PIPERACILLIN/TAZO 3.375 GM/D5W 50 ML IV ONE (06:30)
[2020-02-27] MEDS ORDERED: VANCOMYCIN HCL 1.25 GM in DEXTROSE 5%-WATER 250 ML IV ONE (06:30)
[2020-02-27] MEDS ORDERED: CefTRIAXone 1 GM/DEXTROSE 50 ML IV ONE (06:45)
[2020-02-27] MEDS ORDERED: MORPHINE SULFATE 2 MG/ML SYRINGE IVP ONE (07:00)
[2020-02-27] MEDS ORDERED: ONDANSETRON HCL 4 MG/2 ML VIAL IVP ONE (07:45)
[2020-02-27] MEDS ORDERED: IOVERSOL 350 MG/ML 150 ML VIAL ONE (08:08)
[2020-02-27] MEDS ORDERED: MAGNESIUM OXIDE 400 MG TABLET PO PRN (08:30)
[2020-02-27] MEDS ORDERED: POTASSIUM CHL 10 MEQ/WATER 50 ML IV PRN (08:30)
[2020-02-27] MEDS ORDERED: POTASSIUM CHLORIDE 20 MEQ ER TABLET PO PRN (08:30)
[2020-02-27] MEDS ORDERED: MAGNESIUM SULFATE 2 GM/WATER 50 ML IV PRN (08:30)
[2020-02-27] MEDS ORDERED: MAGNESIUM SULFATE 4 GM/WATER 100 ML IV PRN (08:30)
[2020-02-27] MEDS ORDERED: DEXTROSE 50%-WATER 25 GM/50 ML SYRINGE IVP PRN (08:30)
[2020-02-27] MEDS ORDERED: LORazepam 2 MG/ML VIAL IVP PRN (08:45)
[2020-02-27] MEDS ORDERED: SODIUM CHLORIDE 0.9% 1,000 ML IV ONE (08:45)
[2020-02-27] MEDS: MULTIVITAMINS WITH MINERALS, THERAPEUTIC TABLET PO SCH (09:56)
[2020-02-27] MEDS: ASPIRIN 81 MG CHEWABLE TABLET PO SCH (09:56)
[2020-02-27 10:23] LABS: GLUCOSE,POINT OF CARE 135 MG/DL (70-110)
[2020-02-27 10:37] VITALS: BP 151/89
[2020-02-27] MEDS ORDERED: PNEUMOCOCCAL VACCINE POLYVALENT 0.5 ML VIAL [PPSV23] IM ONE (12:30)
[2020-02-27] MEDS: HYDROCODONE/ACETAMINOPHEN 5-325 MG TABLET PO PRN (14:33)
[2020-02-27] MEDS: PIPERACILLIN/TAZO 3.375 GM/D5W 50 ML IV SCH ×2 (14:34→18:27)
[2020-02-27 14:52] LABS: GLUCOMETER DEV NAME(LOC) 6N.2; GLUCOSE,POINT OF CARE 126 MG/DL (70-110)
[2020-02-27 15:14] VITALS: BP 144/83
[2020-02-27] MEDS: VANCOMYCIN HCL 1 GM/D5% WATER 200 ML IV SCH (15:45)
[2020-02-27] MEDS ORDERED: BARIUM SULFATE 0.1% SUSPENSION 450 ML BOTTLE ONE (17:03)
[2020-02-27] MEDS ORDERED: IOVERSOL 320 MG/ML 50 ML VIAL ONE (17:04)
[2020-02-27] MEDS ORDERED: SODIUM CHLORIDE 0.9% 100 ML ONE (17:04)
[2020-02-27] MEDS ORDERED: IOVERSOL 320 MG/ML 100 ML VIAL ONE (17:04)
[2020-02-27 18:20] LABS: GLUCOMETER DEV NAME(LOC) 6S.1; GLUCOSE,POINT OF CARE 117 MG/DL (70-110)
[2020-02-27] MEDS ORDERED: ONDANSETRON HCL 4 MG/2 ML VIAL IVP PRN (18:45)
[2020-02-27] MEDS ORDERED: ALBUTEROL SULFATE 2.5 MG/0.5 ML NEB SOLUTION NEB PRN (20:45)
[2020-02-27] MEDS ORDERED: IPRATROPIUM BROMIDE 0.5 MG/2.5 ML NEB SOLUTION NEB PRN (20:45)
[2020-02-27 20:48] VITALS: BP 144/82
[2020-02-28 00:17] VITALS: BP 161/81
[2020-02-28] MEDS ORDERED: ALBUTEROL SULFATE 2.5 MG/0.5 ML NEB SOLUTION NEB PRN (00:45)
[2020-02-28] MEDS ORDERED: IPRATROPIUM BROMIDE 0.5 MG/2.5 ML NEB SOLUTION NEB PRN (00:45)
[2020-02-28] MEDS: VANCOMYCIN HCL 1 GM/D5% WATER 200 ML IV SCH ×4 (01:35→16:06)
[2020-02-28] MEDS: PIPERACILLIN/TAZO 3.375 GM/D5W 50 ML IV SCH ×3 (01:58→18:35)
[2020-02-28] MEDS ORDERED: IOVERSOL 350 MG/ML 150 ML VIAL ONE (02:25)
[2020-02-28] MEDS ORDERED: SODIUM CHLORIDE 0.9% 100 ML ONE (02:25)
[2020-02-28] MEDS: IPRATROPIUM BROMIDE 0.5 MG/2.5 ML NEB SOLUTION NEB SCH ×6 (03:48→23:23)
[2020-02-28] MEDS: ALBUTEROL SULFATE 2.5 MG/0.5 ML NEB SOLUTION NEB SCH ×6 (03:49→23:23)
[2020-02-28 05:12] VITALS: BP 154/80
[2020-02-28 06:42] LABS: GLUCOMETER DEV NAME(LOC) 6S.1; GLUCOSE,POINT OF CARE 81 MG/DL (70-110)
[2020-02-28 07:08] LABS: ANION GAP 9 mmol/L (8-16); CALCIUM, TOTAL 8.8 mg/dL (8.8-10.5); CARBON DIOXIDE 26 mmol/L (22-29); CHLORIDE 104 mmol/L (98-107); CREATININE 0.56 mg/dL (0.60-1.30); GLOMERULAR FILTR. RATE CALC > 60 mL/min (>60); GLUCOSE,RANDOM 79 mg/dL (70-110); SODIUM SERUM 139 mmol/L (136-145); UREA NITROGEN, BLOOD 10 mg/dL (7-18)
[2020-02-28 08:00] VITALS: BP 136/77
[2020-02-28] MEDS: ASPIRIN 81 MG CHEWABLE TABLET PO SCH (09:00)
[2020-02-28] MEDS: MULTIVITAMINS WITH MINERALS, THERAPEUTIC TABLET PO SCH (09:00)
[2020-02-28 11:34] VITALS: BP 149/91
[2020-02-28 11:38] LABS: GLUCOMETER DEV NAME(LOC) 6S.1; GLUCOSE,POINT OF CARE 80 MG/DL (70-110)
[2020-02-28] MEDS ORDERED: FentaNYL CITRATE-PF 100 MCG/2 ML VIAL IVP ONE (12:00)
[2020-02-28] MEDS ORDERED: MIDAZOLAM HCL 2 MG/2 ML VIAL IVP ONE (12:00)
[2020-02-28] MEDS: HYDROCODONE/ACETAMINOPHEN 5-325 MG TABLET PO PRN (17:27)
[2020-02-28 18:01] LABS: GLUCOMETER DEV NAME(LOC) 6N.2; GLUCOSE,POINT OF CARE 134 MG/DL (70-110)
[2020-02-28 19:40] VITALS: BP 134/61
[2020-02-28] MEDS: INSULIN LISPRO 100 UNITS/ML SQ PRN (20:19)
[2020-02-28 21:30] LABS: GLUCOMETER DEV NAME(LOC) 6S.1; GLUCOSE,POINT OF CARE 154 MG/DL (70-110)
[2020-02-29] VITALS (7 sets, daily range): BP systolic 102–144; BP diastolic 53–86
[2020-02-29] MEDS: ACETAMINOPHEN 325 MG TABLET PO PRN ×3 (00:54→21:53)
[2020-02-29] MEDS: PIPERACILLIN/TAZO 3.375 GM/D5W 50 ML IV SCH ×4 (00:54→18:01)
[2020-02-29] MEDS: VANCOMYCIN HCL 1 GM/D5% WATER 200 ML IV SCH ×3 (00:54→16:23)
[2020-02-29] MEDS: ALBUTEROL SULFATE 2.5 MG/0.5 ML NEB SOLUTION NEB SCH ×6 (03:42→22:51)
[2020-02-29] MEDS: IPRATROPIUM BROMIDE 0.5 MG/2.5 ML NEB SOLUTION NEB SCH ×6 (03:42→22:51)
[2020-02-29] MEDS: INSULIN LISPRO 100 UNITS/ML SQ PRN ×2 (05:09→20:45)
[2020-02-29 06:55] LABS: GLUCOMETER DEV NAME(LOC) 6N.2; GLUCOSE,POINT OF CARE 117 MG/DL (70-110)
[2020-02-29] MEDS: MULTIVITAMINS WITH MINERALS, THERAPEUTIC TABLET PO SCH (08:41)
[2020-02-29] MEDS: ASPIRIN 81 MG CHEWABLE TABLET PO SCH (08:42)
[2020-02-29] MEDS: HYDROCODONE/ACETAMINOPHEN 5-325 MG TABLET PO PRN ×2 (08:44→18:11)
[2020-02-29 11:56] LABS: GLUCOMETER DEV NAME(LOC) 6S.1; GLUCOSE,POINT OF CARE 134 MG/DL (70-110)
[2020-02-29 16:53] LABS: HEMATOCRIT 30.9 % (41-53); MEAN CORPUSCULAR HEMOGLOBIN 27.5 pg (26.0-34.0); MEAN CORPUSCULAR HGB CONC 32.5 G/dL (31.0-37.0); MEAN CORPUSCULAR VOLUME 85 fL (80-100); PLATELET COUNT (AUTO) 84 K/uL (150-450); RED BLOOD CELL COUNT(AUTO) 3.65 MIL/uL (4.50-5.90); RED CELL DISTRIBUTION WIDTH 20.2 % (11.5-14.5)
[2020-02-29 16:54] LABS: GLUCOMETER DEV NAME(LOC) 6N.2; GLUCOSE,POINT OF CARE 93 MG/DL (70-110)
[2020-02-29 17:08] LABS: ANION GAP 3 mmol/L (8-16); CALCIUM, TOTAL 9.2 mg/dL (8.8-10.5); CARBON DIOXIDE 29 mmol/L (22-29); CHLORIDE 102 mmol/L (98-107); CREATININE 0.87 mg/dL (0.60-1.30); GLOMERULAR FILTR. RATE CALC > 60 mL/min (>60); GLUCOSE,RANDOM 119 mg/dL (70-110); POTASSIUM 4.4 mmol/L (3.5-5.1); SODIUM SERUM 134 mmol/L (136-145); UREA NITROGEN, BLOOD 16 mg/dL (7-18); VANCOMYCIN,RANDOM 22.5 mcg/mL (25.0-50.0)
[2020-02-29 17:58] LABS: BAND NEUTROPHILS % (MANUAL) 4 % (0-5); EOSINOPHILS % (MANUAL) 4 % (1-6); LYMPHOCYTES % (MANUAL) 24 % (22-44); MONOCYTES % (MANUAL) 9 % (2-9); PLATELET MORPHOLOGY COMMENT LARGE PLTS PRESENT; SEGMENTED NEUTROPHILS % 59 % (40-70)
[2020-02-29] MEDS ORDERED: ALBUTEROL SULFATE/IPRATROPIUM 100-20 MCG/SPRAY 4 GM INHALER IH PRN (21:00)
[2020-03-01] MEDS: VANCOMYCIN HCL 1 GM/D5% WATER 200 ML IV SCH (00:25)
[2020-03-01] MEDS: PIPERACILLIN/TAZO 3.375 GM/D5W 50 ML IV SCH ×2 (01:15→06:10)
[2020-03-01 01:50] LABS: GLUCOMETER DEV NAME(LOC) 6S.1; GLUCOSE,POINT OF CARE 110 MG/DL (70-110)
[2020-03-01] MEDS: HYDROCODONE/ACETAMINOPHEN 5-325 MG TABLET PO PRN ×2 (03:47→22:27)
[2020-03-01] MEDS: IPRATROPIUM BROMIDE 0.5 MG/2.5 ML NEB SOLUTION NEB SCH ×5 (03:50→19:39)
[2020-03-01] MEDS: ALBUTEROL SULFATE 2.5 MG/0.5 ML NEB SOLUTION NEB SCH ×5 (03:50→19:39)
[2020-03-01 04:00] VITALS: BP 130/79
[2020-03-01 07:56] VITALS: BP 143/86
[2020-03-01] MEDS ORDERED: VANCOMYCIN HCL 1 GM/D5% WATER 200 ML IV SCH (08:00)
[2020-03-01] MEDS: ASPIRIN 81 MG CHEWABLE TABLET PO SCH (08:29)
[2020-03-01] MEDS: BECLOMETHASONE DIPR HFA 80 MCG/PUFF 10.6 GM INHALER IH SCH (08:29)
[2020-03-01] MEDS: MULTIVITAMINS WITH MINERALS, THERAPEUTIC TABLET PO SCH ×2 (08:29→08:38)
[2020-03-01 11:22] VITALS: BP 141/77
[2020-03-01 12:42] LABS: GLUCOMETER DEV NAME(LOC) 6N.2; GLUCOSE,POINT OF CARE 94 MG/DL (70-110)
[2020-03-01 12:42] LABS: GLUCOMETER DEV NAME(LOC) 6S.1; GLUCOSE,POINT OF CARE 90 MG/DL (70-110)
[2020-03-01 16:27] VITALS: BP 142/82
[2020-03-01 17:19] LABS: GLUCOMETER DEV NAME(LOC) 6N.2; GLUCOSE,POINT OF CARE 115 MG/DL (70-110)
[2020-03-01 17:30] LABS: COVID AG,FIA SOURCE NASOPHARYNGEAL
[2020-03-01 19:28] VITALS: BP 132/76
[2020-03-01] MEDS: SULFAMETHOX/TRIMETH DS 800-160 MG/TABLET PO SCH (20:19)
[2020-03-01] MEDS ORDERED: MELATONIN 3 MG TABLET PO PRN (21:00)
[2020-03-02] MEDS: IPRATROPIUM BROMIDE 0.5 MG/2.5 ML NEB SOLUTION NEB SCH ×5 (00:08→15:00)
[2020-03-02] MEDS: ALBUTEROL SULFATE 2.5 MG/0.5 ML NEB SOLUTION NEB SCH ×5 (00:08→15:00)
[2020-03-02 04:31] VITALS: BP 120/82
[2020-03-02] MEDS: HYDROCODONE/ACETAMINOPHEN 5-325 MG TABLET PO PRN (04:56)
[2020-03-02 05:17] LABS: GLUCOMETER DEV NAME(LOC) 6N.2; GLUCOSE,POINT OF CARE 107 MG/DL (70-110)
[2020-03-02] MEDS: ACETAMINOPHEN 325 MG TABLET PO PRN (06:46)
[2020-03-02 06:50] LABS: GLUCOMETER DEV NAME(LOC) 6S.1; GLUCOSE,POINT OF CARE 120 MG/DL (70-110)
[2020-03-02 07:45] VITALS: BP 146/80
[2020-03-02] MEDS ORDERED: HEPARIN SODIUM,PORCINE 5,000 UNITS/ML VIAL SQ SCH (08:30)
[2020-03-02] MEDS: MULTIVITAMINS WITH MINERALS, THERAPEUTIC TABLET PO SCH (09:00)
[2020-03-02] MEDS: ASPIRIN 81 MG CHEWABLE TABLET PO SCH (09:17)
[2020-03-02] MEDS: BECLOMETHASONE DIPR HFA 80 MCG/PUFF 10.6 GM INHALER IH SCH (09:29)
[2020-03-02] MEDS: SULFAMETHOX/TRIMETH DS 800-160 MG/TABLET PO SCH (09:30)
[2020-03-02 11:43] VITALS: BP 116/62
[2020-03-02 15:39] VITALS: BP 135/70
[2020-03-02 18:07] LABS: GLUCOMETER DEV NAME(LOC) 6N.2; GLUCOSE,POINT OF CARE 127 MG/DL (70-110)
== END 2020-03-02 15:20 | DRG 383 ==
LOC: EMS 03:09 → 6N 09:47
PROVIDERS: ADMIT Internal Medicine; ATTEND Internal Medicine
DX: L03.116 Cellulitis of left lower limb (principal); G92 Toxic encephalopathy; F10.129 Alcohol abuse with intoxication, unspecified; J44.9 Chronic obstructive pulmonary disease, unspecified; E44.0 Moderate protein-calorie malnutrition; I10 Essential (primary) hypertension; Y90.9 Presence of alcohol in blood, level not specified; E78.00 Pure hypercholesterolemia, unspecified; Z20.828 Contact with and (suspected) exposure to other viral communicable diseases; K70.31 Alcoholic cirrhosis of liver with ascites; Z91.19 Patient's noncompliance with other medical treatment and regimen; Z86.73 Personal history of transient ischemic attack (TIA), and cerebral infarction without residual deficits; Z88.8 Allergy status to other drugs, medicaments and biological substances; Z68.26 Body mass index [BMI] 26.0-26.9, adult
CPT/HCPCS: 72170; 73503; 76700; 83735; 87426; 93925; 93970; 94640; 97110; 97116; 97162; G0480; J0696; J1644; J2250; J2270; J2405; J2543; J3010; J3370; J3535; J7030; J7050; J7060; 36415-L1; 36415-TC; 71045-TC; 80202-TC; J7613

== ENCOUNTER 2020-10-14 01:14 | Inpatient (IN) | payer OTHER ==
[~2020-10-14] VITALS: Ht 165.1 cm; Wt 60.6 kg
[2020-10-14] VITALS (19 sets, daily range): BP systolic 104–132; BP diastolic 52–78
[~2020-10-14 01:14] MED LIST changes: -MULT-1119 PO; +MULT-1239 PO; -PRED10 PO; -PRED20 PO
[2020-10-14] MEDS ORDERED: MAGNESIUM SULFATE 2 GM, MVI, ADULT NO.1 WITH VIT K 10 ML, THIAMINE 100 MG, FOLIC ACID 1... IV ONE ×10 (01:45→18:00)
[2020-10-14] MEDS ORDERED: SODIUM CHLORIDE 0.9% 1,000 ML IV ONE ×2 (01:45→03:45)
[2020-10-14] MEDS ORDERED: DEXTROSE 50%-WATER 25 GM/50 ML SYRINGE IVP ONE (01:45)
[2020-10-14 01:46] LABS: GLUCOMETER DEV NAME(LOC) ERT.5; GLUCOSE,POINT OF CARE 69 MG/DL (70-110)
[2020-10-14] MEDS ORDERED: NALOXONE HCL 1 MG/ML 2 ML SYG IVP ONE (02:00)
[2020-10-14 03:00] LABS: APPEARANCE,URINE CLOUDY (CLEAR); GLUCOSE, URINE (UA) NEGATIVE (NEGATIVE); KETONES,URINE TRACE mg/dL (NEGATIVE); LEUKOCYTE ESTERASE ,URINE LARGE (NEGATIVE); NITRATE,URINE NEGATIVE (NEGATIVE); OCCULT BLOOD,URINE NEGATIVE (NEGATIVE); PH,URINE 5.5 (5.0-8.0); PROTEIN,URINE NEGATIVE (NEGATIVE)
[2020-10-14 03:04] LABS: BASOPHILS % (AUTO) 2.1 % (0.0-2.0); EOSINOPHILS % (AUTO) 5.4 % (1.0-6.0); HEMATOCRIT 22.3 % (41-53); LYMPHOCYTES # (AUTO) 1.9 K/uL (1.0-4.8); MEAN CORPUSCULAR HEMOGLOBIN 21.2 pg (26.0-34.0); MEAN CORPUSCULAR HGB CONC 29.5 G/dL (31.0-37.0); MEAN CORPUSCULAR VOLUME 72 fL (80-100); MONOCYTES # (AUTO) 1.5 K/uL (0.1-1.0); MONOCYTES % (AUTO) 16.2 % (2.0-9.0); NEUTROPHILS # (AUTO) 5.3 K/uL (1.8-7.7); NEUTROPHILS % (AUTO) 56.3 % (40.0-70.0); PLATELET COUNT (AUTO) 187 K/uL (150-450); RED BLOOD CELL COUNT(AUTO) 3.09 MIL/uL (4.50-5.90); RED CELL DISTRIBUTION WIDTH 23.7 % (11.5-14.5)
[2020-10-14 03:06] LABS: AMPHET/METH SCREEN,URINE NEGATIVE (NEGATIVE); BARBITURATE SCREEN, URINE NEGATIVE (NEGATIVE); BENZODIAZEPINES SCREEN,URINE NEGATIVE (NEGATIVE); CANNABINOID SCREEN,URINE NEGATIVE (NEGATIVE); COCAINE SCREEN,URINE POSITIVE (NEGATIVE); METHADONE SCREEN, URINE NEGATIVE (NEGATIVE); OPIATE SCREEN,URINE NEGATIVE (NEGATIVE)
[2020-10-14 03:07] LABS: PHENCYCLIDINE SCREEN,URINE NEGATIVE (NEGATIVE)
[2020-10-14 03:10] LABS: B-TYPE NATRIURETIC PEPTIDE 78 pg/mL (0-100)
[2020-10-14 03:10] LABS: BILIRUBIN,URINE PRELIM. POSITIVE (NEGATIVE)
[2020-10-14 03:14] LABS: ANION GAP 8 mmol/L (8-16); CALCIUM, TOTAL 8.4 mg/dL (8.8-10.5); CARBON DIOXIDE 24 mmol/L (22-29); CHLORIDE 108 mmol/L (98-107); CREATININE 1.08 mg/dL (0.60-1.30); GLOMERULAR FILTR. RATE CALC > 60 mL/min (>60); GLUCOSE,RANDOM 77 mg/dL (70-110); HEMOGLOBIN 6.6 g/dL (13.5-17.5); SODIUM SERUM 140 mmol/L (136-145); UREA NITROGEN, BLOOD 31 mg/dL (7-18)
[2020-10-14 03:17] LABS: ALANINE AMINOTRANSFERASE 35 U/L (12-78); ALBUMIN 2.4 g/dL (3.4-5.0); ALKALINE PHOSPHATASE 167 U/L (46-116); ASPARTATE AMINOTRANSFERASE 55 U/L (15-37); BILIRUBIN,TOTAL 1.9 mg/dL (0.1-1.0); CREATINE KINASE, TOTAL ONLY 72 U/L (39-308); LACTIC ACID 1.1 mmol/L (0.4-2.0); TOTAL PROTEIN, SERUM 6.4 g/dL (6.4-8.2)
[2020-10-14 03:19] LABS: BACTERIA,URINE Few /HPF (None Seen); RBC,URINE 0-2 /HPF (0-2); WBC,URINE 26-50 /HPF (0-5); YEAST,URINE Many /HPF (None Seen)
[2020-10-14] MEDS ORDERED: FLUCONAZOLE 200 MG/NACL ISOOSM 100 ML IV ONE (03:45)
[2020-10-14] MEDS ORDERED: 0.9% SODIUM CHLORIDE 10 ML SYRINGE IVP PRN (03:45)
[2020-10-14] MEDS ORDERED: CefTRIAXone 1 GM/DEXTROSE 50 ML IV ONE (03:45)
[2020-10-14] MEDS ORDERED: PANTOPRAZOLE SODIUM 40 MG/VIAL IVP ONE (03:45)
[2020-10-14] MEDS ORDERED: ACETAMINOPHEN 325 MG TABLET PO PRN (03:45)
[2020-10-14] MEDS ORDERED: ONDANSETRON HCL 4 MG/2 ML VIAL IVP PRN ×2 (03:45→04:00)
[2020-10-14 03:53] LABS: COVID AG,FIA SOURCE NASOPHARYNGEAL
[2020-10-14] MEDS ORDERED: PANTOPRAZOLE SODIUM 80 MG in SODIUM CHLORIDE 0.9% 100 ML IV SCH (04:00)
[2020-10-14 04:23] LABS: INR 1.4 (0.9-1.1); PROTHROMBIN TIME 14.6 SEC (9.4-11.6)
[2020-10-14] MEDS ORDERED: SODIUM CHLORIDE 0.45% 1,000 ML IV SCH (04:45)
[2020-10-14] MEDS ORDERED: LORazepam 2 MG TABLET PO PRN (04:45)
[2020-10-14] MEDS ORDERED: INSULIN LISPRO 100 UNITS/ML SQ PRN (08:15)
[2020-10-14] MEDS: CeFAZolin 1 GM/DEXTROSE 50 ML IV SCH ×2 (10:00→17:17)
[2020-10-14 18:36] LABS: GLUCOMETER DEV NAME(LOC) 5N.1C; GLUCOSE,POINT OF CARE 83 MG/DL (70-110)
[2020-10-14] MEDS: SODIUM CHLORIDE 0.9% 1,000 ML IV SCH (19:30)
[2020-10-14] MEDS: PANTOPRAZOLE SODIUM 40 MG/VIAL IVP SCH (20:39)
[2020-10-14 21:06] LABS: GLUCOMETER DEV NAME(LOC) 5S.2B; GLUCOSE,POINT OF CARE 136 MG/DL (70-110)
[2020-10-14 22:25] LABS: HEMOGLOBIN 9.8 g/dL (13.5-17.5)
[2020-10-14 22:26] LABS: HEMATOCRIT 32.5 % (41-53)
[2020-10-15] MEDS: CeFAZolin 1 GM/DEXTROSE 50 ML IV SCH ×3 (02:05→17:02)
[2020-10-15 03:40] VITALS: BP 122/60
[2020-10-15] MEDS: SODIUM CHLORIDE 0.9% 1,000 ML IV SCH (05:36)
[2020-10-15] MEDS: DEXTROSE 50%-WATER 25 GM/50 ML SYRINGE IVP PRN ×2 (05:46→11:57)
[2020-10-15 06:30] LABS: EOSINOPHILS % (AUTO) 3.8 % (1.0-6.0); HEMATOCRIT 32.4 % (41-53); HEMOGLOBIN 9.9 g/dL (13.5-17.5); LYMPHOCYTES # (AUTO) 1.9 K/uL (1.0-4.8); LYMPHOCYTES % (AUTO) 16.3 % (22.0-44.0); MEAN CORPUSCULAR HGB CONC 30.5 G/dL (31.0-37.0); MEAN CORPUSCULAR VOLUME 75 fL (80-100); MONOCYTES # (AUTO) 1.1 K/uL (0.1-1.0); MONOCYTES % (AUTO) 9.6 % (2.0-9.0); NEUTROPHILS # (AUTO) 7.9 K/uL (1.8-7.7); NEUTROPHILS % (AUTO) 69.3 % (40.0-70.0); PLATELET COUNT (AUTO) 199 K/uL (150-450); RED BLOOD CELL COUNT(AUTO) 4.31 MIL/uL (4.50-5.90); RED CELL DISTRIBUTION WIDTH 24.1 % (11.5-14.5)
[2020-10-15 06:53] LABS: ANION GAP 9 mmol/L (8-16); CALCIUM, TOTAL 8.4 mg/dL (8.8-10.5); CARBON DIOXIDE 22 mmol/L (22-29); CHLORIDE 112 mmol/L (98-107); CREATININE 0.71 mg/dL (0.60-1.30); GLOMERULAR FILTR. RATE CALC > 60 mL/min (>60); GLUCOSE,RANDOM 68 mg/dL (70-110); POTASSIUM 3.9 mmol/L (3.5-5.1); SODIUM SERUM 143 mmol/L (136-145); UREA NITROGEN, BLOOD 16 mg/dL (7-18)
[2020-10-15] MEDS ORDERED: LORazepam 2 MG TABLET PO PRN (07:00)
[2020-10-15 07:44] VITALS: BP 126/66
[2020-10-15] MEDS: LORazepam 2 MG TABLET PO SCH ×4 (07:51→21:00)
[2020-10-15] MEDS: PANTOPRAZOLE SODIUM 40 MG/VIAL IVP SCH ×2 (07:52→21:00)
[2020-10-15 09:39] LABS: GLUCOMETER DEV NAME(LOC) 5S.2B; GLUCOSE,POINT OF CARE 121 MG/DL (70-110)
[2020-10-15 11:18] VITALS: BP 124/64
[2020-10-15] MEDS ORDERED: SODIUM CHLORIDE 0.9% 1,000 ML IV ONE (13:00)
[2020-10-15] MEDS ORDERED: PEG 3350/NA SULF,BICARB,CL/KCL 4000 ML SOLUTION PO ONE (14:45)
[2020-10-15 16:11] VITALS: BP 153/85
[2020-10-15] MEDS: DEXTROSE 5%-0.45% SODIUM CHL 1,000 ML IV SCH (16:35)
[2020-10-15 19:15] VITALS: BP 124/74
[2020-10-15 23:00] VITALS: BP 126/70
[2020-10-16] MEDS: CeFAZolin 1 GM/DEXTROSE 50 ML IV SCH ×3 (01:53→17:31)
[2020-10-16 04:10] VITALS: BP 114/68
[2020-10-16 04:11] LABS: GLUCOMETER DEV NAME(LOC) 5S.1; GLUCOSE,POINT OF CARE 67 MG/DL (70-110)
[2020-10-16 04:12] LABS: GLUCOMETER DEV NAME(LOC) 5N.1C; GLUCOSE,POINT OF CARE 77 MG/DL (70-110)
[2020-10-16 04:12] LABS: GLUCOMETER DEV NAME(LOC) 5N.1C; GLUCOSE,POINT OF CARE 150 MG/DL (70-110)
[2020-10-16 04:12] LABS: GLUCOMETER DEV NAME(LOC) 5N.1C; GLUCOSE,POINT OF CARE 65 MG/DL (70-110)
[2020-10-16 04:12] LABS: GLUCOMETER DEV NAME(LOC) 5S.1; GLUCOSE,POINT OF CARE 120 MG/DL (70-110)
[2020-10-16] MEDS ORDERED: PROPOFOL 1% 20 ML VIAL IVP ONE (06:50)
[2020-10-16] MEDS ORDERED: LIDOCAINE/PF 2% 5 ML SYRINGE IVP ONE (06:50)
[2020-10-16 07:23] VITALS: BP 136/82
[2020-10-16] MEDS: PANTOPRAZOLE SODIUM 40 MG/VIAL IVP SCH ×2 (07:51→20:13)
[2020-10-16] MEDS: LORazepam 2 MG TABLET PO SCH ×4 (07:52→20:20)
[2020-10-16] MEDS ORDERED: SODIUM CHLORIDE 0.9% 1,000 ML ONE (08:40)
[2020-10-16 09:31] LABS: BASOPHILS % (AUTO) 2.5 % (0.0-2.0); EOSINOPHILS % (AUTO) 4.8 % (1.0-6.0); HEMATOCRIT 32.1 % (41-53); HEMOGLOBIN 9.8 g/dL (13.5-17.5); LYMPHOCYTES # (AUTO) 2.2 K/uL (1.0-4.8); LYMPHOCYTES % (AUTO) 25.5 % (22.0-44.0); MEAN CORPUSCULAR HEMOGLOBIN 23.2 pg (26.0-34.0); MEAN CORPUSCULAR HGB CONC 30.5 G/dL (31.0-37.0); MEAN CORPUSCULAR VOLUME 76 fL (80-100); MONOCYTES # (AUTO) 1.2 K/uL (0.1-1.0); MONOCYTES % (AUTO) 14.2 % (2.0-9.0); NEUTROPHILS # (AUTO) 4.6 K/uL (1.8-7.7); PLATELET COUNT (AUTO) 215 K/uL (150-450); RED BLOOD CELL COUNT(AUTO) 4.22 MIL/uL (4.50-5.90); RED CELL DISTRIBUTION WIDTH 25.2 % (11.5-14.5)
[2020-10-16] MEDS ORDERED: SODIUM CHLORIDE 0.9% 1,000 ML IV ONE (10:00)
[2020-10-16] MEDS ORDERED: FentaNYL CITRATE PF 100 MCG/2 ML VIAL ONE ×2 (10:08→10:10)
[2020-10-16] MEDS ORDERED: MIDAZOLAM HCL 5 MG/ML VIAL ONE (10:09)
[2020-10-16 10:10] LABS: GLUCOMETER DEV NAME(LOC) 5N.1C; GLUCOSE,POINT OF CARE 90 MG/DL (70-110)
[2020-10-16 11:30] LABS: GLUCOMETER DEV NAME(LOC) 5N.3; GLUCOSE,POINT OF CARE 110 MG/DL (70-110)
[2020-10-16 12:00] VITALS: BP 135/89
[2020-10-16] MEDS: DEXTROSE 5%-0.45% SODIUM CHL 1,000 ML IV SCH (12:30)
[2020-10-16 15:14] VITALS: BP 154/84
[2020-10-16 19:56] VITALS: BP 124/74
[2020-10-16 23:49] VITALS: BP 117/76
[2020-10-17] MEDS: DEXTROSE 5%-0.45% SODIUM CHL 1,000 ML IV SCH (03:16)
[2020-10-17] MEDS: CeFAZolin 1 GM/DEXTROSE 50 ML IV SCH ×3 (03:16→17:35)
[2020-10-17 03:47] LABS: GLUCOMETER DEV NAME(LOC) 5S.2B; GLUCOSE,POINT OF CARE 110 MG/DL (70-110)
[2020-10-17 04:17] VITALS: BP 129/71
[2020-10-17 05:09] LABS: GLUCOMETER DEV NAME(LOC) 5S.1; GLUCOSE,POINT OF CARE 80 MG/DL (70-110)
[2020-10-17 05:09] LABS: GLUCOMETER DEV NAME(LOC) 5S.1; GLUCOSE,POINT OF CARE 116 MG/DL (70-110)
[2020-10-17] MEDS ORDERED: PROPOFOL 1% 20 ML VIAL IVP ONE (06:47)
[2020-10-17] MEDS ORDERED: LORazepam 1 MG TABLET PO PRN (07:00)
[2020-10-17 07:11] LABS: GLUCOMETER DEV NAME(LOC) 5S.2B; GLUCOSE,POINT OF CARE 82 MG/DL (70-110)
[2020-10-17 07:27] VITALS: BP 133/68
[2020-10-17] MEDS: LORazepam 1 MG TABLET PO SCH ×4 (08:27→21:00)
[2020-10-17] MEDS: PANTOPRAZOLE SODIUM 40 MG/VIAL IVP SCH ×2 (08:27→19:41)
[2020-10-17 12:01] VITALS: BP 147/74
[2020-10-17 12:08] LABS: GLUCOMETER DEV NAME(LOC) 5S.2B; GLUCOSE,POINT OF CARE 92 MG/DL (70-110)
[2020-10-17 16:12] VITALS: BP 146/63
[2020-10-17 19:47] VITALS: BP 147/97
[2020-10-17 23:32] VITALS: BP 120/68
[2020-10-18] MEDS: CeFAZolin 1 GM/DEXTROSE 50 ML IV SCH ×3 (02:22→19:38)
[2020-10-18 04:29] VITALS: BP 127/75
[2020-10-18] MEDS ORDERED: LORazepam 1 MG TABLET PO PRN (07:00)
[2020-10-18 07:27] LABS: GLUCOMETER DEV NAME(LOC) 5S.1; GLUCOSE,POINT OF CARE 83 MG/DL (70-110)
[2020-10-18 07:28] LABS: GLUCOMETER DEV NAME(LOC) 5S.2B; GLUCOSE,POINT OF CARE 95 MG/DL (70-110)
[2020-10-18 07:28] LABS: GLUCOMETER DEV NAME(LOC) 5S.2B; GLUCOSE,POINT OF CARE 88 MG/DL (70-110)
[2020-10-18 08:22] VITALS: BP 115/73
[2020-10-18] MEDS: PANTOPRAZOLE SODIUM 40 MG/VIAL IVP SCH ×2 (08:56→19:41)
[2020-10-18] MEDS ORDERED: SODIUM CHLORIDE 0.9% 1,000 ML ONE (10:51)
[2020-10-18] MEDS ORDERED: MethylPREDNISolone SOD SUCC 125 MG/2 ML VIAL IVP ONE (11:00)
[2020-10-18 11:53] LABS: ABG A-A DIFF O2 75.2 mmHg (10-20.0); ABG BASE EXCESS -2.6 mmol/L (-2.0-3.0); ABG CARBOXYHEMOGLOBIN 0.3 % (0.0-1.5); ABG HCO3 22.5 mmol/L (22.0-26.0); ABG METHEMOGLOBIN 0.4 % (0.0-1.5); ABG OXYGEN CONTENT 13.6 mL/dL (15.0-23.0); ABG OXYHEMOGLOBIN 94.3 % (94.0-100.0); ABG PCO2 39 mmHg (35-45); ABG PH 7.378 (7.35-7.450); ABG TOTAL HEMOGLOBIN 10.2 G/dL (12.0-18.0); SOURCE, BLOOD GAS ARTERIAL; TEMPERATURE, FAHRENHEIT, BG 98.9 FAHREN (96.0-98.6)
[2020-10-18 11:54] LABS: O2 DEVICE,BLOOD GAS CANNULA (ROOM AIR); SITE, BLOOD GAS RT RADIAL
[2020-10-18] MEDS: ALBUTEROL SULFATE 2.5 MG/0.5 ML NEB SOLUTION NEB SCH ×4 (12:03→23:29)
[2020-10-18 12:32] LABS: GLUCOMETER DEV NAME(LOC) 5S.1; GLUCOSE,POINT OF CARE 130 MG/DL (70-110)
[2020-10-18 12:37] VITALS: BP 112/59
[2020-10-18 15:09] LABS: BASOPHILS % (AUTO) 2.5 % (0.0-2.0); EOSINOPHILS % (AUTO) 0.8 % (1.0-6.0); HEMATOCRIT 30.2 % (41-53); HEMOGLOBIN 9.3 g/dL (13.5-17.5); LYMPHOCYTES # (AUTO) 0.6 K/uL (1.0-4.8); LYMPHOCYTES % (AUTO) 10.2 % (22.0-44.0); MEAN CORPUSCULAR HEMOGLOBIN 23.3 pg (26.0-34.0); MEAN CORPUSCULAR HGB CONC 30.8 G/dL (31.0-37.0); MEAN CORPUSCULAR VOLUME 76 fL (80-100); MONOCYTES # (AUTO) 0.1 K/uL (0.1-1.0); MONOCYTES % (AUTO) 2.6 % (2.0-9.0); NEUTROPHILS # (AUTO) 4.8 K/uL (1.8-7.7); NEUTROPHILS % (AUTO) 83.9 % (40.0-70.0); PLATELET COUNT (AUTO) 198 K/uL (150-450); RED BLOOD CELL COUNT(AUTO) 3.99 MIL/uL (4.50-5.90); RED CELL DISTRIBUTION WIDTH 26.2 % (11.5-14.5)
[2020-10-18 15:29] LABS: ANION GAP 9 mmol/L (8-16); CARBON DIOXIDE 21 mmol/L (22-29); CHLORIDE 104 mmol/L (98-107); CREATININE 0.74 mg/dL (0.60-1.30); GLUCOSE,RANDOM 173 mg/dL (70-110); POTASSIUM 4.2 mmol/L (3.5-5.1); SODIUM SERUM 134 mmol/L (136-145); UREA NITROGEN, BLOOD 7 mg/dL (7-18)
[2020-10-18 15:30] LABS: CALCIUM, TOTAL 7.8 mg/dL (8.8-10.5); GLOMERULAR FILTR. RATE CALC > 60 mL/min (>60)
[2020-10-18 15:35] LABS: ALANINE AMINOTRANSFERASE 25 U/L (12-78); ALKALINE PHOSPHATASE 181 U/L (46-116); ASPARTATE AMINOTRANSFERASE 76 U/L (15-37); BILIRUBIN,TOTAL 1.4 mg/dL (0.1-1.0); TOTAL PROTEIN, SERUM 6.9 g/dL (6.4-8.2)
[2020-10-18 16:31] VITALS: BP 133/88
[2020-10-18 16:55] LABS: PLATELET MORPHOLOGY COMMENT GIANT PLTS PRESENT
[2020-10-18 19:06] VITALS: BP 137/87
[2020-10-18] MEDS ORDERED: 0.9% SODIUM CHLORIDE 5 ML NEB SOLUTION NEB ONE ×2 (19:42→23:26)
[2020-10-18 23:31] VITALS: BP 142/72
[2020-10-19] MEDS: CeFAZolin 1 GM/DEXTROSE 50 ML IV SCH ×3 (01:07→19:05)
[2020-10-19] MEDS ORDERED: 0.9% SODIUM CHLORIDE 5 ML NEB SOLUTION NEB ONE ×6 (03:24→22:27)
[2020-10-19] MEDS: ALBUTEROL SULFATE 2.5 MG/0.5 ML NEB SOLUTION NEB SCH ×6 (03:44→22:35)
[2020-10-19 04:53] VITALS: BP 145/78
[2020-10-19 07:41] VITALS: BP 128/69
[2020-10-19 11:29] VITALS: BP 121/72
[2020-10-19] MEDS: PANTOPRAZOLE SODIUM 40 MG/VIAL IVP SCH ×2 (11:31→20:29)
[2020-10-19] MEDS ORDERED: LACTULOSE 20 GM/30 ML SOLUTION UDCUP PO ONE (13:45)
[2020-10-19 16:10] VITALS: BP 130/66
[2020-10-19] MEDS: LACTULOSE 20 GM/30 ML SOLUTION UDCUP PO SCH (19:10)
[2020-10-19 19:30] VITALS: BP 133/64
[2020-10-19 23:48] VITALS: BP 133/64
[2020-10-20] MEDS ORDERED: SODIUM CHLORIDE 0.9% 250 ML IV ONE (01:43)
[2020-10-20] MEDS: CeFAZolin 1 GM/DEXTROSE 50 ML IV SCH ×2 (01:49→12:26)
[2020-10-20] MEDS ORDERED: 0.9% SODIUM CHLORIDE 5 ML NEB SOLUTION NEB ONE (03:00)
[2020-10-20] MEDS: ALBUTEROL SULFATE 2.5 MG/0.5 ML NEB SOLUTION NEB SCH ×5 (03:10→15:56)
[2020-10-20 04:11] VITALS: BP 141/89
[2020-10-20] MEDS: LACTULOSE 20 GM/30 ML SOLUTION UDCUP PO SCH ×3 (05:54→12:12)
[2020-10-20 07:46] VITALS: BP 144/72
[2020-10-20] MEDS: PANTOPRAZOLE SODIUM 40 MG/VIAL IVP SCH (08:24)
[2020-10-20 13:59] VITALS: BP 136/78
[2020-10-21] MEDS ORDERED: MULTIVITAMINS WITH MINERALS, THERAPEUTIC TABLET PO SCH (09:00)
[2020-10-21] MEDS ORDERED: THIAMINE 100 MG TABLET PO SCH (09:00)
[2020-10-21] MEDS ORDERED: FOLIC ACID 1 MG TABLET PO SCH (09:00)
[2020-10-21] MEDS ORDERED: BECLOMETHASONE DIPR HFA 80 MCG/PUFF 10.6 GM INHALER IH SCH (09:00)
== END 2020-10-20 17:40 | disposition home health service (06) | DRG 279 ==
LOC: EMS 01:15 → 5S 04:00
PROVIDERS: ADMIT Internal Medicine; ATTEND Internal Medicine
PROC: 30233N1 Transfusion of Nonautologous Red Blood Cells into Peripheral Vein, Percutaneous Approach (ICD-10-PCS; 2020-10-14)
PROC: 0DB68ZX Excision of Stomach, Via Natural or Artificial Opening Endoscopic, Diagnostic (ICD-10-PCS; principal; 2020-10-15 13:45)
PROC: 0DJD8ZZ Inspection of Lower Intestinal Tract, Via Natural or Artificial Opening Endoscopic (ICD-10-PCS; 2020-10-16)
DX: K72.90 Hepatic failure, unspecified without coma (principal); E43 Unspecified severe protein-calorie malnutrition; E11.649 Type 2 diabetes mellitus with hypoglycemia without coma; K57.91 Diverticulosis of intestine, part unspecified, without perforation or abscess with bleeding; D62 Acute posthemorrhagic anemia; N30.00 Acute cystitis without hematuria; K31.89 Other diseases of stomach and duodenum; F17.210 Nicotine dependence, cigarettes, uncomplicated; I86.8 Varicose veins of other specified sites; Z20.822 Contact with and (suspected) exposure to COVID-19; B19.20 Unspecified viral hepatitis C without hepatic coma; Z68.22 Body mass index [BMI] 22.0-22.9, adult
CPT/HCPCS: 36600; 70450; 71045; 80048; 80053; 81001; 82140; 82271; 82550; 82805; 82962; 83605; 83735; 83880; 84484; 85014; 85018; 85025; 85610; 85730; 86850; 86900; 86901; 86923; 87086; 88305; 88312; 88313; 93005; 93971; 94640; 94761; 97162; 97166; 97530; 97535; 99291; C9113; G0480; J0690; J0696; J1450; J2250; J2310; J2405; J2704; J2930; J3010; J3411; J3475; J3490; J7030; J7050; P9016; 36415-L1; 36415-TC; J7613